=== PATIENT | female | born 1950 | race Caucasian/White ===

== ENCOUNTER → 2018-09-29 14:51 | Outpatient (CLI) | payer MEDICARE, SELFPAY ==
--- NOTE | 2018-09-29 | DI.ECHO.S_ITS ---
[facility] +---------+ : : [address] : : : : [id number] : : : : Phone: [phone]+ Echocardiogram Report + + :Name: CHRISTINA JOHNSON Study Date: 09/29/2018 Height: 66 in : :[facility] Weight: 149 lb : : Gender: Female BSA: 1.8 m2 : :: 1950 Age: 68 yrs BP: 160/70 mmHg: :Reason For Study: Murmur : : Performed By: Lindsay Hoffman : :Referring: MARK FRYE : + + Interpretation Summary Normal sinus rhythm. Normal LV size, wall thickness, wall motion and LV systolic function. EF is 60-65%. Normal chamber sizes. Aortic sclerosis with mild-moderate associated AI. Mitral valve leaflets are normal; mild-moderate central MR. No prior study available for comparison. Procedure: A two-dimensional transthoracic echocardiogram with color flow and Doppler was performed. The study quality was technically adequate. There is no prior echocardiogram noted for this patient. The patient was in normal sinus rhythm during the exam. Left Ventricle: The left ventricle is normal in size, wall thickness, and systolic function without any focal wall motion abnormalities. The ejection fraction is estimated to be 60-65%. Diastolic parameters suggest a relaxation abnormality of the left ventricle, consistent with probable normal filling pressures. Right Ventricle: The right ventricle grossly appears normal in size with probable normal systolic function. Atria: The left atrial size is normal. Right atrial size is normal. The interatrial septum is intact with no evidence for an atrial septal defect. Mitral Valve: The mitral valve is not well visualized. There is mild to moderate mitral regurgitation. Aortic Valve: The aortic valve is trileaflet. The aortic valve opens well. There is mild to moderate aortic regurgitation. Tricuspid Valve: The tricuspid valve leaflets are thin and pliable. There is mild tricuspid regurgitation. The right ventricular systolic pressure is estimated to be at least 33 mmHg based on an estimated right atrial pressure of 8 mm Hg. Pulmonic Valve: The pulmonic valve is not well seen, but is grossly normal. There is trace pulmonic regurgitation. Great Vessels: The aortic root is normal size. The dimensions of the ascending aorta are normal. The aortic arch is normal in size. The IVC is dilated (diameter is greater than 2.1 cm) yet it collapses greater than 50% with a sniff. This suggests a right atrial pressure of 8 mm Hg. Pericardium/ Pleura There is no pericardial effusion. There is no pleural effusion. MMode/2D Measurements & Calculations LVIDd: 4.7 cm Ao root diam: 3.1 cm LVIDs: 2.5 cm Aortic Jxn: 2.5 cm FS: 46.5 % asc Aorta Diam: 3.3 cm EPSS: 0.60 cm Ao Arch Diam (Prox Trans): 2.9 cm IVSd: 0.86 cm LVPWd: 0.75 cm LV avilez. diameter/BSA (cm/m^2): 2.7 LV sys. diameter/BSA (cm/m^2): 1.4 LA dimension: 3.6 cm RA long axis: 5.1 cm LA A2 area: 20.5 cm2 RA area: 16.5 cm2 LA A4 area: 17.8 cm2 RA vol: 45.0 ml LA length (vol): 4.8 cm RA : 25.5 ml/m2 LA vol: 63.7 ml IVC diam: 2.1 cm LA vol index: 36.1 ml/m2 RVDd major: 5.5 cm RVD1 (basal): 3.8 cm RVD2 (mid): 3.1 cm Doppler Measurements & Calculations Ao V2 max: 136.5 cm/sec AI P1/2t: 525.7 msec Ao V2 mean: 86.8 cm/sec AI dec slope: 244.7 cm/sec2 Ao max P.5 mmHg Ao mean P.5 mmHg Ao V2 VTI: 33.2 cm MV E max george: 53.0 cm/sec TR max george: 252.1 cm/sec MV A max george: 82.9 cm/sec TR max P.4 mmHg MV E/A: 0.64 PA V2 max: 68.0 cm/sec Med Peak E' George: 6.4 cm/sec PA V2 mean: 43.4 cm/sec E/E' med: 8.3 PA mean P.90 mmHg Lat Peak E' George: 7.9 cm/sec PA Accel Time: 0.12 sec E/E' lat: 6.7 E/e' average: 7.5 MV dec time: 0.27 sec MV P1/2t: 79.9 msec MR ERO: 0.06 cm2 MV P1/2t max george: 51.7 cm/sec MR flow rate: 37.6 cm3/sec MVA(P1/2t): 2.8 cm2 MR HANEY radius: 0.39 cm Electronically signed by: Vera Dawn M.D. on Reading Physician:09/30/2018 07:19 AM
== END ==
PROVIDERS: PCP Physician Assistant; Visit Provider Physician Assistant
DX: I08.3 Combined rheumatic disorders of mitral, aortic and tricuspid valves (principal); R01.1 Cardiac murmur, unspecified
CPT/HCPCS: 93306

== ENCOUNTER → 2020-10-28 10:38 | Outpatient (CLI) | payer MEDICARE, SELFPAY ==
[2020-10-28 11:51] LABS: Hemoglobin A1C% w Est Avg Glu 5.6 % (4.0-6.0)
[2020-10-28 12:14] LABS: Alanine Aminotransferase 17 IU/L (<35); Albumin 4.3 g/dL (3.5-5.0); Albumin Globulin Ratio 1.3 (1.0-2.8); Alkaline Phosphatase 79 U/L (38-126); Aspartate Aminotransferase 31 IU/L (14-36); BUN Creatinine Ratio 18.9 (6-22); Bilirubin Total 0.7 mg/dL (0.2-1.3); Blood Urea Nitrogen 17 mg/dL (7-17); Calcium 9.2 mg/dL (8.4-10.2); Carbon Dioxide 28 mmol/L (22-32); Chloride 106 mmol/L (98-107); Cholesterol 192 mg/dL (140-199); Estimated Glomerular Filt Rate > 60.0 mL/min (>60); Globulin 3.2 g/dL (1.7-4.1); Glucose 97 mg/dL (80-110); HDL Cholesterol 86 mg/dL (40-60); HEMOLYSIS < 15 (0-50); LDL Cholesterol Calculated 85 mg/dL (<100); Potassium 4.7 mmol/L (3.4-5.1); Sodium 138 mmol/L (137-145); Total Protein 7.5 g/dL (6.3-8.2); Triglycerides 105 mg/dL (35-150)
[2020-10-28 12:16] LABS: Add Manual Diff / Slide Review NO; Basophils Absolute Auto 0 /uL (0-100); Basophils Percent Auto 0.4 % (0-2); Eosinophils Absolute Auto 100 /uL (0-450); Eosinophils Percent Auto 1.9 % (2-4); Hematocrit 38.3 % (36-46); Hemoglobin 12.7 g/dL (12.0-16.0); Lymphocytes Absolute Auto 1800 /uL (1100-4500); Lymphocytes Percent Auto 33.6 % (25-40); Mean Corpuscular HGB Conc 33.1 % (30-36); Mean Corpuscular Hemoglobin 28.6 PG (26-34); Mean Corpuscular Volume 86.2 fL (80-100); Monocytes Absolute Auto 400 /uL (0-900); Monocytes Percent Auto 6.9 % (3-14); Neutrophils Absolute Auto 3100 /uL (1500-7000); Neutrophils Percent Auto 57.2 % (50-75); Platelet Count 215 X10^3/uL (150-400); Red Blood Cell Count 4.44 X10^6/uL (4.0-5.2); Red Cell Distribution Width 13.9 % (11.6-14.8); White Blood Cell Count 5.4 X10^3/uL (4.5-11.0)
[2020-10-28 12:34] LABS: Vitamin D 25 Hydroxy (D3) 15.7 ng/mL (30.0-100.0)
== END ==
PROVIDERS: PCP Physician Assistant; Referring Provider Physician Assistant; Visit Provider Physician Assistant
DX: E78.2 Mixed hyperlipidemia (principal); E55.9 Vitamin D deficiency, unspecified; R73.03 Prediabetes; I10 Essential (primary) hypertension
CPT/HCPCS: 36415; 80053; 80061; 82306; 83036; 85025

== ENCOUNTER → 2021-07-30 09:01 | Outpatient (CLI) | payer MEDICARE, SELFPAY ==
--- NOTE | 2021-07-30 | DI.MRI.S_ITS ---
PROCEDURE: MR HEAD/BRAIN WO/W CON INDICATIONS: Dementia, Alzheimer's disease suspected. TECHNIQUE: Noncontrast axial T1 spin echo, axial T2 fast spin echo, sagittal and axial FLAIR, coronal T2 fast spin echo, axial gradient echo, axial diffusion and ADC through the brain. After the administration of contrast, axial and coronal T1 spin echo with fat saturation through the brain. COMPARISON: None. FINDINGS: Image quality: Excellent. CSF spaces: Basal cisterns are patent. No extra-axial fluid collections. Ventricles are normal in size and shape. Brain: No midline shift. No intracranial bleeds or masses. No abnormal intracranial enhancement. There is cerebral volume loss for age. There is periventricular white matter chronic small vessel ischemic change. The brainstem appears normal. Diffusion-weighted images demonstrate no acute ischemic insults. No chronic ischemic insults. Normal intravascular flow voids are present. Skull and face: Within the left frontal calvarium, there is enhancing focus seen, that measures 7 mm, as on series 13, image 142. Calvarial marrow is otherwise normal in signal. Orbits appear normal. Note is made of bilateral lens replacements. Sinuses: Sinuses and mastoids appear clear. A left-sided ariana bullosa can be seen. Mild rightward nasal septal deviation is seen. IMPRESSION: Brain MRI within normal limits for age, with note made of brain parenchymal volume loss and chronic small vessel ischemic change. 7 mm left frontal calvarial lesion seen, which is most likely benign, although differential diagnosis includes a metastatic focus. Please correlate with known patient history. Attention should be paid to this focus on any future follow-up studies. Dictated by: Bradley Alonso M.D. on 07/30/2021 at 8:45 Approved by: Bradley Alonso M.D. on 07/30/2021 at 8:48
--- NOTE | 2021-07-30 | DI.RAD.S_ITS ---
PROCEDURE: XR DEXA AXIAL SKELETON INDICATIONS: SCREENING FOR OSTEOPOROSIS COMPARISON: None. FINDINGS: This blank DEXA report has been sent in error by the PACS system. The correct and complete report will be forthcoming in 1-2 days. Thank you for your patience and understanding. Dictated by: Alyssa Ponce MD, PhD on 07/30/2021 at 10:47 Approved by: Alyssa Ponce MD, PhD on 07/30/2021 at 10:47
== END ==
PROVIDERS: PCP Physician Assistant; Referring Provider Internal Medicine; Visit Provider Internal Medicine
DX: F03.90 Unspecified dementia, unspecified severity, without behavioral disturbance, psychotic disturbance, mood disturbance, and anxiety (principal); R41.89 Other symptoms and signs involving cognitive functions and awareness; M89.9 Disorder of bone, unspecified; Z13.820 Encounter for screening for osteoporosis; M85.851 Other specified disorders of bone density and structure, right thigh; Z78.0 Asymptomatic menopausal state; Z90.722 Acquired absence of ovaries, bilateral
CPT/HCPCS: 70553; 77080; A9579

== ENCOUNTER → 2021-11-24 10:54 | Outpatient (CLI) | payer MEDICARE, SELFPAY ==
--- NOTE | 2021-11-24 10:56 | DI.MG.S_ITS ---
BILATERAL DIGITAL SCREENING MAMMOGRAM 3D/2D WITH CAD: 11/24/2021 CLINICAL: Routine screening. Baseline by default. No prior exams were available for comparison. The tissue of both breasts is heterogeneously dense. This may lower the sensitivity of mammography. Current study was also evaluated with a Computer Aided Detection (CAD) system. There are grouped calcifications in the left breast at 3 o'clock middle depth. No other significant masses, calcifications, or other findings are seen in either breast. IMPRESSION: INCOMPLETE: NEEDS ADDITIONAL IMAGING EVALUATION The grouped calcifications in the left breast are indeterminate. Magnification and lateral views as well as a diagnostic mammogram are recommended. This exam was interpreted at Station ID: [id number]. NOTE: For mammograms, a report in lay terms will be sent to the patient. Approximately 15% of breast malignancies will not be visualized mammographically. In the management of a palpable breast mass, a negative mammogram must not discourage biopsy of a clinically suspicious lesion. Electronically Signed By: Lupillo shah/nory:11/24/2021 12:11:58 letter sent: Additional Imaging Needed ACR BI-RADS Category 0: Incomplete 3340F
== END ==
PROVIDERS: PCP Physician Assistant; Referring Provider Physician Assistant; Visit Provider Physician Assistant
DX: Z12.31 Encounter for screening mammogram for malignant neoplasm of breast (principal)
CPT/HCPCS: 77063; 77067

== ENCOUNTER → 2021-12-26 13:16 | Outpatient (CLI) | payer MEDICARE, SELFPAY ==
--- NOTE | 2021-12-26 13:19 | DI.MG.S_ITS ---
UNILATERAL LEFT DIGITAL DIAGNOSTIC MAMMOGRAM 3D/2D WITH ADDITIONAL VIEWS: 12/26/2021 CLINICAL: Additional evaluation requested from prior study. Comparison is made to exam dated: 11/24/2021 mammogram - [facility]. The tissue of left breast is heterogeneously dense. This may lower the sensitivity of mammography. There are grouped coarse calcifications in the left breast at 3 o'clock middle depth. No other significant masses or calcifications are seen in the breast. 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 A follow-up left mammogram in 6 months is recommended to demonstrate stability. Findings and recommendations were conveyed to the patient during today's evaluation. This exam was interpreted at Station ID: [id number]. NOTE: For mammograms, a report in lay terms will be sent to the patient. Approximately 15% of breast malignancies will not be visualized mammographically. In the management of a palpable breast mass, a negative mammogram must not discourage biopsy of a clinically suspicious lesion. Electronically Signed By: Ross العلي/:12/26/2021 14:40:19 letter sent: Followup Recommended ACR BI-RADS Category 3: Probably benign 3343F
== END ==
PROVIDERS: PCP Physician Assistant; Referring Provider Physician Assistant; Visit Provider Physician Assistant
DX: R92.8 Other abnormal and inconclusive findings on diagnostic imaging of breast (principal); R92.1 Mammographic calcification found on diagnostic imaging of breast
CPT/HCPCS: 77065; G0279

== ENCOUNTER 2022-01-02 13:34 | Emergency (ER) | payer MEDICARE, SELFPAY ==
[2022-01-02] VITALS (12 sets, daily range): BP systolic 142–177; BP diastolic 67–96; PULSE 65–80; RESP 14; TEMP 36.6; O2SAT 96–98; BMI 23.6
--- NOTE | 2022-01-02 17:14 | ED_ITS ---
HPI - Fall General Chief Complaint: Fall Stated Complaint: fell in yard Time Seen by Provider: 01/02/22 16:49 Source: patient Mode of arrival: Ambulatory History of Present Illness HPI Narrative: Patient is a 71-year-old female who is here with family for evaluation of injuries that she sustained when she fell earlier today. Is reported that the patient lives with her daughter. Was out back picking up dog poop on a incline lawn when his reported that she fell forward hitting her face. There was no loss of consciousness. Patient has no specific complaints. Recently she has had some memory issues and is scheduled to see a neurologist next week along with a neuro psychologist. Patient's family at bedside states she is at [facility]. She does have abrasions to her face. Related Data Home Medications Medication Instructions Recorded Confirmed cyclobenzaprine 5 mg tablet 20 mg PO HS #0 08/03/16 diazepam 10 mg tablet #0 08/03/16 estradiol 1 mg tablet 1 mg PO QDAY #0 08/03/16 metronidazole 0.75 % topical cream #0 08/03/16 (MetroCream) sertraline 100 mg tablet 100 mg PO QDAY #0 08/03/16 Previous Rx's Medication Instructions Recorded ondansetron 4 mg disintegrating 4 mg SUBLINGUAL Q6HP PRN #20 odt 08/03/16 tablet (Zofran ODT) oxycodone-acetaminophen 5 mg-325 1 tab PO Q4HP PRN #20 tab 16 mg tablet (Percocet) Allergies Allergy/AdvReac Type Severity Reaction Status Date / Time lanolin [LANOLIN] Allergy Mild INFLAMED Verified 01/02/22 13:58 FACE bacitracin Allergy Unknown INFLAMMED Verified 01/02/22 13:58 [From NEOSPORIN SKIN ([id number])] neomycin Allergy Unknown INFLAMMED Verified 01/02/22 13:58 [From NEOSPORIN SKIN ([id number])] polymyxin B Allergy Unknown INFLAMMED Verified 01/02/22 13:58 [From NEOSPORIN SKIN ([id number])] citalopram [CITALOPRAM] AdvReac Unknown RECURRENT Verified 01/02/22 13:58 MIGRAINES Review of Systems Constitutional Comments: Denies headache Eyes Eyes: Reports system reviewed and no additional complaints, except as documented ENT Comments: Denies dental pain Cardiovascular Cardiovascular: Reports system reviewed and no additional complaints, except as documented Respiratory Respiratory: Reports system reviewed and no additional complaints, except as documented Gastrointestinal Gastrointestinal: Reports system reviewed and no additional complaints, except as documented Musculoskeletal Musculoskeletal: Reports system reviewed and no additional complaints, except as documented Integumentary/Breasts Skin/Breast: Reports system reviewed and no additional complaints, except as d ocumented Neurologic Neurologic: Reports system reviewed and no additional complaints, except as documented Hematologic/Lymphatic On Anticoagulants: No Patient History Social History Smoking Status: Unknown if ever smoked Smoking Status: Unknown if ever smoked alcohol intake frequency: holidays/special occasions only Substance Use Type: does not use Exam Initial Vital Signs Initial Vital Signs: Vital Signs Temperature 97.9 F 01/02/22 13:59 Pulse Rate 80 01/02/22 13:59 Respiratory Rate 14 01/02/22 13:59 Blood Pressure 168/75 H 01/02/22 13:59 Pulse Oximetry 98 01/02/22 13:59 Const General: cooperative, healthy appearing and well developed HENMT Ears: hearing grossly normal bilaterally and TM's normal bilaterally Nose: No nasal discharge Mouth: tongue normal and moist mucous membranes Other HENMT:: Maxilla intact Resp Effort & Inspection: normal respiratory effort Cardio Rate: regular rate GI Inspection: normal to inspection and non-distended Skin Other: Superficial abrasions on her forehead over her nose and her right upper lip. No active bleeding. Neuro General: patient alert, patient awake, patient oriented x3 (Person and place) and moves all extremities Extrem General: normal to inspection and capillary refill normal Course Orders Ordered: ED Orders 01/02/22 17:48 Basic Metabolic Panel Stat Complete Blood Count AUTO DIFF Stat Vital Signs Vital signs: Vital Signs - 8 hr 01/02/22 13:59 Temperature 97.9 F Pulse Rate 80 Respiratory Rate 14 Blood Pressure 168/75 H Pulse Oximetry 98 MDM - Fall Lab Data Result diagrams: 01/02/22 17:48 01/02/22 17:48 Labs: Lab Results 01/02/22 01/02/22 Range/Units 17:48 17:48 WBC 4.1 L (4.5-11.0) X10^3/uL RBC 4.23 (4.0-5.2) X10^6/uL Hgb 12.0 (12.0-16.0) g/dL Hct 34.9 L (36-46) % MCV 82.6 (80-100) fL MCH 28.4 (26-34) PG MCHC 34.3 (30-36) % RDW 14.2 (11.6-14.8) % Plt Count 178 (150-400) X10^3/uL Neut % (Auto) 64.6 (50-75) % Lymph % (Auto) 23.7 L (25-40) % [place] % (Auto) 7.8 (3-14) % Eos % (Auto) 3.2 (2-4) % Baso % (Auto) 0.7 (0-2) % Neut # (Auto) 2700 (6724-8070) /uL Lymph # (Auto) 1000 L (9349-9044) /uL [place] # (Auto) 300 (0-900) /uL Eos # (Auto) 100 (0-450) /uL Baso # (Auto) 0 (0-100) /uL Sodium 138 (137-145) mmol/L Potassium 4.3 (3.4-5.1) mmol/L Chloride 106 (98-107) mmol/L Carbon Dioxide 24 (22-32) mmol/L BUN 18 H (7-17) mg/dL Creatinine 1.23 H (0.52-1.04) mg/dL Estimated GFR 46 L (>60) mL/min BUN/Creatinine Ratio 14.6 (6-22) Glucose 95 (80-110) mg/dL Calcium 8.9 (8.4-10.2) mg/dL MDM Narrative Medical decision making narrative: Does appear to be a mechanical fall after losing her balance on a inclined in the yard. Not on anticoagulation. Is at baseline neurologic status per family. Has superficial abrasions on her face. Labs relatively unremarkable. I do feel that we can hold on a head CT for now as I have low suspicion for skull fracture or intracranial hemorrhage given her presentation today. Plan to be is to discharge home to continue with her scheduled outpatient follow-up. Patient and daughter were given return precautions. They expressed understanding and agreement. Discharge Plan Departure Patient Disposition: Home Clinical Impression: Closed head injury, Abrasion of face Instructions: How to Prevent Falls Activity Restrictions/Additional Instructions: Continue to take all of your medications as directed and keep all of your scheduled medical appointments. Return to the emergency department for any new or worsening symptoms. Prescriptions: No Action cyclobenzaprine 5 MG tablet 20 mg PO HS Qty: 0 0RF estradiol 1 MG tablet 1 mg PO QDAY Qty: 0 0RF diazepam 10 MG tablet Qty: 0 0RF sertraline 100 MG tablet 100 mg PO QDAY Qty: 0 0RF metronidazole [MetroCream] 0.75 % cream Qty: 0 0RF oxycodone-acetaminophen [Percocet] 5 MG/325 MG tablet 1 tab PO Q4HP PRNQty: 20 0RF ondansetron [Zofran ODT] 4 MG tablet,disintegrating 4 mg Sublingual Q6HP PRNQty: 20 0RF Referrals: Katia Thomas PA-C [Primary Care Provider] -
[2022-01-02 18:04] LABS: Add Manual Diff / Slide Review NO; Basophils Absolute Auto 0 /uL (0-100); Basophils Percent Auto 0.7 % (0-2); Eosinophils Absolute Auto 100 /uL (0-450); Eosinophils Percent Auto 3.2 % (2-4); Hematocrit 34.9 % (36-46); Lymphocytes Absolute Auto 1000 /uL (1100-4500); Lymphocytes Percent Auto 23.7 % (25-40); Mean Corpuscular HGB Conc 34.3 % (30-36); Mean Corpuscular Hemoglobin 28.4 PG (26-34); Mean Corpuscular Volume 82.6 fL (80-100); Monocytes Absolute Auto 300 /uL (0-900); Monocytes Percent Auto 7.8 % (3-14); Neutrophils Absolute Auto 2700 /uL (1500-7000); Neutrophils Percent Auto 64.6 % (50-75); Platelet Count 178 X10^3/uL (150-400); Red Blood Cell Count 4.23 X10^6/uL (4.0-5.2); Red Cell Distribution Width 14.2 % (11.6-14.8); White Blood Cell Count 4.1 X10^3/uL (4.5-11.0)
[2022-01-02 18:09] LABS: BUN Creatinine Ratio 14.6 (6-22); Blood Urea Nitrogen 18 mg/dL (7-17); Calcium 8.9 mg/dL (8.4-10.2); Carbon Dioxide 24 mmol/L (22-32); Chloride 106 mmol/L (98-107); Estimated Glomerular Filt Rate 46 mL/min (>60); Glucose 95 mg/dL (80-110); HEMOLYSIS 20 (0-50); Potassium 4.3 mmol/L (3.4-5.1); Sodium 138 mmol/L (137-145)
== END 2022-01-02 18:42 | disposition home or self-care (01) ==
PROVIDERS: Emergency Provider Emergency Medicine; PCP Physician Assistant
DX: S09.90XA Unspecified injury of head, initial encounter (principal); S00.81XA Abrasion of other part of head, initial encounter; W18.30XA Fall on same level, unspecified, initial encounter
CPT/HCPCS: 36415; 80048; 85025; 99283

== ENCOUNTER 2022-05-05 10:30 | Outpatient (RCR) | payer MEDICARE, SELFPAY ==
--- NOTE | 2022-02-12 13:57 | PT-OP ANOTE ---
Pt and her daughter forgot about appointment today, called 5 minutes before scheduled start time to cancel. Will plan to evaluate pt at next scheduled visit. Pt was reminded of attendance policy.
--- NOTE | 2022-02-19 15:57 | PT.OIE ---
Current Diagnoses Unsteadiness on feet (02/19/22) Other abnormalities of gait and mobility (02/19/22) Other symptoms and signs involving cognitive functions and awareness (02/19/22) History of falling (02/19/22) Visit Care Team Role Provider Type Katia Thomas PA-C Family Provider Non-Staff Primary Care Provider Specialty: Internal Medicine Address: [address] [place] [address], [id number] Email: [email or web address] Mayra Mariscal Attending Provider Non-Staff Referring Provider Specialty: Psychiatry Address: [address] [place] [address], [id number] Email: Physical Therapy Initial Evaluation PT-OP-A Visit Information Start: 02/11/22 08:27 Freq: Status: Active Protocol: Document 02/19/22 13:44 AMB (Rec: 02/19/22 14:49 AMB [id number]) Out-Patient Physical Therapy Visit Information Visit Information Visit Type Initial Evaluation Visit Start Time 13:45 Visit Stop Time 14:30 Total Visit Minutes 45 Visit Number 2 PT-OP-B Current Condition Start: 02/11/22 08:27 Freq: Status: Active Protocol: Document 02/19/22 13:44 AMB (Rec: 02/19/22 14:49 AMB [id number]) Current Condition History of Current Condition Onset Date November 2021 Current Complaints Multiple falls, difficulty with overall mobility History of Current Condition Helen (pronounced Catherine with an L): attends without AD, but is guarded closely by her daughter Kristin and needs assistance with pathfinding. Neurology on 01/28/22 for memory loss. Pt has gait instability , depression, anxiety, neck pain, insomnia (without REM disorder), BUE tremors. MOCA score of 30. Began trial of sinemet. Recommendation for hearing aids. History of tinnitus. Neuropsych in December suggested possible Lewy body dementia Daughter, Kristin lives with pt, pays bills, manages appointments, and cooks. Spouse in 2019 from glioblastoma - increased depression. Likes to sew and do puzzles but has not engaged lately. Kristin is no longer working outside the home due to taking care of her mom, she is concerned about her mom's large 4 year old dog being a balance hazard. Recent falls (daughter reports at least 5 in the last 6 months). Increased functional decline and memory loss. No longer walking dog. Daughter is concerned about sit to stand and then when prompted is also concerned about floor transfer, bed mobility, appropriate assistive device. No stairs in home, but 3 stairs to enter without railings. Does have a shower stool, but pt doesn't think she needs to use it, Kristin reports it can take Lanne 1-2 hours to get dressed, but she does do it herself. Prior Functional Status Baseline Function- ADL's Independent Baseline Function- Mobility Independent Current Functional Impairments (Reported) Functional Limitations- ADL's extended time needed for dressing, no longer cooking, driving. Personal Factors Other Personal Factors That May Effect Lanne reports R hip pain with Therapy/Recovery walking PT-OP-E Functional Tests Start: 02/11/22 08:27 Freq: Status: Active Protocol: Document 02/19/22 14:30 AMB (Rec: 02/19/22 15:40 AMB [id number]) Functional Tests 10 Meter Walk Test Distance 7 Device Used none Comments fast =7 seconds, 10= self selected pace Dynamic Gait Index (DGI) Score 6 DGI Impairment Rating 60 to <80% Impaired (Score 5-9 ) PT-OP-G Mobility & Gait Start: 02/11/22 08:27 Freq: Status: Active Protocol: Document 02/19/22 14:30 AMB (Rec: 02/19/22 15:40 AMB [id number]) OP Mobility Evaluation Transfers Sit to Stand heavy verbal and physical cues for sit to stand- pt usually needs Luda or something to pull on at home per daughter, cued WBOS, feet underneath MONSERRAT , nose over toes to encourage forward lean, pt tends to have post LOB OP Gait Assessment Comments Gait Comments Shuffling gait pattern, does tend to catch toes, not currently using AD, needs CGA/ Luda to prevent LOB Stair Climbing Evaluation Evaluation Level of Assist On Stairs Contact Guard Assistance Devices Stair Climbing Assistive Devices Left Railing,Right Railing Comments Stair Climbing Comments CGA can ascend and descend 4 steps with 2 railings with alternating gait pattern, but needs extra time to really feel where she is placing her feet PT-OP-M Strength Start: 02/11/22 08:27 Freq: Status: Active Protocol: Document 02/19/22 14:30 AMB (Rec: 02/19/22 15:40 AMB [id number]) Hip Strength Hip Manual Muscle Testing Right Flexion (L2) 4+ Good+ Abduction 4 Good Adduction 4 Good Comments tested in seated Left Flexion (L2) 4+ Good+ Abduction 4 Good Adduction 4 Good Comments tested in seated Knee Strength Knee Manual Muscle Testing Right Flexion (S2) 5 Normal Extension (L3) 5 Normal Left Flexion (S2) 5 Normal Extension (L3) 5 Normal Ankle/Foot Strength Ankle and Foot Manual Muscle Testing Right Dorsiflexion (L4) 4 Good Plantarflexion (S1) 4 Good Left Dorsiflexion (L4) 4 Good Plantarflexion (S1) 4 Good PT-OP-T Assessment and Plan Start: 02/11/22 08:27 Freq: Status: Active Protocol: Document 02/19/22 15:45 AMB (Rec: 02/19/22 15:56 AMB [id number]) Physical Therapy Assessment Rehab Potential Rehabilitation Potential Good Evaluation Complexity Number of Personal Factors/Comorbidities 1-2 Impairments Impairments Activity Tolerance,Balance, Functional Activities, Functional Mobility,Gait,Pain, Posture,Strength Goals Two Impairment Sit to stand Short Term Goal (STG) Helen will stand from a standard height chair using UE support but without posterior LOB. STG Duration 4 weeks Clinical Appeals Auditor Goal (LTG) Helen will stand 5x from a standard height chair in 20 seconds or less. LTG Duration 8 weeks One Impairment Gait Short Term Goal (STG) Helen will improve her DGI score to 12/24 or greater to show reduced risk of falling. STG Duration 4 weeks Snf Goal (LTG) Helen will ambulate with an appropriate AD for 6 minutes over smooth terrain without LOB or right hip pain. LTG Duration 8 weeks Assessment Summary Assessment Helen attends physical therapy with her daughter Kristin with working diagnosis of Lewy Body dementia. The patient and her daughter are mostly concerned with her transfers ( sit to stand) and gait and reducing her fall risk and keeping her as independent as possible for as long as possible. Helen is also concerned about her right hip pain, freezing episodes, and shuffling gait. Her DGI score and history of falls put her in a high fall risk category. Would benefit from assistive device training if it is helpful, as well as instruction in sit to stand, floor transfer, bed mobility training. Physical Therapy Plan Frequency and Duration Frequency of Treatment 2x/Week Duration of Treatment 8 weeks Plan of Care Start Date 02/19/22 Plan of Care End Date 04/20/22 Therapeutic Interventions Therapeutic Interventions Balance Training,Gait Training ,Joint Mobilizations,Manual Therapy,Neuromuscular Re- education,Self-Care/Home Management,Therapeutic Activities,Therapeutic Exercises Modalities Cold Pack/Ice Massage,Electric Stimulation,Hot Packs Next Visit Focus/Plan Next Note Type Treatment Note Next Visit Plan Educate Kristin on assistive device options and assess safety (does Helen have the ability to use an AD safely with training). Reassess HEP for sit to stand (focusing on forward lean/good amplitude/ motor planning). Progress HEP as tolerated.
--- NOTE | 2022-02-19 15:58 | PT.OPPOC ---
Physical, Occupational & Speech Therapy At [facility] Current Diagnoses Unsteadiness on feet (02/19/22) Other abnormalities of gait and mobility (02/19/22) Other symptoms and signs involving cognitive functions and awareness (02/19/22) History of falling (02/19/22) Visit Care Team Role Provider Type Katia Thomas PA-C Family Provider Non-Staff Primary Care Provider Specialty: Internal Medicine Address: [address] [place] [address], [id number] Email: [email or web address] Mayra Mariscal Attending Provider Non-Staff Referring Provider Specialty: Psychiatry Address: [address] [place] [address] [place], [address] Email: Plan Of Care PT-OP-T Assessment and Plan Start: 02/11/22 08:27 Freq: Status: Active Protocol: Document 02/19/22 15:45 AMB (Rec: 02/19/22 15:56 AMB [id number]) Physical Therapy Assessment Rehab Potential Rehabilitation Potential Good Evaluation Complexity Number of Personal Factors/Comorbidities 1-2 Impairments Impairments Activity Tolerance,Balance, Functional Activities, Functional Mobility,Gait,Pain, Posture,Strength Goals Two Impairment Sit to stand Short Term Goal (STG) Helen will stand from a standard height chair using UE support but without posterior LOB. STG Duration 4 weeks Carrot Buncher Goal (LTG) Helen will stand 5x from a standard height chair in 20 seconds or less. LTG Duration 8 weeks One Impairment Gait Short Term Goal (STG) Helen will improve her DGI score to 12/24 or greater to show reduced risk of falling. STG Duration 4 weeks Care Home Goal (LTG) Helen will ambulate with an appropriate AD for 6 minutes over smooth terrain without LOB or right hip pain. LTG Duration 8 weeks Assessment Summary Assessment Helen attends physical therapy with her daughter Kristin with working diagnosis of Lewy Body dementia. The patient and her daughter are mostly concerned with her transfers ( sit to stand) and gait and reducing her fall risk and keeping her as independent as possible for as long as possible. Helen is also concerned about her right hip pain, freezing episodes, and shuffling gait. Her DGI score and history of falls put her in a high fall risk category. Would benefit from assistive device training if it is helpful, as well as instruction in sit to stand, floor transfer, bed mobility training. Physical Therapy Plan Frequency and Duration Frequency of Treatment 2x/Week Duration of Treatment 8 weeks Plan of Care Start Date 02/19/22 Plan of Care End Date 04/20/22 Therapeutic Interventions Therapeutic Interventions Balance Training,Gait Training ,Joint Mobilizations,Manual Therapy,Neuromuscular Re- education,Self-Care/Home Management,Therapeutic Activities,Therapeutic Exercises Modalities Cold Pack/Ice Massage,Electric Stimulation,Hot Packs Next Visit Focus/Plan Next Note Type Treatment Note Next Visit Plan Educate Kristin on assistive device options and assess safety (does Helen have the ability to use an AD safely with training). Reassess HEP for sit to stand (focusing on forward lean/good amplitude/ motor planning). Progress HEP as tolerated. Plan of Care Dates Plan of Care Start Date 02/19/22 Plan of Care End Date 04/20/22 Electronically Signed by: Radha Aaron, PT 02/19/22 7005 If you are in agreement with this Plan of Care, please return a signed and dated copy. I have reviewed this Plan of Care and certify that the skilled therapy services above are required to meet the patient?s needs. Physician Signature Date Printed Name and Credentials Clinical Instructor Signature Printed Name and Credentials
--- NOTE | 2022-02-24 12:09 | PT.OTN ---
Current Diagnoses Unsteadiness on feet (02/24/22) Other abnormalities of gait and mobility (02/24/22) Other symptoms and signs involving cognitive functions and awareness (02/24/22) History of falling (02/24/22) Physical Therapy Treatment Note PT-OP-A Visit Information Start: 02/11/22 08:27 Freq: Status: Active Protocol: Document 02/24/22 10:40 NBM (Rec: 02/24/22 12:09 NBM [id number]) Out-Patient Physical Therapy Visit Information Visit Information Visit Type Initial Evaluation Visit Start Time 10:40 Visit Stop Time 11:26 Total Visit Minutes 46 Visit Number 2 Number of ACCOUNTS PAYABLE ADMINISTRATOR Visits 1 PT-OP-B Current Condition Start: 02/11/22 08:27 Freq: Status: Active Protocol: Document 02/19/22 13:44 AMB (Rec: 02/19/22 14:49 AMB [id number]) Current Condition History of Current Condition Onset Date November 2021 Current Complaints Multiple falls, difficulty with overall mobility History of Current Condition Helen (ginny Alexander with an L): attends without AD, but is guarded closely by her daughter Kristin and needs assistance with pathfinding. Neurology on 01/28/22 for memory loss. Pt has gait instability , depression, anxiety, neck pain, insomnia (without REM disorder), BUE tremors. MOCA score of 1230. Began trial of sinemet. Recommendation for hearing aids. History of tinnitus. Neuropsych in December suggested possible Lewy body dementia Daughter, Kristin lives with pt, pays bills, manages appointments, and cooks. Spouse in 2019 from glioblastoma - increased depression. Likes to sew and do puzzles but has not engaged lately. Kristin is no longer working outside the home due to taking care of her mom, she is concerned about her mom's large 4 year old dog being a balance hazard. Recent falls (daughter reports at least 5 in the last 6 months). Increased functional decline and memory loss. No longer walking dog. Daughter is concerned about sit to stand and then when prompted is also concerned about floor transfer, bed mobility, appropriate assistive device. No stairs in home, but 3 stairs to enter without railings. Does have a shower stool, but pt doesn't think she needs to use it, Kristin reports it can take Helen 1-2 hours to get dressed, but she does do it herself. Prior Functional Status Baseline Function- ADL's Independent Baseline Function- Mobility Independent Current Functional Impairments (Reported) Functional Limitations- ADL's extended time needed for dressing, no longer cooking, driving. Personal Factors Other Personal Factors That May Effect Helen reports R hip pain with Therapy/Recovery walking PT-OP-C Subjective Start: 02/11/22 08:27 Freq: Status: Active Protocol: Document 02/24/22 10:40 NBM (Rec: 02/24/22 12:09 NBM [id number]) OP-PT Subjective Patient Comments Patient Comments Pt arrives w/o AD and with daughter Kristin. Pt experiences a hiccup in her R hip with standing and sitting. Daughter reports Helen fell two days ago on that hip which might be why it 's bothering her. Pt has been practicing Sit<>Stands at home and would like to explore AD options. PT-OP-E Functional Tests Start: 02/11/22 08:27 Freq: Status: Active Protocol: Document 02/19/22 14:30 AMB (Rec: 02/19/22 15:40 AMB [id number]) Functional Tests 10 Meter Walk Test Distance 7 Device Used none Comments fast =7 seconds, 10= self selected pace Dynamic Gait Index (DGI) Score 6 DGI Impairment Rating 60 to <80% Impaired (Score 5-9 ) PT-OP-G Mobility & Gait Start: 02/11/22 08:27 Freq: Status: Active Protocol: Document 02/19/22 14:30 AMB (Rec: 02/19/22 15:40 AMB [id number]) OP Mobility Evaluation Transfers Sit to Stand heavy verbal and physical cues for sit to stand- pt usually needs Luda or something to pull on at home per daughter, cued WBOS, feet underneath MONSERRAT , nose over toes to encourage forward lean, pt tends to have post LOB OP Gait Assessment Comments Gait Comments Shuffling gait pattern, does tend to catch toes, not currently using AD, needs CGA/ Luda to prevent LOB Stair Climbing Evaluation Evaluation Level of Assist On Stairs Contact Guard Assistance Devices Stair Climbing Assistive Devices Left Railing,Right Railing Comments Stair Climbing Comments CGA can ascend and descend 4 steps with 2 railings with alternating gait pattern, but needs extra time to really feel where she is placing her feet PT-OP-M Strength Start: 02/11/22 08:27 Freq: Status: Active Protocol: Document 02/19/22 14:30 AMB (Rec: 02/19/22 15:40 AMB [id number]) Hip Strength Hip Manual Muscle Testing Right Flexion (L2) 4+ Good+ Abduction 4 Good Adduction 4 Good Comments tested in seated Left Flexion (L2) 4+ Good+ Abduction 4 Good Adduction 4 Good Comments tested in seated Knee Strength Knee Manual Muscle Testing Right Flexion (S2) 5 Normal Extension (L3) 5 Normal Left Flexion (S2) 5 Normal Extension (L3) 5 Normal Ankle/Foot Strength Ankle and Foot Manual Muscle Testing Right Dorsiflexion (L4) 4 Good Plantarflexion (S1) 4 Good Left Dorsiflexion (L4) 4 Good Plantarflexion (S1) 4 Good PT-OP-Q Treatments Start: 02/11/22 08:27 Freq: Status: Active Protocol: Document 02/24/22 10:40 NBM (Rec: 02/24/22 12:09 NBM [id number]) Therapeutic Exercises Sitting Exercises Scapular Retraction Sitting Exercise Name Shoulder blade squeeze Reps/Minutes 10 x 5SH Comments Verbal/Tactile cueing Therapeutic Activity Therapeutic Activity STS Name Sit to Stand Reps/Minutes 1 x 10 Comments VC for motor planning: Scoot to Edge, feet apart, nose over toes, push off chair. For sitting vc for feeling chair on back of legs and reaching back. Gait Training Gait Activity AD Trial Description Seated breaks between each trial Device Used 1. SPC 2. FWW 3. 4WW Level of Assistance CGA Surface Carpet, Tile Distance/Duration 25 ft ea Comments SPC: Pt demonstrated safe step -through gait pattern w/ initial vc for upright posture and gait pattern. FWW: Pt demonstrated safe step -through gait pattern w/ vc for walker proximity and upright posture and pacing. Pt needs cuing not to use FWW w/ Sit<>Stand. 4WW: Pt demonstrates safe step -through gait pattern w/ vc for pacing and upright posture. Pt requires cues to apply brakes and for UE placement before Sit<>Stand. PT-OP-T Assessment and Plan Start: 02/11/22 08:27 Freq: Status: Active Protocol: Document 02/24/22 10:40 NBM (Rec: 02/24/22 12:09 NBM [id number]) Physical Therapy Assessment Goals Two Impairment Sit to stand Short Term Goal (STG) Helen will stand from a standard height chair using UE support but without posterior LOB. STG Duration 4 weeks Half-Way Goal (LTG) Helen will stand 5x from a standard height chair in 20 seconds or less. LTG Duration 8 weeks One Impairment Gait Short Term Goal (STG) Helen will improve her DGI score to 12/24 or greater to show reduced risk of falling. STG Duration 4 weeks Beam Press Operator Goal (LTG) Helen will ambulate with an appropriate AD for 6 minutes over smooth terrain without LOB or right hip pain. LTG Duration 8 weeks Assessment Summary Assessment Sit<>Stand motor planning improved with repetition but requires cueing for wider base of support. Pt demonstrates safety with SPC but wants more stability. Gait w/ FWW pt needs vc for keeping walker closer and upright posture, and uses step-to gait pattern. With 4WW pt demonstrates step -through gait pattern on carpet and tile, and needs vc for upright posture, and pt prefers 4WW. Discussed importance of using brakes and not using FWW for Sit<>Stand. Physical Therapy Plan Next Visit Focus/Plan Next Note Type Treatment Note Next Visit Plan Reassess chosen AD for safety (pt and daughter''s preference end of treatment is FWW. If not obtained yet pt will bring their SPC in meantime). Reassess HEP for sit to stand (focusing on forward lean/good amplitude/motor planning) and seated scapular retraction. Progress HEP as tolerated - consider hip abduction/ extension exercises.
--- NOTE | 2022-02-26 17:08 | PT.OTN ---
Current Diagnoses Unsteadiness on feet (02/26/22) Other abnormalities of gait and mobility (02/26/22) Other symptoms and signs involving cognitive functions and awareness (02/26/22) History of falling (02/26/22) Physical Therapy Treatment Note PT-OP-A Visit Information Start: 02/11/22 08:27 Freq: Status: Active Protocol: Document 02/26/22 12:53 AW (Rec: 02/26/22 13:51 AW [id number]) Out-Patient Physical Therapy Visit Information Visit Information Visit Type Treatment Note Visit Start Time 13:00 Visit Stop Time 13:45 Total Visit Minutes 45 Visit Number 3 Number of DOLLY PUSHER Visits 0 PT-OP-B Current Condition Start: 02/11/22 08:27 Freq: Status: Active Protocol: Document 02/19/22 13:44 AMB (Rec: 02/19/22 14:49 AMB [id number]) Current Condition History of Current Condition Onset Date November 2021 Current Complaints Multiple falls, difficulty with overall mobility History of Current Condition Helen (ginny Alexander with an L): attends without AD, but is guarded closely by her daughter Kristin and needs assistance with pathfinding. Neurology on 01/28/22 for memory loss. Pt has gait instability , depression, anxiety, neck pain, insomnia (without REM disorder), BUE tremors. MOCA score of 08/21. Began trial of sinemet. Recommendation for hearing aids. History of tinnitus. Neuropsych in December suggested possible Lewy body dementia Daughter, Kristin lives with pt, pays bills, manages appointments, and cooks. Spouse in 2019 from glioblastoma - increased depression. Likes to sew and do puzzles but has not engaged lately. Kristin is no longer working outside the home due to taking care of her mom, she is concerned about her mom's large 4 year old dog being a balance hazard. Recent falls (daughter reports at least 5 in the last 6 months). Increased functional decline and memory loss. No longer walking dog. Daughter is concerned about sit to stand and then when prompted is also concerned about floor transfer, bed mobility, appropriate assistive device. No stairs in home, but 3 stairs to enter without railings. Does have a shower stool, but pt doesn't think she needs to use it, Kristin reports it can take Helen 1-2 hours to get dressed, but she does do it herself. Prior Functional Status Baseline Function- ADL's Independent Baseline Function- Mobility Independent Current Functional Impairments (Reported) Functional Limitations- ADL's extended time needed for dressing, no longer cooking, driving. Personal Factors Other Personal Factors That May Effect Helen reports R hip pain with Therapy/Recovery walking PT-OP-C Subjective Start: 02/11/22 08:27 Freq: Status: Active Protocol: Document 02/26/22 12:53 AW (Rec: 02/26/22 13:51 AW [id number]) OP-PT Subjective Patient Comments Patient Comments Pt and daughter, Kristin, plan to go to [employer] tomorrow to grain picker a 4WW. PT-OP-E Functional Tests Start: 02/11/22 08:27 Freq: Status: Active Protocol: Document 02/19/22 14:30 AMB (Rec: 02/19/22 15:40 AMB [id number]) Functional Tests 10 Meter Walk Test Distance 7 Device Used none Comments fast =7 seconds, 10= self selected pace Dynamic Gait Index (DGI) Score 6 DGI Impairment Rating 60 to <80% Impaired (Score 5-9 ) PT-OP-G Mobility & Gait Start: 02/11/22 08:27 Freq: Status: Active Protocol: Document 02/19/22 14:30 AMB (Rec: 02/19/22 15:40 AMB [id number]) OP Mobility Evaluation Transfers Sit to Stand heavy verbal and physical cues for sit to stand- pt usually needs Luda or something to pull on at home per daughter, cued WBOS, feet underneath MONSERRAT , nose over toes to encourage forward lean, pt tends to have post LOB OP Gait Assessment Comments Gait Comments Shuffling gait pattern, does tend to catch toes, not currently using AD, needs CGA/ Luda to prevent LOB Stair Climbing Evaluation Evaluation Level of Assist On Stairs Contact Guard Assistance Devices Stair Climbing Assistive Devices Left Railing,Right Railing Comments Stair Climbing Comments CGA can ascend and descend 4 steps with 2 railings with alternating gait pattern, but needs extra time to really feel where she is placing her feet PT-OP-M Strength Start: 02/11/22 08:27 Freq: Status: Active Protocol: Document 02/19/22 14:30 AMB (Rec: 02/19/22 15:40 AMB [id number]) Hip Strength Hip Manual Muscle Testing Right Flexion (L2) 4+ Good+ Abduction 4 Good Adduction 4 Good Comments tested in seated Left Flexion (L2) 4+ Good+ Abduction 4 Good Adduction 4 Good Comments tested in seated Knee Strength Knee Manual Muscle Testing Right Flexion (S2) 5 Normal Extension (L3) 5 Normal Left Flexion (S2) 5 Normal Extension (L3) 5 Normal Ankle/Foot Strength Ankle and Foot Manual Muscle Testing Right Dorsiflexion (L4) 4 Good Plantarflexion (S1) 4 Good Left Dorsiflexion (L4) 4 Good Plantarflexion (S1) 4 Good PT-OP-Q Treatments Start: 02/11/22 08:27 Freq: Status: Active Protocol: Document 02/26/22 12:53 AW (Rec: 02/26/22 13:51 AW [id number]) Cardio Equipment Recumbent Elliptical (Biodex) Duration (Minutes) 5 Resistance 3 Seat Position 5 seen Other pt unable to maintain 20-30 rpm Therapeutic Exercises Sitting Exercises Scapular Retraction Sitting Exercise Name Shoulder blade squeeze Reps/Minutes 10 x 5SH Comments Verbal/Tactile cueing Standing Exercises heel lift Standing Exercise Name heel lift Side bilateral Resistance AROM Equipment Used rail for UE support Reps/Minutes 2x15 Comments HEP Therapeutic Activity Therapeutic Activity STS Name Sit to Stand Reps/Minutes 2 x 10 Comments Continued VC for motor planning: Scoot to Edge, feet apart, nose over toes, push off chair. For sitting vc for feeling chair on back of legs and reaching back. Gait Training Gait Activity 4WW Description gait with 4WW Device Used 4WW Level of Assistance SBA Surface tile, carpet Distance/Duration 190' x 3 Treatment Focus proximity to walker, safety during transfers Comments Cued pt to keep elbows more in line with shoulders. Posture is good. Pt does tend to have freezing of gait episodes. Cued pt to stop, stand tall, shift weight, and take a big step when freezing begins. Would be helpful to work on starting and stopping. Neuro Re-Education Treatment Balance Activities NBOS Details NBOS Surface firm Comments EO, EC, head turns, nods. Focused on weight distribution to counter retro lean. Clinic only. PT-OP-T Assessment and Plan Start: 02/11/22 08:27 Freq: Status: Active Protocol: Document 02/26/22 12:53 AW (Rec: 02/26/22 13:51 AW [id number]) Physical Therapy Assessment Goals Two Impairment Sit to stand Short Term Goal (STG) Helen will stand from a standard height chair using UE support but without posterior LOB. STG Duration 4 weeks Custodial Goal (LTG) Helen will stand 5x from a standard height chair in 20 seconds or less. LTG Duration 8 weeks One Impairment Gait Short Term Goal (STG) Helen will improve her DGI score to 12/24 or greater to show reduced risk of falling. STG Duration 4 weeks Custodial Goal (LTG) Helen will ambulate with an appropriate AD for 6 minutes over smooth terrain without LOB or right hip pain. LTG Duration 8 weeks Assessment Summary Assessment Helen plans to obtain a 4WW from [employer] tomorrow. Treatment today focused on gait including using 4WW as a seat. Continued focus on sit to stand. Added heel lift for HEP. Initiated standing static balance work today but pt is not safe to practice at home at this time. Will reassess next visit. Physical Therapy Plan Frequency and Duration Frequency of Treatment 2x/Week Duration of Treatment 8 weeks Plan of Care Start Date 02/19/22 Plan of Care End Date 04/20/22 Therapeutic Interventions Therapeutic Interventions Balance Training,Gait Training ,Joint Mobilizations,Manual Therapy,Neuromuscular Re- education,Self-Care/Home Management,Therapeutic Activities,Therapeutic Exercises Modalities Cold Pack/Ice Massage,Electric Stimulation,Hot Packs Next Visit Focus/Plan Next Note Type Treatment Note Next Visit Plan Continue gait training with 4WW. Investigate freezing triggers and review steps to address FOG. Review HEP. Consider hip abduction/ extension exercises.
--- NOTE | 2022-03-03 16:36 | PT.OTN ---
Current Diagnoses Unsteadiness on feet (03/03/22) Other abnormalities of gait and mobility (03/03/22) Other symptoms and signs involving cognitive functions and awareness (03/03/22) History of falling (03/03/22) Physical Therapy Treatment Note PT-OP-A Visit Information Start: 02/11/22 08:27 Freq: Status: Active Protocol: Document 03/03/22 12:58 AW (Rec: 03/03/22 13:46 AW [id number]) Out-Patient Physical Therapy Visit Information Visit Information Visit Type Treatment Note Visit Start Time 13:00 Visit Stop Time 13:45 Total Visit Minutes 45 Visit Number 4 Number of CODING DIRECTOR Visits 0 PT-OP-B Current Condition Start: 02/11/22 08:27 Freq: Status: Active Protocol: Document 02/19/22 13:44 AMB (Rec: 02/19/22 14:49 AMB [id number]) Current Condition History of Current Condition Onset Date November 2021 Current Complaints Multiple falls, difficulty with overall mobility History of Current Condition Helen (ginny Alexander with an L): attends without AD, but is guarded closely by her daughter Kristin and needs assistance with pathfinding. Neurology on 01/28/22 for memory loss. Pt has gait instability , depression, anxiety, neck pain, insomnia (without REM disorder), BUE tremors. MOCA score of 08/21. Began trial of sinemet. Recommendation for hearing aids. History of tinnitus. Neuropsych in December suggested possible Lewy body dementia Daughter, Kristin lives with pt, pays bills, manages appointments, and cooks. Spouse in 2019 from glioblastoma - increased depression. Likes to sew and do puzzles but has not engaged lately. Kristin is no longer working outside the home due to taking care of her mom, she is concerned about her mom's large 4 year old dog being a balance hazard. Recent falls (daughter reports at least 5 in the last 6 months). Increased functional decline and memory loss. No longer walking dog. Daughter is concerned about sit to stand and then when prompted is also concerned about floor transfer, bed mobility, appropriate assistive device. No stairs in home, but 3 stairs to enter without railings. Does have a shower stool, but pt doesn't think she needs to use it, Kristin reports it can take Helen 1-2 hours to get dressed, but she does do it herself. Prior Functional Status Baseline Function- ADL's Independent Baseline Function- Mobility Independent Current Functional Impairments (Reported) Functional Limitations- ADL's extended time needed for dressing, no longer cooking, driving. Personal Factors Other Personal Factors That May Effect Helen reports R hip pain with Therapy/Recovery walking PT-OP-C Subjective Start: 02/11/22 08:27 Freq: Status: Active Protocol: Document 03/03/22 12:58 AW (Rec: 03/03/22 13:46 AW [id number]) OP-PT Subjective Patient Comments Patient Comments Pt and daughter arrive with 4WW from [facility]. Pt hasn' t used it much, is not using it at home. PT-OP-E Functional Tests Start: 02/11/22 08:27 Freq: Status: Active Protocol: Document 02/19/22 14:30 AMB (Rec: 02/19/22 15:40 AMB [id number]) Functional Tests 10 Meter Walk Test Distance 7 Device Used none Comments fast =7 seconds, 10= self selected pace Dynamic Gait Index (DGI) Score 6 DGI Impairment Rating 60 to <80% Impaired (Score 5-9 ) PT-OP-G Mobility & Gait Start: 02/11/22 08:27 Freq: Status: Active Protocol: Document 02/19/22 14:30 AMB (Rec: 02/19/22 15:40 AMB [id number]) OP Mobility Evaluation Transfers Sit to Stand heavy verbal and physical cues for sit to stand- pt usually needs Luda or something to pull on at home per daughter, cued WBOS, feet underneath MONSERRAT , nose over toes to encourage forward lean, pt tends to have post LOB OP Gait Assessment Comments Gait Comments Shuffling gait pattern, does tend to catch toes, not currently using AD, needs CGA/ Luda to prevent LOB Stair Climbing Evaluation Evaluation Level of Assist On Stairs Contact Guard Assistance Devices Stair Climbing Assistive Devices Left Railing,Right Railing Comments Stair Climbing Comments CGA can ascend and descend 4 steps with 2 railings with alternating gait pattern, but needs extra time to really feel where she is placing her feet PT-OP-M Strength Start: 02/11/22 08:27 Freq: Status: Active Protocol: Document 02/19/22 14:30 AMB (Rec: 02/19/22 15:40 AMB [id number]) Hip Strength Hip Manual Muscle Testing Right Flexion (L2) 4+ Good+ Abduction 4 Good Adduction 4 Good Comments tested in seated Left Flexion (L2) 4+ Good+ Abduction 4 Good Adduction 4 Good Comments tested in seated Knee Strength Knee Manual Muscle Testing Right Flexion (S2) 5 Normal Extension (L3) 5 Normal Left Flexion (S2) 5 Normal Extension (L3) 5 Normal Ankle/Foot Strength Ankle and Foot Manual Muscle Testing Right Dorsiflexion (L4) 4 Good Plantarflexion (S1) 4 Good Left Dorsiflexion (L4) 4 Good Plantarflexion (S1) 4 Good PT-OP-Q Treatments Start: 02/11/22 08:27 Freq: Status: Active Protocol: Document 03/03/22 12:58 AW (Rec: 03/03/22 13:46 AW [id number]) Therapeutic Exercises Standing Exercises march in place Standing Exercise Name march in place Equipment Used 4WW Comments in preparation for gait; amplitude focus hip extension Standing Exercise Name hip extension Side bilateral Resistance AROM Equipment Used rail for UE support Reps/Minutes 2x10 Comments HEP hip abduction Standing Exercise Name hip abduction Side bilateral Equipment Used rail for UE support Reps/Minutes 2x10 Comments HEP heel lift Standing Exercise Name heel lift Side bilateral Resistance AROM Equipment Used rail for UE support Reps/Minutes 2x15 Comments HEP Therapeutic Activity Therapeutic Activity TUG Name TUG with 4WW Comments - 50 sec (extra time for cues to set and release brakes) 55 sec (extra time for sit to stand) - 40 seconds (improved understanding of task) STS Name Sit to Stand Reps/Minutes 2 x 10 Comments Best performance with hands on thighs (up and down) to encourage anterior weight shift. Gait Training Gait Activity 4WW Description gait with 4WW Device Used 4WW Level of Assistance SBA Surface tile, carpet Distance/Duration 190' x 3 Treatment Focus proximity to walker, safety during transfers Comments Gait with 4WW. Turns with 4WW emphasizing amplitude, foot clearance. PT-OP-T Assessment and Plan Start: 02/11/22 08:27 Freq: Status: Active Protocol: Document 03/03/22 12:58 AW (Rec: 03/03/22 13:46 AW [id number]) Physical Therapy Assessment Goals Two Impairment Sit to stand Short Term Goal (STG) Lanne will stand from a standard height chair using UE support but without posterior LOB. STG Duration 4 weeks Prison Goal (LTG) Helen will stand 5x from a standard height chair in 20 seconds or less. LTG Duration 8 weeks One Impairment Gait Short Term Goal (STG) Helen will improve her DGI score to 12/24 or greater to show reduced risk of falling. STG Duration 4 weeks Cosmetics Supervisor Goal (LTG) Helen will ambulate with an appropriate AD for 6 minutes over smooth terrain without LOB or right hip pain. LTG Duration 8 weeks Assessment Summary Assessment Helen arrives with 4WW today. Focused on gait training with 4WW with emphasis on foot clearance, especially in turns . TUG was good mass practice for all skills but pt continues to require cues for brakes management with 4WW. Pt has freezing-like episodes during gait requiring cues to stop, reset, and take a big step. As pt was leaving, daughter indicated pt is struggling with bed mobility. Plan to assess next treatment. Physical Therapy Plan Frequency and Duration Frequency of Treatment 2x/Week Duration of Treatment 8 weeks Plan of Care Start Date 02/19/22 Plan of Care End Date 04/20/22 Therapeutic Interventions Therapeutic Interventions Balance Training,Gait Training ,Joint Mobilizations,Manual Therapy,Neuromuscular Re- education,Self-Care/Home Management,Therapeutic Activities,Therapeutic Exercises Modalities Cold Pack/Ice Massage,Electric Stimulation,Hot Packs Next Visit Focus/Plan Next Note Type Treatment Note Next Visit Plan Bed mobility. Continue gait training with 4WW. Investigate freezing triggers and review steps to address FOG. Review HEP.
--- NOTE | 2022-03-05 13:49 | PT.OTN ---
Current Diagnoses Unsteadiness on feet (03/05/22) Other abnormalities of gait and mobility (03/05/22) Other symptoms and signs involving cognitive functions and awareness (03/05/22) History of falling (03/05/22) Physical Therapy Treatment Note PT-OP-A Visit Information Start: 02/11/22 08:27 Freq: Status: Active Protocol: Document 03/05/22 12:20 AW (Rec: 03/05/22 13:49 AW [id number]) Out-Patient Physical Therapy Visit Information Visit Information Visit Type Treatment Note Visit Start Time 13:00 Visit Stop Time 13:41 Total Visit Minutes 41 Visit Number 5 Number of SUPERVISOR OF COMMUNICATIONS Visits 0 Evaluation Information Evaluation Date 02/12/22 PT-OP-B Current Condition Start: 02/11/22 08:27 Freq: Status: Active Protocol: Document 02/19/22 13:44 AMB (Rec: 02/19/22 14:49 AMB [id number]) Current Condition History of Current Condition Onset Date November 2021 Current Complaints Multiple falls, difficulty with overall mobility History of Current Condition Helen (ginny Alexander with an L): attends without AD, but is guarded closely by her daughter Kristin and needs assistance with pathfinding. Neurology on 01/28/22 for memory loss. Pt has gait instability , depression, anxiety, neck pain, insomnia (without REM disorder), BUE tremors. MOCA score of 12/30. Began trial of sinemet. Recommendation for hearing aids. History of tinnitus. Neuropsych in December suggested possible Lewy body dementia Daughter, Kristin lives with pt, pays bills, manages appointments, and cooks. Spouse in 2019 from glioblastoma - increased depression. Likes to sew and do puzzles but has not engaged lately. Kristin is no longer working outside the home due to taking care of her mom, she is concerned about her mom's large 4 year old dog being a balance hazard. Recent falls (daughter reports at least 5 in the last 6 months). Increased functional decline and memory loss. No longer walking dog. Daughter is concerned about sit to stand and then when prompted is also concerned about floor transfer, bed mobility, appropriate assistive device. No stairs in home, but 3 stairs to enter without railings. Does have a shower stool, but pt doesn't think she needs to use it, Kristin reports it can take Helen 1-2 hours to get dressed, but she does do it herself. Prior Functional Status Baseline Function- ADL's Independent Baseline Function- Mobility Independent Current Functional Impairments (Reported) Functional Limitations- ADL's extended time needed for dressing, no longer cooking, driving. Personal Factors Other Personal Factors That May Effect Helen reports R hip pain with Therapy/Recovery walking PT-OP-C Subjective Start: 02/11/22 08:27 Freq: Status: Active Protocol: Document 03/05/22 12:20 AW (Rec: 03/05/22 13:49 AW [id number]) OP-PT Subjective Patient Comments Patient Comments Pt is in a good mood. Daughter notes pt is due for next dose of carbidopa levodopa at 1330 PT-OP-E Functional Tests Start: 02/11/22 08:27 Freq: Status: Active Protocol: Document 02/19/22 14:30 AMB (Rec: 02/19/22 15:40 AMB [id number]) Functional Tests 10 Meter Walk Test Distance 7 Device Used none Comments fast =7 seconds, 10= self selected pace Dynamic Gait Index (DGI) Score 6 DGI Impairment Rating 60 to <80% Impaired (Score 5-9 ) PT-OP-G Mobility & Gait Start: 02/11/22 08:27 Freq: Status: Active Protocol: Document 02/19/22 14:30 AMB (Rec: 02/19/22 15:40 AMB [id number]) OP Mobility Evaluation Transfers Sit to Stand heavy verbal and physical cues for sit to stand- pt usually needs Luda or something to pull on at home per daughter, cued WBOS, feet underneath MONSERRAT , nose over toes to encourage forward lean, pt tends to have post LOB OP Gait Assessment Comments Gait Comments Shuffling gait pattern, does tend to catch toes, not currently using AD, needs CGA/ Luda to prevent LOB Stair Climbing Evaluation Evaluation Level of Assist On Stairs Contact Guard Assistance Devices Stair Climbing Assistive Devices Left Railing,Right Railing Comments Stair Climbing Comments CGA can ascend and descend 4 steps with 2 railings with alternating gait pattern, but needs extra time to really feel where she is placing her feet PT-OP-M Strength Start: 02/11/22 08:27 Freq: Status: Active Protocol: Document 02/19/22 14:30 AMB (Rec: 02/19/22 15:40 AMB [id number]) Hip Strength Hip Manual Muscle Testing Right Flexion (L2) 4+ Good+ Abduction 4 Good Adduction 4 Good Comments tested in seated Left Flexion (L2) 4+ Good+ Abduction 4 Good Adduction 4 Good Comments tested in seated Knee Strength Knee Manual Muscle Testing Right Flexion (S2) 5 Normal Extension (L3) 5 Normal Left Flexion (S2) 5 Normal Extension (L3) 5 Normal Ankle/Foot Strength Ankle and Foot Manual Muscle Testing Right Dorsiflexion (L4) 4 Good Plantarflexion (S1) 4 Good Left Dorsiflexion (L4) 4 Good Plantarflexion (S1) 4 Good PT-OP-Q Treatments Start: 02/11/22 08:27 Freq: Status: Active Protocol: Document 03/05/22 12:20 AW (Rec: 03/05/22 13:49 AW [id number]) Therapeutic Activity Therapeutic Activity bed mobility Name bed mobility Reps/Minutes 12 min Comments in/out SBA, scooting laterally in supine, bridging, hip flexion from extended position EOB, sit to stand, pulling covers on and off Gait Training Gait Activity 4WW Description gait with 4WW Device Used 4WW Level of Assistance SBA Surface tile, carpet Distance/Duration 190' x 3 Treatment Focus proximity to walker, safety during transfers and turns Comments -Laps around gym -Around 3 cones with emphasis on obstacle clearance. 6 laps completed. Pt knocked over 2 or 3 cones most trials but was more successful with 0 or 1 cones knocked down final 2 laps PT-OP-T Assessment and Plan Start: 02/11/22 08:27 Freq: Status: Active Protocol: Document 03/05/22 12:20 AW (Rec: 03/05/22 13:49 AW [id number]) Physical Therapy Assessment Goals Two Impairment Sit to stand Short Term Goal (STG) Helen will stand from a standard height chair using UE support but without posterior LOB. STG Duration 4 weeks Jail Goal (LTG) Helen will stand 5x from a standard height chair in 20 seconds or less. LTG Duration 8 weeks One Impairment Gait Short Term Goal (STG) Helen will improve her DGI score to 12/24 or greater to show reduced risk of falling. STG Duration 4 weeks Preparation Room Worker Goal (LTG) Helen will ambulate with an appropriate AD for 6 minutes over smooth terrain without LOB or right hip pain. LTG Duration 8 weeks Assessment Summary Assessment Helen had a great deal of difficulty with obstacle clearance during gait with 4WW today. Practiced walking around cones with some improvement. Also assessed and practiced bed mobility which was likely easier in clinic than at home due to firmer surface. Physical Therapy Plan Frequency and Duration Frequency of Treatment 2x/Week Duration of Treatment 8 weeks Plan of Care Start Date 02/19/22 Plan of Care End Date 04/20/22 Therapeutic Interventions Therapeutic Interventions Balance Training,Gait Training ,Joint Mobilizations,Manual Therapy,Neuromuscular Re- education,Self-Care/Home Management,Therapeutic Activities,Therapeutic Exercises Modalities Cold Pack/Ice Massage,Electric Stimulation,Hot Packs Next Visit Focus/Plan Next Note Type Treatment Note Next Visit Plan Revisit bed mobility, gait training with 4WW including obstacle clearance. Be aware of FOG episodes and encourage Stop, Stand tall, Step big to reset
--- NOTE | 2022-03-10 11:15 | PT.OTN ---
Current Diagnoses Unsteadiness on feet (03/10/22) Other abnormalities of gait and mobility (03/10/22) Other symptoms and signs involving cognitive functions and awareness (03/10/22) History of falling (03/10/22) Physical Therapy Treatment Note PT-OP-A Visit Information Start: 02/11/22 08:27 Freq: Status: Active Protocol: Document 03/10/22 11:15 NBM (Rec: 03/10/22 22:04 NBM [id number]) Out-Patient Physical Therapy Visit Information Visit Information Visit Type Treatment Note Visit Start Time 10:33 Visit Stop Time 11:15 Total Visit Minutes 42 Visit Number 6 Number of RELAY ASSOCIATE Visits 1 PT-OP-B Current Condition Start: 02/11/22 08:27 Freq: Status: Active Protocol: Document 02/19/22 13:44 AMB (Rec: 02/19/22 14:49 AMB [id number]) Current Condition History of Current Condition Onset Date November 2021 Current Complaints Multiple falls, difficulty with overall mobility History of Current Condition Helen (ginny Alexander with an L): attends without AD, but is guarded closely by her daughter Kristin and needs assistance with pathfinding. Neurology on 01/28/22 for memory loss. Pt has gait instability , depression, anxiety, neck pain, insomnia (without REM disorder), BUE tremors. MOCA score of 12/30. Began trial of sinemet. Recommendation for hearing aids. History of tinnitus. Neuropsych in December suggested possible Lewy body dementia Daughter, Kristin lives with pt, pays bills, manages appointments, and cooks. Spouse in 2019 from glioblastoma - increased depression. Likes to sew and do puzzles but has not engaged lately. Kristin is no longer working outside the home due to taking care of her mom, she is concerned about her mom's large 4 year old dog being a balance hazard. Recent falls (daughter reports at least 5 in the last 6 months). Increased functional decline and memory loss. No longer walking dog. Daughter is concerned about sit to stand and then when prompted is also concerned about floor transfer, bed mobility, appropriate assistive device. No stairs in home, but 3 stairs to enter without railings. Does have a shower stool, but pt doesn't think she needs to use it, Kristin reports it can take Helen 1-2 hours to get dressed, but she does do it herself. Prior Functional Status Baseline Function- ADL's Independent Baseline Function- Mobility Independent Current Functional Impairments (Reported) Functional Limitations- ADL's extended time needed for dressing, no longer cooking, driving. Personal Factors Other Personal Factors That May Effect Helen reports R hip pain with Therapy/Recovery walking PT-OP-C Subjective Start: 02/11/22 08:27 Freq: Status: Active Protocol: Document 03/10/22 11:15 NBM (Rec: 03/10/22 22:04 NBM [id number]) OP-PT Subjective Patient Comments Patient Comments Daughter Kristin reports pt fell in kitchen yesterday but did not witness - no new bruises noted. Pt does not remember fall. Pt reports tenderness in R hip. PT-OP-E Functional Tests Start: 02/11/22 08:27 Freq: Status: Active Protocol: Document 02/19/22 14:30 AMB (Rec: 02/19/22 15:40 AMB [id number]) Functional Tests 10 Meter Walk Test Distance 7 Device Used none Comments fast =7 seconds, 10= self selected pace Dynamic Gait Index (DGI) Score 6 DGI Impairment Rating 60 to <80% Impaired (Score 5-9 ) PT-OP-G Mobility & Gait Start: 02/11/22 08:27 Freq: Status: Active Protocol: Document 02/19/22 14:30 AMB (Rec: 02/19/22 15:40 AMB [id number]) OP Mobility Evaluation Transfers Sit to Stand heavy verbal and physical cues for sit to stand- pt usually needs Luda or something to pull on at home per daughter, cued WBOS, feet underneath MONSERRAT , nose over toes to encourage forward lean, pt tends to have post LOB OP Gait Assessment Comments Gait Comments Shuffling gait pattern, does tend to catch toes, not currently using AD, needs CGA/ Luda to prevent LOB Stair Climbing Evaluation Evaluation Level of Assist On Stairs Contact Guard Assistance Devices Stair Climbing Assistive Devices Left Railing,Right Railing Comments Stair Climbing Comments CGA can ascend and descend 4 steps with 2 railings with alternating gait pattern, but needs extra time to really feel where she is placing her feet PT-OP-M Strength Start: 02/11/22 08:27 Freq: Status: Active Protocol: Document 02/19/22 14:30 AMB (Rec: 02/19/22 15:40 AMB [id number]) Hip Strength Hip Manual Muscle Testing Right Flexion (L2) 4+ Good+ Abduction 4 Good Adduction 4 Good Comments tested in seated Left Flexion (L2) 4+ Good+ Abduction 4 Good Adduction 4 Good Comments tested in seated Knee Strength Knee Manual Muscle Testing Right Flexion (S2) 5 Normal Extension (L3) 5 Normal Left Flexion (S2) 5 Normal Extension (L3) 5 Normal Ankle/Foot Strength Ankle and Foot Manual Muscle Testing Right Dorsiflexion (L4) 4 Good Plantarflexion (S1) 4 Good Left Dorsiflexion (L4) 4 Good Plantarflexion (S1) 4 Good PT-OP-Q Treatments Start: 02/11/22 08:27 Freq: Status: Active Protocol: Document 03/10/22 11:15 NBM (Rec: 03/10/22 22:08 NBM [id number]) Cardio Equipment Recumbent Elliptical ([employer]) Duration (Minutes) 5 Resistance 3 Seat Position 5 seen Other pt increased to 20 rpm with visual green light, unable to [id number] rpm PT-OP-T Assessment and Plan Start: 02/11/22 08:27 Freq: Status: Active Protocol: Document 03/10/22 11:15 NBM (Rec: 03/10/22 22:04 NB [id number]) Physical Therapy Assessment Goals Two Impairment Sit to stand Short Term Goal (STG) Helen will stand from a standard height chair using UE support but without posterior LOB. STG Duration 4 weeks Pneumatic Tester Mechanic Goal (LTG) Helen will stand 5x from a standard height chair in 20 seconds or less. LTG Duration 8 weeks One Impairment Gait Short Term Goal (STG) Helen will improve her DGI score to 12/24 or greater to show reduced risk of falling. STG Duration 4 weeks Group Home Goal (LTG) Helen will ambulate with an appropriate AD for 6 minutes over smooth terrain without LOB or right hip pain. LTG Duration 8 weeks Assessment Summary Assessment Helen is challenged with L foot shuffling when turning with 4WW L>R and shows improvement by end of treatment session. Pt requires cueing with each freezing episode to stop, stand tall, and step big. LE amplitude during gait w/ 4WW improved with cues to step big but fades without cues. Pt requires initial cues to feel chair/bed behind legs before sitting, and demonstrates improved bed mobility with cueing for bridging and implemented log roll technique successfully with cue for reaching with arm to roll. Physical Therapy Plan Next Visit Focus/Plan Next Note Type Treatment Note Next Visit Plan Revisit gait training with 4WW including obstacle clearance. Be aware of FOG episodes and encourage Stop, Stand tall, Step big to reset
--- NOTE | 2022-03-10 11:15 | PT.OTN ---
Current Diagnoses Unsteadiness on feet (03/10/22) Other abnormalities of gait and mobility (03/10/22) Other symptoms and signs involving cognitive functions and awareness (03/10/22) History of falling (03/10/22) Physical Therapy Treatment Note PT-OP-A Visit Information Start: 02/11/22 08:27 Freq: Status: Active Protocol: Document 03/10/22 11:15 NBM (Rec: 03/10/22 22:04 NBM [id number]) Out-Patient Physical Therapy Visit Information Visit Information Visit Type Treatment Note Visit Start Time 10:33 Visit Stop Time 11:15 Total Visit Minutes 42 Visit Number 6 Number of CANNON PINION ADJUSTER Visits 1 PT-OP-B Current Condition Start: 02/11/22 08:27 Freq: Status: Active Protocol: Document 02/19/22 13:44 AMB (Rec: 02/19/22 14:49 AMB [id number]) Current Condition History of Current Condition Onset Date November 2021 Current Complaints Multiple falls, difficulty with overall mobility History of Current Condition Helen (ginny Alexander with an L): attends without AD, but is guarded closely by her daughter Kristin and needs assistance with pathfinding. Neurology on 01/28/22 for memory loss. Pt has gait instability , depression, anxiety, neck pain, insomnia (without REM disorder), BUE tremors. MOCA score of 12/30. Began trial of sinemet. Recommendation for hearing aids. History of tinnitus. Neuropsych in December suggested possible Lewy body dementia Daughter, Kristin lives with pt, pays bills, manages appointments, and cooks. Spouse in 2019 from glioblastoma - increased depression. Likes to sew and do puzzles but has not engaged lately. Kristin is no longer working outside the home due to taking care of her mom, she is concerned about her mom's large 4 year old dog being a balance hazard. Recent falls (daughter reports at least 5 in the last 6 months). Increased functional decline and memory loss. No longer walking dog. Daughter is concerned about sit to stand and then when prompted is also concerned about floor transfer, bed mobility, appropriate assistive device. No stairs in home, but 3 stairs to enter without railings. Does have a shower stool, but pt doesn't think she needs to use it, Kristin reports it can take Helen 1-2 hours to get dressed, but she does do it herself. Prior Functional Status Baseline Function- ADL's Independent Baseline Function- Mobility Independent Current Functional Impairments (Reported) Functional Limitations- ADL's extended time needed for dressing, no longer cooking, driving. Personal Factors Other Personal Factors That May Effect Helen reports R hip pain with Therapy/Recovery walking PT-OP-C Subjective Start: 02/11/22 08:27 Freq: Status: Active Protocol: Document 03/10/22 11:15 NBM (Rec: 03/10/22 22:04 NBM [id number]) OP-PT Subjective Patient Comments Patient Comments Daughter Kristin reports pt fell in kitchen yesterday but did not witness - no new bruises noted. Pt does not remember fall. Pt reports tenderness in R hip. PT-OP-E Functional Tests Start: 02/11/22 08:27 Freq: Status: Active Protocol: Document 02/19/22 14:30 AMB (Rec: 02/19/22 15:40 AMB [id number]) Functional Tests 10 Meter Walk Test Distance 7 Device Used none Comments fast =7 seconds, 10= self selected pace Dynamic Gait Index (DGI) Score 6 DGI Impairment Rating 60 to <80% Impaired (Score 5-9 ) PT-OP-G Mobility & Gait Start: 02/11/22 08:27 Freq: Status: Active Protocol: Document 02/19/22 14:30 AMB (Rec: 02/19/22 15:40 AMB [id number]) OP Mobility Evaluation Transfers Sit to Stand heavy verbal and physical cues for sit to stand- pt usually needs Luda or something to pull on at home per daughter, cued WBOS, feet underneath MONSERRAT , nose over toes to encourage forward lean, pt tends to have post LOB OP Gait Assessment Comments Gait Comments Shuffling gait pattern, does tend to catch toes, not currently using AD, needs CGA/ Luda to prevent LOB Stair Climbing Evaluation Evaluation Level of Assist On Stairs Contact Guard Assistance Devices Stair Climbing Assistive Devices Left Railing,Right Railing Comments Stair Climbing Comments CGA can ascend and descend 4 steps with 2 railings with alternating gait pattern, but needs extra time to really feel where she is placing her feet PT-OP-M Strength Start: 02/11/22 08:27 Freq: Status: Active Protocol: Document 02/19/22 14:30 AMB (Rec: 02/19/22 15:40 AMB [id number]) Hip Strength Hip Manual Muscle Testing Right Flexion (L2) 4+ Good+ Abduction 4 Good Adduction 4 Good Comments tested in seated Left Flexion (L2) 4+ Good+ Abduction 4 Good Adduction 4 Good Comments tested in seated Knee Strength Knee Manual Muscle Testing Right Flexion (S2) 5 Normal Extension (L3) 5 Normal Left Flexion (S2) 5 Normal Extension (L3) 5 Normal Ankle/Foot Strength Ankle and Foot Manual Muscle Testing Right Dorsiflexion (L4) 4 Good Plantarflexion (S1) 4 Good Left Dorsiflexion (L4) 4 Good Plantarflexion (S1) 4 Good PT-OP-Q Treatments Start: 02/11/22 08:27 Freq: Status: Active Protocol: Document 03/10/22 11:15 MUNIRA (Rec: 03/10/22 22:04 [facility] [id number]) Therapeutic Activity Therapeutic Activity bed mobility Name bed mobility Reps/Minutes 12 min Comments in/out SBA, scooting laterally in supine, bridging, hip flexion from extended position EOB, sit to stand, pulling covers on and off Gait Training Gait Activity 4WW Description gait with 4WW Device Used 4WW Level of Assistance SBA Surface tile, carpet Distance/Duration 190' x 3 Treatment Focus FOG, start/stop, proximity to walker, safety during transfers and turns Comments -Laps around gym -Around 3 cones with emphasis on obstacle clearance. - not done today 03/10/22 PT-OP-T Assessment and Plan Start: 02/11/22 08:27 Freq: Status: Active Protocol: Document 03/10/22 11:15 MUNIRA (Rec: 03/10/22 22:04 [facility] [id number]) Physical Therapy Assessment Goals Two Impairment Sit to stand Short Term Goal (STG) Helen will stand from a standard height chair using UE support but without posterior LOB. STG Duration 4 weeks Snf Goal (LTG) Helen will stand 5x from a standard height chair in 20 seconds or less. LTG Duration 8 weeks One Impairment Gait Short Term Goal (STG) Helen will improve her DGI score to 12/24 or greater to show reduced risk of falling. STG Duration 4 weeks Snf Goal (LTG) Helen will ambulate with an appropriate AD for 6 minutes over smooth terrain without LOB or right hip pain. LTG Duration 8 weeks Assessment Summary Assessment Helen is challenged with L foot shuffling when turning with 4WW L>R and shows improvement by end of treatment session. Pt requires cueing with each freezing episode to stop, stand tall, and step big. LE amplitude during gait w/ 4WW improved with cues to step big but fades without cues. Pt requires initial cues to feel chair/bed behind legs before sitting, and demonstrates improved bed mobility with cueing for bridging and implemented log roll technique successfully with cue for reaching with arm to roll. Physical Therapy Plan Next Visit Focus/Plan Next Note Type Treatment Note Next Visit Plan Revisit gait training with 4WW including obstacle clearance. Be aware of FOG episodes and encourage Stop, Stand tall, Step big to reset
--- NOTE | 2022-03-12 13:12 | PT.OTN ---
Current Diagnoses Unsteadiness on feet (03/12/22) Other abnormalities of gait and mobility (03/12/22) Other symptoms and signs involving cognitive functions and awareness (03/12/22) History of falling (03/12/22) Physical Therapy Treatment Note PT-OP-A Visit Information Start: 02/11/22 08:27 Freq: Status: Active Protocol: Document 03/12/22 08:59 AW (Rec: 03/12/22 11:19 AW [id number]) Out-Patient Physical Therapy Visit Information Visit Information Visit Type Treatment Note Visit Start Time 10:30 Visit Stop Time 11:11 Total Visit Minutes 41 Visit Number 7 Number of NANNY CAREGIVER Visits 0 Evaluation Information Evaluation Date 02/12/22 PT-OP-B Current Condition Start: 02/11/22 08:27 Freq: Status: Active Protocol: Document 02/19/22 13:44 AMB (Rec: 02/19/22 14:49 AMB [id number]) Current Condition History of Current Condition Onset Date November 2021 Current Complaints Multiple falls, difficulty with overall mobility History of Current Condition Helen (ginny Alexander with an L): attends without AD, but is guarded closely by her daughter Kristin and needs assistance with pathfinding. Neurology on 01/28/22 for memory loss. Pt has gait instability , depression, anxiety, neck pain, insomnia (without REM disorder), BUE tremors. MOCA score of 12/30. Began trial of sinemet. Recommendation for hearing aids. History of tinnitus. Neuropsych in December suggested possible Lewy body dementia Daughter, Kristin lives with pt, pays bills, manages appointments, and cooks. Spouse in 2019 from glioblastoma - increased depression. Likes to sew and do puzzles but has not engaged lately. Kristin is no longer working outside the home due to taking care of her mom, she is concerned about her mom's large 4 year old dog being a balance hazard. Recent falls (daughter reports at least 5 in the last 6 months). Increased functional decline and memory loss. No longer walking dog. Daughter is concerned about sit to stand and then when prompted is also concerned about floor transfer, bed mobility, appropriate assistive device. No stairs in home, but 3 stairs to enter without railings. Does have a shower stool, but pt doesn't think she needs to use it, Kristin reports it can take Helen 1-2 hours to get dressed, but she does do it herself. Prior Functional Status Baseline Function- ADL's Independent Baseline Function- Mobility Independent Current Functional Impairments (Reported) Functional Limitations- ADL's extended time needed for dressing, no longer cooking, driving. Personal Factors Other Personal Factors That May Effect Helen reports R hip pain with Therapy/Recovery walking PT-OP-C Subjective Start: 02/11/22 08:27 Freq: Status: Active Protocol: Document 03/12/22 08:59 AW (Rec: 03/12/22 11:19 AW [id number]) OP-PT Subjective Patient Comments Patient Comments Pt is using 4WW more at home. Last dose of sinemet was at 0900 today. PT-OP-E Functional Tests Start: 02/11/22 08:27 Freq: Status: Active Protocol: Document 02/19/22 14:30 AMB (Rec: 02/19/22 15:40 AMB [id number]) Functional Tests 10 Meter Walk Test Distance 7 Device Used none Comments fast =7 seconds, 10= self selected pace Dynamic Gait Index (DGI) Score 6 DGI Impairment Rating 60 to <80% Impaired (Score 5-9 ) PT-OP-G Mobility & Gait Start: 02/11/22 08:27 Freq: Status: Active Protocol: Document 02/19/22 14:30 AMB (Rec: 02/19/22 15:40 AMB [id number]) OP Mobility Evaluation Transfers Sit to Stand heavy verbal and physical cues for sit to stand- pt usually needs Luda or something to pull on at home per daughter, cued WBOS, feet underneath MONSERRAT , nose over toes to encourage forward lean, pt tends to have post LOB OP Gait Assessment Comments Gait Comments Shuffling gait pattern, does tend to catch toes, not currently using AD, needs CGA/ Luda to prevent LOB Stair Climbing Evaluation Evaluation Level of Assist On Stairs Contact Guard Assistance Devices Stair Climbing Assistive Devices Left Railing,Right Railing Comments Stair Climbing Comments CGA can ascend and descend 4 steps with 2 railings with alternating gait pattern, but needs extra time to really feel where she is placing her feet PT-OP-M Strength Start: 02/11/22 08:27 Freq: Status: Active Protocol: Document 02/19/22 14:30 AMB (Rec: 02/19/22 15:40 AMB [id number]) Hip Strength Hip Manual Muscle Testing Right Flexion (L2) 4+ Good+ Abduction 4 Good Adduction 4 Good Comments tested in seated Left Flexion (L2) 4+ Good+ Abduction 4 Good Adduction 4 Good Comments tested in seated Knee Strength Knee Manual Muscle Testing Right Flexion (S2) 5 Normal Extension (L3) 5 Normal Left Flexion (S2) 5 Normal Extension (L3) 5 Normal Ankle/Foot Strength Ankle and Foot Manual Muscle Testing Right Dorsiflexion (L4) 4 Good Plantarflexion (S1) 4 Good Left Dorsiflexion (L4) 4 Good Plantarflexion (S1) 4 Good PT-OP-Q Treatments Start: 02/11/22 08:27 Freq: Status: Active Protocol: Document 03/12/22 08:59 AW (Rec: 03/12/22 11:19 AW [id number]) Cardio Equipment Recumbent Elliptical (BiodClick[employer] KIDS) Duration (Minutes) 5 Resistance 3 Seat Position 5 seen Other used metronome set at 60 bpm but with only slight improvement Therapeutic Activity Therapeutic Activity floor recovery Name floor recovery Comments down to blue tumbling mat in quadruped > roll to side > up in quadruped > hands on chair > one foot forward > push up to standing. Max cues and CGA for all except up to standing which required min/mod A. bed mobility Name bed mobility Comments in/out SBA, scooting laterally in supine, bridging, hip flexion from extended position EOB, sit to stand, pulling covers on and off, log roll Gait Training Gait Activity 4WW Description gait with 4WW Device Used 4WW Level of Assistance SBA Surface tile, carpet Distance/Duration 190' x 3 Treatment Focus FOG, start/stop, proximity to walker, safety during transfers and turns Comments -Laps around gym with emphasis on practicing STOPS on cue ( stop, stand tall, reset for big step) -Around 3 cones with emphasis on obstacle clearance. Performance improved today to knocking down only one cone out of six. PT-OP-T Assessment and Plan Start: 02/11/22 08:27 Freq: Status: Active Protocol: Document 03/12/22 08:59 AW (Rec: 03/12/22 11:19 AW [id number]) Physical Therapy Assessment Goals Two Impairment Sit to stand Short Term Goal (STG) Helen will stand from a standard height chair using UE support but without posterior LOB. STG Duration 4 weeks Mcc Goal (LTG) Helen will stand 5x from a standard height chair in 20 seconds or less. LTG Duration 8 weeks One Impairment Gait Short Term Goal (STG) Helen will improve her DGI score to 12/24 or greater to show reduced risk of falling. STG Duration 4 weeks Mcc Goal (LTG) Helen will ambulate with an appropriate AD for 6 minutes over smooth terrain without LOB or right hip pain. LTG Duration 8 weeks Assessment Summary Assessment Helen has difficulty stopping during gait, particularly once she starts with festinating pattern. Will continue to practice stops, turns, and obstacle clearance with 4WW. Physical Therapy Plan Frequency and Duration Frequency of Treatment 2x/Week Duration of Treatment 8 weeks Plan of Care Start Date 02/19/22 Plan of Care End Date 04/20/22 Therapeutic Interventions Therapeutic Interventions Balance Training,Gait Training ,Joint Mobilizations,Manual Therapy,Neuromuscular Re- education,Self-Care/Home Management,Therapeutic Activities,Therapeutic Exercises Modalities Cold Pack/Ice Massage,Electric Stimulation,Hot Packs Next Visit Focus/Plan Next Note Type Treatment Note Next Visit Plan Gait training with 4WW including obstacle clearance. Practice stopping on cue. Be aware of FOG episodes and encourage Stop, Stand tall, Step big to reset
--- NOTE | 2022-03-17 11:20 | PT.OTN ---
Current Diagnoses Unsteadiness on feet (03/19/22) Other abnormalities of gait and mobility (03/19/22) Other symptoms and signs involving cognitive functions and awareness (03/19/22) History of falling (03/19/22) Physical Therapy Treatment Note PT-OP-A Visit Information Start: 02/11/22 08:27 Freq: Status: Active Protocol: Document 03/19/22 08:53 AW (Rec: 03/19/22 12:18 AW [id number]) Out-Patient Physical Therapy Visit Information Visit Information Visit Type Progress Note Visit Start Time 10:30 Visit Stop Time 11:15 Total Visit Minutes 45 Visit Number 9 PT-OP-B Current Condition Start: 02/11/22 08:27 Freq: Status: Active Protocol: Document 02/19/22 13:44 AMB (Rec: 02/19/22 14:49 AMB [id number]) Current Condition History of Current Condition Onset Date November 2021 Current Complaints Multiple falls, difficulty with overall mobility History of Current Condition Helen (ginny Alexander with an L): attends without AD, but is guarded closely by her daughter Kristin and needs assistance with pathfinding. Neurology on 01/28/22 for memory loss. Pt has gait instability , depression, anxiety, neck pain, insomnia (without REM disorder), BUE tremors. MOCA score of 08/21. Began trial of sinemet. Recommendation for hearing aids. History of tinnitus. Neuropsych in December suggested possible Lewy body dementia Daughter, Kristin lives with pt, pays bills, manages appointments, and cooks. Spouse in 2019 from glioblastoma - increased depression. Likes to sew and do puzzles but has not engaged lately. Kristin is no longer working outside the home due to taking care of her mom, she is concerned about her mom's large 4 year old dog being a balance hazard. Recent falls (daughter reports at least 5 in the last 6 months). Increased functional decline and memory loss. No longer walking dog. Daughter is concerned about sit to stand and then when prompted is also concerned about floor transfer, bed mobility, appropriate assistive device. No stairs in home, but 3 stairs to enter without railings. Does have a shower stool, but pt doesn't think she needs to use it, Krisitn reports it can take Helen 1-2 hours to get dressed, but she does do it herself. Prior Functional Status Baseline Function- ADL's Independent Baseline Function- Mobility Independent Current Functional Impairments (Reported) Functional Limitations- ADL's extended time needed for dressing, no longer cooking, driving. Personal Factors Other Personal Factors That May Effect Helen reports R hip pain with Therapy/Recovery walking PT-OP-C Subjective Start: 02/11/22 08:27 Freq: Status: Active Protocol: Document 03/19/22 08:53 AW (Rec: 03/19/22 12:18 AW [id number]) OP-PT Subjective Patient Comments Patient Comments Having some nausea, possibly due to donepezil. Daughter has cut dose in half for now. Pt just had her sinemet 20 minutes ago. PT-OP-E Functional Tests Start: 02/11/22 08:27 Freq: Status: Active Protocol: Document 02/19/22 14:30 AMB (Rec: 02/19/22 15:40 AMB [id number]) Functional Tests 10 Meter Walk Test Distance 7 Device Used none Comments fast =7 seconds, 10= self selected pace Dynamic Gait Index (DGI) Score 6 DGI Impairment Rating 60 to <80% Impaired (Score 5-9 ) PT-OP-G Mobility & Gait Start: 02/11/22 08:27 Freq: Status: Active Protocol: Document 02/19/22 14:30 AMB (Rec: 02/19/22 15:40 AMB [id number]) OP Mobility Evaluation Transfers Sit to Stand heavy verbal and physical cues for sit to stand- pt usually needs Jennifer or something to pull on at home per daughter, cued WBOS, feet underneath MONSERRAT , nose over toes to encourage forward lean, pt tends to have post LOB OP Gait Assessment Comments Gait Comments Shuffling gait pattern, does tend to catch toes, not currently using AD, needs CGA/ Jennifer to prevent LOB Stair Climbing Evaluation Evaluation Level of Assist On Stairs Contact Guard Assistance Devices Stair Climbing Assistive Devices Left Railing,Right Railing Comments Stair Climbing Comments CGA can ascend and descend 4 steps with 2 railings with alternating gait pattern, but needs extra time to really feel where she is placing her feet PT-OP-M Strength Start: 02/11/22 08:27 Freq: Status: Active Protocol: Document 02/19/22 14:30 AMB (Rec: 02/19/22 15:40 AMB [id number]) Hip Strength Hip Manual Muscle Testing Right Flexion (L2) 4+ Good+ Abduction 4 Good Adduction 4 Good Comments tested in seated Left Flexion (L2) 4+ Good+ Abduction 4 Good Adduction 4 Good Comments tested in seated Knee Strength Knee Manual Muscle Testing Right Flexion (S2) 5 Normal Extension (L3) 5 Normal Left Flexion (S2) 5 Normal Extension (L3) 5 Normal Ankle/Foot Strength Ankle and Foot Manual Muscle Testing Right Dorsiflexion (L4) 4 Good Plantarflexion (S1) 4 Good Left Dorsiflexion (L4) 4 Good Plantarflexion (S1) 4 Good PT-OP-Q Treatments Start: 02/11/22 08:27 Freq: Status: Active Protocol: Document 03/19/22 08:53 AW (Rec: 03/19/22 12:18 AW [id number]) Therapeutic Activity Therapeutic Activity transfers Name transfers Comments Up from chair, use 4WW to ambulate 10 feet to second chair set up in random orientation, sit. Placed post-its on 4WW seat: LOCK BRAKES LET GO HANDS ON LAP. PT able to fade cues to read your notes and pt was successful in following steps 50% of trials. STS Name Sit to Stand Reps/Minutes 3 x 5 reps Comments Best performance with hands on thighs (up and down) to encourage anterior weight shift. 16 sec and 18 sec recorded for 5XSTS. Gait Training Gait Activity hurdles Description hurdles Device Used none Level of Assistance Jennifer/CGA>SBA Treatment Focus amplitude, foot clearance, stability Comments Pt navigated 3 hurdles forward with CGA initially faded to SBA. She made toe contact with one cabrera on first lap and needed min A to recover balance. Improved with repetition. DGI Description DGI Device Used none Level of Assistance close SBA Comments 08/15. See copy scanned to EMR . 4WW Description gait with 4WW Device Used 4WW Level of Assistance SBA Surface tile, carpet Distance/Duration 190' x 2 Treatment Focus proximity to walker, safety during transfers and turns Comments -Laps around gym with emphasis on practicing STOPS on cue ( stop, stand tall, reset for big step) -Around 4 cones with emphasis on obstacle clearance. Performance improved today to knocking down only one cone out of 4. - Turns: Pt practiced turning with bigger steps, no shuffling. PT-OP-T Assessment and Plan Start: 02/11/22 08:27 Freq: Status: Active Protocol: Document 03/19/22 08:53 AW (Rec: 03/19/22 12:18 AW [id number]) Physical Therapy Assessment Goals Two Impairment Sit to stand Short Term Goal (STG) Helen will stand from a standard height chair using UE support but without posterior LOB. 03/19/22 - Pt able to stand without UE support but does better with hands on lap. No LOB on single trials. Inconsistent with multiple trials with posterior LOB ~30% of trials. STG Duration 4 weeks Shirt Trimmer Goal (LTG) Helen will stand 5x from a standard height chair in 20 seconds or less. 03/19/22 - Pt able to stand 5 times with min support hands on lap in 18 or 16 seconds but has posterior LOB on three reps, lands hard. LTG Duration 8 weeks One Impairment Gait Short Term Goal (STG) Helen will improve her DGI score to 12/24 or greater to show reduced risk of falling. 03/19/22 - GOAL MET 12/24. STG Duration 4 weeks Shirt Trimmer Goal (LTG) Helen will ambulate with an appropriate AD for 6 minutes over smooth terrain without LOB or right hip pain. LTG Duration 8 weeks Progress Towards Goals Progress Towards Goals Progressing Toward Goals,Slow Progress - Other Progress Comments Helen has improved her DGI score to 12/24. She continues to have difficulty standing from a chair without significant retropulsion but improves with cues and attention. She should benefit from continued PT to reinforce safe gait and transfers. PT will continue to work with [employer] to improve attention and to provide appropriate external cues for safety. Assessment Summary Assessment Helen was seen within 30 minutes of her last dose of sinemet today which seems to have improved her motor performance and attention. PT placed post-it notes on seat of 4WW with cues to lock brakes, let go of walker, and place hands on lap to sit. Pt was successful using signs ~50 % of the time which is an improvement over needing max cues with every transfer. Navigation and obstacle avoidance with 4WW were improved today. Physical Therapy Plan Frequency and Duration Frequency of Treatment 2x/Week Duration of Treatment 8 weeks Plan of Care Start Date 02/19/22 Plan of Care End Date 04/20/22 Therapeutic Interventions Therapeutic Interventions Balance Training,Gait Training ,Joint Mobilizations,Manual Therapy,Neuromuscular Re- education,Self-Care/Home Management,Therapeutic Activities,Therapeutic Exercises Modalities Cold Pack/Ice Massage,Electric Stimulation,Hot Packs Next Visit Focus/Plan Next Note Type Treatment Note Next Visit Plan POC: Gait training with 4WW including obstacle clearance. Practice stopping on cue. Daughter would like to revisit floor recover. Consider balance or other exercise in tall kneeling or half kneeling .
--- NOTE | 2022-03-19 12:21 | PT.OTN ---
Current Diagnoses Unsteadiness on feet (03/19/22) Other abnormalities of gait and mobility (03/19/22) Other symptoms and signs involving cognitive functions and awareness (03/19/22) History of falling (03/19/22) Physical Therapy Treatment Note PT-OP-A Visit Information Start: 02/11/22 08:27 Freq: Status: Active Protocol: Document 03/19/22 08:53 AW (Rec: 03/19/22 12:18 AW [id number]) Out-Patient Physical Therapy Visit Information Visit Information Visit Type Progress Note Visit Start Time 10:30 Visit Stop Time 11:15 Total Visit Minutes 45 Visit Number 9 PT-OP-B Current Condition Start: 02/11/22 08:27 Freq: Status: Active Protocol: Document 02/19/22 13:44 AMB (Rec: 02/19/22 14:49 AMB [id number]) Current Condition History of Current Condition Onset Date November 2021 Current Complaints Multiple falls, difficulty with overall mobility History of Current Condition Helen (ginny Alexander with an L): attends without AD, but is guarded closely by her daughter Kristin and needs assistance with pathfinding. Neurology on 01/28/22 for memory loss. Pt has gait instability , depression, anxiety, neck pain, insomnia (without REM disorder), BUE tremors. MOCA score of 08/21. Began trial of sinemet. Recommendation for hearing aids. History of tinnitus. Neuropsych in December suggested possible Lewy body dementia Daughter, Kristin lives with pt, pays bills, manages appointments, and cooks. Spouse in 2019 from glioblastoma - increased depression. Likes to sew and do puzzles but has not engaged lately. Kristin is no longer working outside the home due to taking care of her mom, she is concerned about her mom's large 4 year old dog being a balance hazard. Recent falls (daughter reports at least 5 in the last 6 months). Increased functional decline and memory loss. No longer walking dog. Daughter is concerned about sit to stand and then when prompted is also concerned about floor transfer, bed mobility, appropriate assistive device. No stairs in home, but 3 stairs to enter without railings. Does have a shower stool, but pt doesn't think she needs to use it, Kristin reports it can take Helen 1-2 hours to get dressed, but she does do it herself. Prior Functional Status Baseline Function- ADL's Independent Baseline Function- Mobility Independent Current Functional Impairments (Reported) Functional Limitations- ADL's extended time needed for dressing, no longer cooking, driving. Personal Factors Other Personal Factors That May Effect Helen reports R hip pain with Therapy/Recovery walking PT-OP-C Subjective Start: 02/11/22 08:27 Freq: Status: Active Protocol: Document 03/19/22 08:53 AW (Rec: 03/19/22 12:18 AW [id number]) OP-PT Subjective Patient Comments Patient Comments Having some nausea, possibly due to donepezil. Daughter has cut dose in half for now. Pt just had her sinemet 20 minutes ago. PT-OP-E Functional Tests Start: 02/11/22 08:27 Freq: Status: Active Protocol: Document 02/19/22 14:30 AMB (Rec: 02/19/22 15:40 AMB [id number]) Functional Tests 10 Meter Walk Test Distance 7 Device Used none Comments fast =7 seconds, 10= self selected pace Dynamic Gait Index (DGI) Score 6 DGI Impairment Rating 60 to <80% Impaired (Score 5-9 ) PT-OP-G Mobility & Gait Start: 02/11/22 08:27 Freq: Status: Active Protocol: Document 02/19/22 14:30 AMB (Rec: 02/19/22 15:40 AMB [id number]) OP Mobility Evaluation Transfers Sit to Stand heavy verbal and physical cues for sit to stand- pt usually needs Jennifer or something to pull on at home per daughter, cued WBOS, feet underneath MONSERRAT , nose over toes to encourage forward lean, pt tends to have post LOB OP Gait Assessment Comments Gait Comments Shuffling gait pattern, does tend to catch toes, not currently using AD, needs CGA/ Jennifer to prevent LOB Stair Climbing Evaluation Evaluation Level of Assist On Stairs Contact Guard Assistance Devices Stair Climbing Assistive Devices Left Railing,Right Railing Comments Stair Climbing Comments CGA can ascend and descend 4 steps with 2 railings with alternating gait pattern, but needs extra time to really feel where she is placing her feet PT-OP-M Strength Start: 02/11/22 08:27 Freq: Status: Active Protocol: Document 02/19/22 14:30 AMB (Rec: 02/19/22 15:40 AMB [id number]) Hip Strength Hip Manual Muscle Testing Right Flexion (L2) 4+ Good+ Abduction 4 Good Adduction 4 Good Comments tested in seated Left Flexion (L2) 4+ Good+ Abduction 4 Good Adduction 4 Good Comments tested in seated Knee Strength Knee Manual Muscle Testing Right Flexion (S2) 5 Normal Extension (L3) 5 Normal Left Flexion (S2) 5 Normal Extension (L3) 5 Normal Ankle/Foot Strength Ankle and Foot Manual Muscle Testing Right Dorsiflexion (L4) 4 Good Plantarflexion (S1) 4 Good Left Dorsiflexion (L4) 4 Good Plantarflexion (S1) 4 Good PT-OP-Q Treatments Start: 02/11/22 08:27 Freq: Status: Active Protocol: Document 03/19/22 08:53 AW (Rec: 03/19/22 12:18 AW [id number]) Therapeutic Activity Therapeutic Activity transfers Name transfers Comments Up from chair, use 4WW to ambulate 10 feet to second chair set up in random orientation, sit. Placed post-its on 4WW seat: LOCK BRAKES LET GO HANDS ON LAP. PT able to fade cues to read your notes and pt was successful in following steps 50% of trials. STS Name Sit to Stand Reps/Minutes 3 x 5 reps Comments Best performance with hands on thighs (up and down) to encourage anterior weight shift. 16 sec and 18 sec recorded for 5XSTS. Gait Training Gait Activity hurdles Description hurdles Device Used none Level of Assistance Jennifer/CGA>SBA Treatment Focus amplitude, foot clearance, stability Comments Pt navigated 3 hurdles forward with CGA initially faded to SBA. She made toe contact with one cabrera on first lap and needed min A to recover balance. Improved with repetition. DGI Description DGI Device Used none Level of Assistance close SBA Comments 08/15. See copy scanned to EMR . 4WW Description gait with 4WW Device Used 4WW Level of Assistance SBA Surface tile, carpet Distance/Duration 190' x 2 Treatment Focus proximity to walker, safety during transfers and turns Comments -Laps around gym with emphasis on practicing STOPS on cue ( stop, stand tall, reset for big step) -Around 4 cones with emphasis on obstacle clearance. Performance improved today to knocking down only one cone out of 4. - Turns: Pt practiced turning with bigger steps, no shuffling. PT-OP-T Assessment and Plan Start: 02/11/22 08:27 Freq: Status: Active Protocol: Document 03/19/22 08:53 AW (Rec: 03/19/22 12:18 AW [id number]) Physical Therapy Assessment Goals Two Impairment Sit to stand Short Term Goal (STG) Helen will stand from a standard height chair using UE support but without posterior LOB. 03/19/22 - Pt able to stand without UE support but does better with hands on lap. No LOB on single trials. Inconsistent with multiple trials with posterior LOB ~30% of trials. STG Duration 4 weeks Front Of House Manager Goal (LTG) Helen will stand 5x from a standard height chair in 20 seconds or less. 03/19/22 - Pt able to stand 5 times with min support hands on lap in 18 or 16 seconds but has posterior LOB on three reps, lands hard. LTG Duration 8 weeks One Impairment Gait Short Term Goal (STG) Helen will improve her DGI score to 12/24 or greater to show reduced risk of falling. 03/19/22 - GOAL MET 12/24. STG Duration 4 weeks Front Of House Manager Goal (LTG) Helen will ambulate with an appropriate AD for 6 minutes over smooth terrain without LOB or right hip pain. LTG Duration 8 weeks Progress Towards Goals Progress Towards Goals Progressing Toward Goals,Slow Progress - Other Progress Comments Helen has improved her DGI score to 12/24. She continues to have difficulty standing from a chair without significant retropulsion but improves with cues and attention. She should benefit from continued PT to reinforce safe gait and transfers. PT will continue to work with TEACHER ASSISTANT to improve attention and to provide appropriate external cues for safety. Assessment Summary Assessment Helen was seen within 30 minutes of her last dose of sinemet today which seems to have improved her motor performance and attention. PT placed post-it notes on seat of 4WW with cues to lock brakes, let go of walker, and place hands on lap to sit. Pt was successful using signs ~50 % of the time which is an improvement over needing max cues with every transfer. Navigation and obstacle avoidance with 4WW were improved today. Physical Therapy Plan Frequency and Duration Frequency of Treatment 2x/Week Duration of Treatment 8 weeks Plan of Care Start Date 02/19/22 Plan of Care End Date 04/20/22 Therapeutic Interventions Therapeutic Interventions Balance Training,Gait Training ,Joint Mobilizations,Manual Therapy,Neuromuscular Re- education,Self-Care/Home Management,Therapeutic Activities,Therapeutic Exercises Modalities Cold Pack/Ice Massage,Electric Stimulation,Hot Packs Next Visit Focus/Plan Next Note Type Treatment Note Next Visit Plan POC: Gait training with 4WW including obstacle clearance. Practice stopping on cue. Daughter would like to revisit floor recover. Consider balance or other exercise in tall kneeling or half kneeling .
--- NOTE | 2022-03-23 10:35 | PT.OTN ---
Current Diagnoses Unsteadiness on feet (03/23/22) Other abnormalities of gait and mobility (03/23/22) Other symptoms and signs involving cognitive functions and awareness (03/23/22) History of falling (03/23/22) Physical Therapy Treatment Note PT-OP-A Visit Information Start: 02/11/22 08:27 Freq: Status: Active Protocol: Document 03/23/22 09:45 NBM (Rec: 03/30/22 00:29 NB [id number]) Out-Patient Physical Therapy Visit Information Visit Information Visit Type Treatment Note Visit Start Time 09:45 Visit Stop Time 10:30 Total Visit Minutes 45 Visit Number 10 Number of MEDICATION ADMINISTRATION PROFESSIONAL Visits 1 PT-OP-B Current Condition Start: 02/11/22 08:27 Freq: Status: Active Protocol: Document 02/19/22 13:44 AMB (Rec: 02/19/22 14:49 AMB [id number]) Current Condition History of Current Condition Onset Date November 2021 Current Complaints Multiple falls, difficulty with overall mobility History of Current Condition Helen (gniny Alexander with an L): attends without AD, but is guarded closely by her daughter Kristin and needs assistance with pathfinding. Neurology on 01/28/22 for memory loss. Pt has gait instability , depression, anxiety, neck pain, insomnia (without REM disorder), BUE tremors. MOCA score of 12/30. Began trial of sinemet. Recommendation for hearing aids. History of tinnitus. Neuropsych in December suggested possible Lewy body dementia Daughter, Kristin lives with pt, pays bills, manages appointments, and cooks. Spouse in 2019 from glioblastoma - increased depression. Likes to sew and do puzzles but has not engaged lately. Kristin is no longer working outside the home due to taking care of her mom, she is concerned about her mom's large 4 year old dog being a balance hazard. Recent falls (daughter reports at least 5 in the last 6 months). Increased functional decline and memory loss. No longer walking dog. Daughter is concerned about sit to stand and then when prompted is also concerned about floor transfer, bed mobility, appropriate assistive device. No stairs in home, but 3 stairs to enter without railings. Does have a shower stool, but pt doesn't think she needs to use it, Kristin reports it can take Lanne 1-2 hours to get dressed, but she does do it herself. Prior Functional Status Baseline Function- ADL's Independent Baseline Function- Mobility Independent Current Functional Impairments (Reported) Functional Limitations- ADL's extended time needed for dressing, no longer cooking, driving. Personal Factors Other Personal Factors That May Effect Helen reports R hip pain with Therapy/Recovery walking PT-OP-C Subjective Start: 02/11/22 08:27 Freq: Status: Active Protocol: Document 03/23/22 09:45 NBM (Rec: 03/30/22 00:29 [facility] [id number]) OP-PT Subjective Patient Comments Patient Comments Pt arrives w/ 4WW and daughter /caregiver Kristin. Pt reports no nausea; daughter reports donepezil dose halved to reduce side effects. No falls. PT-OP-E Functional Tests Start: 02/11/22 08:27 Freq: Status: Active Protocol: Document 02/19/22 14:30 AMB (Rec: 02/19/22 15:40 AMB [id number]) Functional Tests 10 Meter Walk Test Distance 7 Device Used none Comments fast =7 seconds, 10= self selected pace Dynamic Gait Index (DGI) Score 6 DGI Impairment Rating 60 to <80% Impaired (Score 5-9 ) PT-OP-G Mobility & Gait Start: 02/11/22 08:27 Freq: Status: Active Protocol: Document 02/19/22 14:30 AMB (Rec: 02/19/22 15:40 AMB [id number]) OP Mobility Evaluation Transfers Sit to Stand heavy verbal and physical cues for sit to stand- pt usually needs Luda or something to pull on at home per daughter, cued WBOS, feet underneath MONSERRAT , nose over toes to encourage forward lean, pt tends to have post LOB OP Gait Assessment Comments Gait Comments Shuffling gait pattern, does tend to catch toes, not currently using AD, needs CGA/ Luda to prevent LOB Stair Climbing Evaluation Evaluation Level of Assist On Stairs Contact Guard Assistance Devices Stair Climbing Assistive Devices Left Railing,Right Railing Comments Stair Climbing Comments CGA can ascend and descend 4 steps with 2 railings with alternating gait pattern, but needs extra time to really feel where she is placing her feet PT-OP-M Strength Start: 02/11/22 08:27 Freq: Status: Active Protocol: Document 02/19/22 14:30 AMB (Rec: 02/19/22 15:40 AMB [id number]) Hip Strength Hip Manual Muscle Testing Right Flexion (L2) 4+ Good+ Abduction 4 Good Adduction 4 Good Comments tested in seated Left Flexion (L2) 4+ Good+ Abduction 4 Good Adduction 4 Good Comments tested in seated Knee Strength Knee Manual Muscle Testing Right Flexion (S2) 5 Normal Extension (L3) 5 Normal Left Flexion (S2) 5 Normal Extension (L3) 5 Normal Ankle/Foot Strength Ankle and Foot Manual Muscle Testing Right Dorsiflexion (L4) 4 Good Plantarflexion (S1) 4 Good Left Dorsiflexion (L4) 4 Good Plantarflexion (S1) 4 Good PT-OP-Q Treatments Start: 02/11/22 08:27 Freq: Status: Active Protocol: Document 03/23/22 09:45 NBM (Rec: 03/30/22 00:29 NBM [id number]) Cardio Equipment Recumbent Stepper (Sci-Fit) Duration (Minutes) 5 Resistance 1 Other visual cue to maintain 25-30 rpm, push through heel, use arms Therapeutic Exercises Sitting Exercises Hip abduction Sitting Exercise Name seated clamshell Side bilateral Resistance Lvl 2 Tb Reps/Minutes x10 Comments cues for initial foot placement - added to HEP Standing Exercises Shoulder extension Side bilateral Resistance Lvl 1 Tb Equipment Used Posterior chain strengthening at wall Reps/Minutes x10 Comments initial cues for straight arms rows Standing Exercise Name scapular retraction Resistance Lvl 1 Tb Equipment Used Posterior chain strengthening at wall Reps/Minutes x10 Comments cues for form, elbows at sides october in place Standing Exercise Name march in place Equipment Used 4WW Comments 60 bpm in preparation for gait ; amplitude focus Therapeutic Activity Therapeutic Activity STS Name Sit to Stand Reps/Minutes 4 x 5 reps Comments w/ hands on thighs (up and down) for anterior weight shift. Cues for knee alignment and controlled descent - decreased knee valgus w/ Tb at knees - added to HEP. Gait Training Gait Activity 4WW Description gait with 4WW Device Used 4WW Level of Assistance SBA Surface tile, carpet Distance/Duration 190' x 4 Treatment Focus slower pacing (60 bpm), proximity to walker, posture, turns Comments -Laps around gym with emphasis on practicing STOPS on cue ( stop, stand tall, reset for big step) -Around 4 cones with emphasis on obstacle clearance. Performance improved today to knocking down only one cone out of 4. -not done today - Turns: Pt practiced turning with bigger steps, no shuffling. Self-Care/Home Management Treatment Education Patient Education Home Exercise Program,Safety Other Education Added to HEP: Sit to Stand w/ thigh support and Seated hip abduction w/ Tb - HO given. PT-OP-T Assessment and Plan Start: 02/11/22 08:27 Freq: Status: Active Protocol: Document 03/23/22 09:45 [facility] (Rec: 03/30/22 00:29 [facility] [id number]) Physical Therapy Assessment Impairments Impairments Activity Tolerance,Balance, Functional Activities, Functional Mobility,Gait,Pain, Posture,Strength Goals Two Impairment Sit to stand Short Term Goal (STG) Helen will stand from a standard height chair using UE support but without posterior LOB. 03/19/22 - Pt able to stand without UE support but does better with hands on lap. No LOB on single trials. Inconsistent with multiple trials with posterior LOB ~30% of trials. STG Duration 4 weeks Group Home Goal (LTG) Helen will stand 5x from a standard height chair in 20 seconds or less. 03/19/22 - Pt able to stand 5 times with min support hands on lap in 18 or 16 seconds but has posterior LOB on three reps, lands hard. LTG Duration 8 weeks One Impairment Gait Short Term Goal (STG) Helen will improve her DGI score to 12/24 or greater to show reduced risk of falling. 03/19/22 - GOAL MET 12/24. STG Duration 4 weeks Flat Knitter Goal (LTG) Helen will ambulate with an appropriate AD for 6 minutes over smooth terrain without LOB or right hip pain. LTG Duration 8 weeks Assessment Summary Assessment As pt ambulates w/4WW her pace quickens, she pushes the walker too far out and then leans forward to keep up. Treatment focus today is gait traning w/4WW w/ focus on pacing, amplitude, posture, stops and turns; and LE strengthening. Pt demonstrates improved posture w/4WW after completing UE posterior chain strengthening. Pt requires consistent cues for 4WW proximation and slower pace - pacing and proximation improve w/ metronome at 60 bpm. Pt requires frequent cues for sequencing brakes w/4WW or to refer to notes - pt self- directs appropriately ~50% of the time. Final note to Let go of brakes confuses pt when transferring from chair to 4WW. Added to HEP: Sit to Stand w/ thigh support and Seated hip abduction w/ Tb - HO given. Physical Therapy Plan Frequency and Duration Frequency of Treatment 2x/Week Duration of Treatment 8 weeks Plan of Care Start Date 02/19/22 Plan of Care End Date 04/20/22 Therapeutic Interventions Therapeutic Interventions Balance Training,Gait Training ,Joint Mobilizations,Manual Therapy,Neuromuscular Re- education,Self-Care/Home Management,Therapeutic Activities,Therapeutic Exercises Modalities Cold Pack/Ice Massage,Electric Stimulation,Hot Packs Next Visit Focus/Plan Next Note Type Treatment Note Next Visit Plan POC: Gait training with 4WW including obstacle clearance. Practice stopping on cue. Daughter would like to revisit floor recover. Consider balance or other exercise in tall kneeling or half kneeling .
--- NOTE | 2022-03-31 10:37 | PT.OTN ---
Addendum entered and electronically signed by Daiana Jones PTA 03/31/22 11:54: Pt reported R hip discomfort: initiated Pirfor stretch and ball on wall self massage with good feedback response reported post and less pain end tx. Original Note: Addendum entered and electronically signed by Daiana Jones PTA 03/31/22 11:53: Daughter present and gave feedback to pt during tx with coordination carryover at home. Original Note: Current Diagnoses Unsteadiness on feet (03/31/22) Other abnormalities of gait and mobility (03/31/22) Other symptoms and signs involving cognitive functions and awareness (03/31/22) History of falling (03/31/22) Physical Therapy Treatment Note PT-OP-A Visit Information Start: 02/11/22 08:27 Freq: Status: Active Protocol: Document 03/31/22 09:48 SP (Rec: 03/31/22 10:38 SP [id number]) Out-Patient Physical Therapy Visit Information Visit Information Visit Type Treatment Note Visit Start Time 09:48 Visit Stop Time 10:37 Total Visit Minutes 49 Visit Number 11 Number of SHALE PLANER OPERATOR Visits 2 Evaluation Information Evaluation Date 02/12/22 PT-OP-B Current Condition Start: 02/11/22 08:27 Freq: Status: Active Protocol: Document 02/19/22 13:44 AMB (Rec: 02/19/22 14:49 AMB [id number]) Current Condition History of Current Condition Onset Date November 2021 Current Complaints Multiple falls, difficulty with overall mobility History of Current Condition Helen (pronounced Catherine with an L): attends without AD, but is guarded closely by her daughter Kristin and needs assistance with pathfinding. Neurology on 01/28/22 for memory loss. Pt has gait instability , depression, anxiety, neck pain, insomnia (without REM disorder), BUE tremors. MOCA score of 1230. Began trial of sinemet. Recommendation for hearing aids. History of tinnitus. Neuropsych in December suggested possible Lewy body dementia Daughter, Kristin lives with pt, pays bills, manages appointments, and cooks. Spouse in 2019 from glioblastoma - increased depression. Likes to sew and do puzzles but has not engaged lately. Kristin is no longer working outside the home due to taking care of her mom, she is concerned about her mom's large 4 year old dog being a balance hazard. Recent falls (daughter reports at least 5 in the last 6 months). Increased functional decline and memory loss. No longer walking dog. Daughter is concerned about sit to stand and then when prompted is also concerned about floor transfer, bed mobility, appropriate assistive device. No stairs in home, but 3 stairs to enter without railings. Does have a shower stool, but pt doesn't think she needs to use it, Kristin reports it can take Lanne 1-2 hours to get dressed, but she does do it herself. Prior Functional Status Baseline Function- ADL's Independent Baseline Function- Mobility Independent Current Functional Impairments (Reported) Functional Limitations- ADL's extended time needed for dressing, no longer cooking, driving. Personal Factors Other Personal Factors That May Effect Lanmaribel reports R hip pain with Therapy/Recovery walking PT-OP-C Subjective Start: 02/11/22 08:27 Freq: Status: Active Protocol: Document 03/31/22 09:48 SP (Rec: 03/31/22 10:38 SP [id number]) OP-PT Subjective Patient Comments Patient Comments Pt arrives with 4WW, Daughter/ Delmi with her. Daughter reported meds still 1/2 tablet due to nausea if increased, she is doing well. Not falls but some close calls reported since last tx. Daughter mentions end tx, can work on floor transfers and squat balance picking up object for safety decrease fall risk. PT-OP-E Functional Tests Start: 02/11/22 08:27 Freq: Status: Active Protocol: Document 02/19/22 14:30 AMB (Rec: 02/19/22 15:40 AMB [id number]) Functional Tests 10 Meter Walk Test Distance 7 Device Used none Comments fast =7 seconds, 10= self selected pace Dynamic Gait Index (DGI) Score 6 DGI Impairment Rating 60 to <80% Impaired (Score 5-9 ) PT-OP-G Mobility & Gait Start: 02/11/22 08:27 Freq: Status: Active Protocol: Document 02/19/22 14:30 AMB (Rec: 02/19/22 15:40 AMB [id number]) OP Mobility Evaluation Transfers Sit to Stand heavy verbal and physical cues for sit to stand- pt usually needs Luda or something to pull on at home per daughter, cued WBOS, feet underneath MONSERRAT , nose over toes to encourage forward lean, pt tends to have post LOB OP Gait Assessment Comments Gait Comments Shuffling gait pattern, does tend to catch toes, not currently using AD, needs CGA/ Luda to prevent LOB Stair Climbing Evaluation Evaluation Level of Assist On Stairs Contact Guard Assistance Devices Stair Climbing Assistive Devices Left Railing,Right Railing Comments Stair Climbing Comments CGA can ascend and descend 4 steps with 2 railings with alternating gait pattern, but needs extra time to really feel where she is placing her feet PT-OP-M Strength Start: 02/11/22 08:27 Freq: Status: Active Protocol: Document 02/19/22 14:30 AMB (Rec: 02/19/22 15:40 AMB [id number]) Hip Strength Hip Manual Muscle Testing Right Flexion (L2) 4+ Good+ Abduction 4 Good Adduction 4 Good Comments tested in seated Left Flexion (L2) 4+ Good+ Abduction 4 Good Adduction 4 Good Comments tested in seated Knee Strength Knee Manual Muscle Testing Right Flexion (S2) 5 Normal Extension (L3) 5 Normal Left Flexion (S2) 5 Normal Extension (L3) 5 Normal Ankle/Foot Strength Ankle and Foot Manual Muscle Testing Right Dorsiflexion (L4) 4 Good Plantarflexion (S1) 4 Good Left Dorsiflexion (L4) 4 Good Plantarflexion (S1) 4 Good PT-OP-Q Treatments Start: 02/11/22 08:27 Freq: Status: Active Protocol: Document 03/31/22 09:48 SP (Rec: 03/31/22 10:38 SP [id number]) Cardio Equipment Recumbent Stepper (Sci-Fit) Duration (Minutes) 5 Resistance 1 Seat Position 8 Other visual cue to maintain 25-30 rpm, push through heel only, 35-37 SPM Therapeutic Exercises Standing Exercises Shoulder extension Side bilateral Resistance Lvl 1 Tb Equipment Used Posterior chain strengthening anchorted at doorframe Reps/Minutes x10 Comments initial cues for straight arms rows Standing Exercise Name scapular retraction Resistance Lvl 1 Tb Equipment Used Posterior chain strengthening at wall Reps/Minutes x10 Comments cues for form, elbows at sides october in place Standing Exercise Name march in place Equipment Used 4WW Comments 60 bpm in preparation for gait ; amplitude focus Therapeutic Activity Therapeutic Activity transfers Name transfers Reps/Minutes x4 (against wall x3, x1 open space) Comments Up from chair, use 4WW to ambulate 10 feet to position against wall, pivot, ease hip hinge sit with contact 4WW safety and not lean into, Min A stable when in open space Cues for redirect carryover view post-its on 4WW seat: LOCK BRAKES LET GO HANDS ON LAP. Pt able to fade cues to read your notes and pt was successful in following steps 50% of trials. STS Name Sit to Stand Reps/Minutes 4 x 5 reps Comments w/ hands on thighs (up and down) for anterior weight shift. Cues for knee alignment and controlled descent - decreased knee valgus w/ Tb at knees - reviewed HEP. Gait Training Gait Activity 4WW Description gait with 4WW Device Used 4WW Level of Assistance SBA Surface tile, carpet Distance/Duration 190' x 2 Treatment Focus slower pacing (60 bpm), proximity to walker, posture, turns Comments -Laps around gym with emphasis on practicing STOPS on cue ( stop, stand tall, reset for big step) -Around 4 cones with emphasis on obstacle clearance. Performance improved today to knocking down only one cone out of 4. -not done today - Turns: Pt practiced turning with bigger steps. PT-OP-T Assessment and Plan Start: 02/11/22 08:27 Freq: Status: Active Protocol: Document 03/31/22 09:48 SP (Rec: 03/31/22 10:38 SP [id number]) Physical Therapy Assessment Goals Two Impairment Sit to stand Short Term Goal (STG) Helen will stand from a standard height chair using UE support but without posterior LOB. 03/19/22 - Pt able to stand without UE support but does better with hands on lap. No LOB on single trials. Inconsistent with multiple trials with posterior LOB ~30% of trials. STG Duration 4 weeks Long-Term Goal (LTG) Helen will stand 5x from a standard height chair in 20 seconds or less. 03/19/22 - Pt able to stand 5 times with min support hands on lap in 18 or 16 seconds but has posterior LOB on three reps, lands hard. LTG Duration 8 weeks One Impairment Gait Short Term Goal (STG) Helen will improve her DGI score to 12/24 or greater to show reduced risk of falling. 03/19/22 - GOAL MET 08/15. STG Duration 4 weeks Cook Manager Goal (LTG) Helen will ambulate with an appropriate AD for 6 minutes over smooth terrain without LOB or right hip pain. LTG Duration 8 weeks Assessment Summary Assessment Pt required Mod cues for 4WW positioning away from wall on L, small steps foot clearance pivoting/turns, and safety transfers positioning to wall and open space seated slow sit . Min A required for 4WW stability when not against something due to pt tends to lean into. Physical Therapy Plan Frequency and Duration Frequency of Treatment 2x/Week Duration of Treatment 8 weeks Plan of Care Start Date 02/19/22 Plan of Care End Date 04/20/22 Therapeutic Interventions Therapeutic Interventions Balance Training,Gait Training ,Joint Mobilizations,Manual Therapy,Neuromuscular Re- education,Self-Care/Home Management,Therapeutic Activities,Therapeutic Exercises Modalities Cold Pack/Ice Massage,Electric Stimulation,Hot Packs Next Visit Focus/Plan Next Note Type Treatment Note Next Visit Plan next tx floor transfers, balance recovery picking up objects from floor. POC: Gait training with 4WW including obstacle clearance. Practice stopping on cue. Daughter would like to revisit floor recover. Consider balance or other exercise in tall kneeling or half kneeling .
--- NOTE | 2022-04-03 10:25 | PT-OP ANOTE ---
Pt called just before appt to cancel due to intestinal issues, unableto attend PT today.
--- NOTE | 2022-04-07 12:19 | PT.OTN ---
Current Diagnoses Unsteadiness on feet (04/07/22) Other abnormalities of gait and mobility (04/07/22) Other symptoms and signs involving cognitive functions and awareness (04/07/22) History of falling (04/07/22) Physical Therapy Treatment Note PT-OP-A Visit Information Start: 02/11/22 08:27 Freq: Status: Active Protocol: Document 04/07/22 11:30 NBM (Rec: 04/07/22 12:19 NBM [id number]) Out-Patient Physical Therapy Visit Information Visit Information Visit Type Treatment Note Visit Note Called pt at 11:28, spoke w/ daughter Kristin who thought appt was at 11:30a. Agreed to short session. Visit Start Time 11:31 Visit Stop Time 12:05 Total Visit Minutes 34 Visit Number 11 Number of UTILIZATION MANAGEMENT NURSE Visits 2 PT-OP-B Current Condition Start: 02/11/22 08:27 Freq: Status: Active Protocol: Document 02/19/22 13:44 AMB (Rec: 02/19/22 14:49 AMB [id number]) Current Condition History of Current Condition Onset Date November 2021 Current Complaints Multiple falls, difficulty with overall mobility History of Current Condition Erikmaribel (pronounced Catherine with an L): attends without AD, but is guarded closely by her daughter Kristin and needs assistance with pathfinding. Neurology on 01/28/22 for memory loss. Pt has gait instability , depression, anxiety, neck pain, insomnia (without REM disorder), BUE tremors. MOCA score of 12/30. Began trial of sinemet. Recommendation for hearing aids. History of tinnitus. Neuropsych in December suggested possible Lewy body dementia Daughter, Kristin lives with pt, pays bills, manages appointments, and cooks. Spouse in 2019 from glioblastoma - increased depression. Likes to sew and do puzzles but has not engaged lately. Kristin is no longer working outside the home due to taking care of her mom, she is concerned about her mom's large 4 year old dog being a balance hazard. Recent falls (daughter reports at least 5 in the last 6 months). Increased functional decline and memory loss. No longer walking dog. Daughter is concerned about sit to stand and then when prompted is also concerned about floor transfer, bed mobility, appropriate assistive device. No stairs in home, but 3 stairs to enter without railings. Does have a shower stool, but pt doesn't think she needs to use it, Kristin reports it can take Helen 1-2 hours to get dressed, but she does do it herself. Prior Functional Status Baseline Function- ADL's Independent Baseline Function- Mobility Independent Current Functional Impairments (Reported) Functional Limitations- ADL's extended time needed for dressing, no longer cooking, driving. Personal Factors Other Personal Factors That May Effect Lanne reports R hip pain with Therapy/Recovery walking PT-OP-C Subjective Start: 02/11/22 08:27 Freq: Status: Active Protocol: Document 04/07/22 11:30 NBM (Rec: 04/07/22 12:19 NBM [id number]) OP-PT Subjective Patient Comments Patient Comments Pt reports today is a wobbly day but feels well. Pt PT-OP-E Functional Tests Start: 02/11/22 08:27 Freq: Status: Active Protocol: Document 02/19/22 14:30 AMB (Rec: 02/19/22 15:40 AMB [id number]) Functional Tests 10 Meter Walk Test Distance 7 Device Used none Comments fast =7 seconds, 10= self selected pace Dynamic Gait Index (DGI) Score 6 DGI Impairment Rating 60 to <80% Impaired (Score 5-9 ) PT-OP-G Mobility & Gait Start: 02/11/22 08:27 Freq: Status: Active Protocol: Document 02/19/22 14:30 AMB (Rec: 02/19/22 15:40 AMB [id number]) OP Mobility Evaluation Transfers Sit to Stand heavy verbal and physical cues for sit to stand- pt usually needs Luda or something to pull on at home per daughter, cued WBOS, feet underneath MONSERRAT , nose over toes to encourage forward lean, pt tends to have post LOB OP Gait Assessment Comments Gait Comments Shuffling gait pattern, does tend to catch toes, not currently using AD, needs CGA/ Luda to prevent LOB Stair Climbing Evaluation Evaluation Level of Assist On Stairs Contact Guard Assistance Devices Stair Climbing Assistive Devices Left Railing,Right Railing Comments Stair Climbing Comments CGA can ascend and descend 4 steps with 2 railings with alternating gait pattern, but needs extra time to really feel where she is placing her feet PT-OP-M Strength Start: 02/11/22 08:27 Freq: Status: Active Protocol: Document 02/19/22 14:30 AMB (Rec: 02/19/22 15:40 AMB [id number]) Hip Strength Hip Manual Muscle Testing Right Flexion (L2) 4+ Good+ Abduction 4 Good Adduction 4 Good Comments tested in seated Left Flexion (L2) 4+ Good+ Abduction 4 Good Adduction 4 Good Comments tested in seated Knee Strength Knee Manual Muscle Testing Right Flexion (S2) 5 Normal Extension (L3) 5 Normal Left Flexion (S2) 5 Normal Extension (L3) 5 Normal Ankle/Foot Strength Ankle and Foot Manual Muscle Testing Right Dorsiflexion (L4) 4 Good Plantarflexion (S1) 4 Good Left Dorsiflexion (L4) 4 Good Plantarflexion (S1) 4 Good PT-OP-Q Treatments Start: 02/11/22 08:27 Freq: Status: Active Protocol: Document 04/07/22 11:30 NBM (Rec: 04/07/22 12:19 [facility] [id number]) Therapeutic Activity Therapeutic Activity bed mobility Name bed mobility Comments in/out SBA, scooting laterally in supine, SLR, marching, bridging (DL and SL), hip flexion from extended position EOB, sit to stand, pulling covers on and off, log roll Gait Training Gait Activity 4WW Description gait with 4WW Device Used 4WW Level of Assistance SBA Surface tile, carpet Distance/Duration 190' x 2 Treatment Focus proximity to walker, posture, amplitude PT-OP-T Assessment and Plan Start: 02/11/22 08:27 Freq: Status: Active Protocol: Document 04/07/22 11:30 NBM (Rec: 04/07/22 12:19 [facility] [id number]) Physical Therapy Assessment Goals Two Impairment Sit to stand Short Term Goal (STG) Lanne will stand from a standard height chair using UE support but without posterior LOB. 03/19/22 - Pt able to stand without UE support but does better with hands on lap. No LOB on single trials. Inconsistent with multiple trials with posterior LOB ~30% of trials. STG Duration 4 weeks Barge Pilot Goal (LTG) Lanne will stand 5x from a standard height chair in 20 seconds or less. 03/19/22 - Pt able to stand 5 times with min support hands on lap in 18 or 16 seconds but has posterior LOB on three reps, lands hard. LTG Duration 8 weeks Assessment Summary Assessment Pt arrives late w/ 4WW and daughter - agrees to short session. Treatment focus today on gait training and bed mobility. Pt requires initial cueing for sequencing of getting out of bed on L, and reaching across body w/ R UE - no cueing required by end of session. Pt requires consistent cues for 4WW proximation, amplitude and upright posture. Pt performs sit to stand with hands on thighs without cueing. Pt and daughter will go to [employer] to improve brakes on 4WW. Physical Therapy Plan Next Visit Focus/Plan Next Note Type Treatment Note Next Visit Plan Check if 4WW brakes were replaced. next tx floor transfers, balance recovery picking up objects from floor. POC: Gait training with 4WW including obstacle clearance. Practice stopping on cue. Daughter would like to revisit floor recover. Consider balance or other exercise in tall kneeling or half kneeling .
--- NOTE | 2022-04-10 22:02 | PT.OTN ---
Current Diagnoses Unsteadiness on feet (04/10/22) Other abnormalities of gait and mobility (04/10/22) Other symptoms and signs involving cognitive functions and awareness (04/10/22) History of falling (04/10/22) Physical Therapy Treatment Note PT-OP-A Visit Information Start: 02/11/22 08:27 Freq: Status: Active Protocol: Document 04/10/22 13:48 AMB (Rec: 04/10/22 14:30 AMB [id number]) Out-Patient Physical Therapy Visit Information Visit Information Visit Type Treatment Note Visit Start Time 13:45 Visit Stop Time 14:30 Total Visit Minutes 45 Visit Number 13 Number of QUALITY CONTROL TECH RAW MATERIALS Visits 0 PT-OP-B Current Condition Start: 02/11/22 08:27 Freq: Status: Active Protocol: Document 02/19/22 13:44 AMB (Rec: 02/19/22 14:49 AMB [id number]) Current Condition History of Current Condition Onset Date November 2021 Current Complaints Multiple falls, difficulty with overall mobility History of Current Condition Helen (ginny Alexander with an L): attends without AD, but is guarded closely by her daughter Kristin and needs assistance with pathfinding. Neurology on 01/28/22 for memory loss. Pt has gait instability , depression, anxiety, neck pain, insomnia (without REM disorder), BUE tremors. MOCA score of 1230. Began trial of sinemet. Recommendation for hearing aids. History of tinnitus. Neuropsych in December suggested possible Lewy body dementia Daughter, Kristin lives with pt, pays bills, manages appointments, and cooks. Spouse in 2019 from glioblastoma - increased depression. Likes to sew and do puzzles but has not engaged lately. Kristin is no longer working outside the home due to taking care of her mom, she is concerned about her mom's large 4 year old dog being a balance hazard. Recent falls (daughter reports at least 5 in the last 6 months). Increased functional decline and memory loss. No longer walking dog. Daughter is concerned about sit to stand and then when prompted is also concerned about floor transfer, bed mobility, appropriate assistive device. No stairs in home, but 3 stairs to enter without railings. Does have a shower stool, but pt doesn't think she needs to use it, Kristin reports it can take Helen 1-2 hours to get dressed, but she does do it herself. Prior Functional Status Baseline Function- ADL's Independent Baseline Function- Mobility Independent Current Functional Impairments (Reported) Functional Limitations- ADL's extended time needed for dressing, no longer cooking, driving. Personal Factors Other Personal Factors That May Effect Helen reports R hip pain with Therapy/Recovery walking PT-OP-C Subjective Start: 02/11/22 08:27 Freq: Status: Active Protocol: Document 04/10/22 13:45 AMB (Rec: 04/11/22 22:02 AMB [id number]) OP-PT Subjective Patient Comments Patient Comments Pt's daughter Kristin states Helen's legs have been getting weak by about 8pm (they go to bed at 9pm) and so she has been helping her more at night to get ready for bed. PT-OP-E Functional Tests Start: 02/11/22 08:27 Freq: Status: Active Protocol: Document 02/19/22 14:30 AMB (Rec: 02/19/22 15:40 AMB [id number]) Functional Tests 10 Meter Walk Test Distance 7 Device Used none Comments fast =7 seconds, 10= self selected pace Dynamic Gait Index (DGI) Score 6 DGI Impairment Rating 60 to <80% Impaired (Score 5-9 ) PT-OP-G Mobility & Gait Start: 02/11/22 08:27 Freq: Status: Active Protocol: Document 02/19/22 14:30 AMB (Rec: 02/19/22 15:40 AMB [id number]) OP Mobility Evaluation Transfers Sit to Stand heavy verbal and physical cues for sit to stand- pt usually needs Luda or something to pull on at home per daughter, cued WBOS, feet underneath MONSERRAT , nose over toes to encourage forward lean, pt tends to have post LOB OP Gait Assessment Comments Gait Comments Shuffling gait pattern, does tend to catch toes, not currently using AD, needs CGA/ Luda to prevent LOB Stair Climbing Evaluation Evaluation Level of Assist On Stairs Contact Guard Assistance Devices Stair Climbing Assistive Devices Left Railing,Right Railing Comments Stair Climbing Comments CGA can ascend and descend 4 steps with 2 railings with alternating gait pattern, but needs extra time to really feel where she is placing her feet PT-OP-M Strength Start: 06/22/22 08:27 Freq: Status: Active Protocol: Document 02/19/22 14:30 AMB (Rec: 02/19/22 15:40 AMB [id number]) Hip Strength Hip Manual Muscle Testing Right Flexion (L2) 4+ Good+ Abduction 4 Good Adduction 4 Good Comments tested in seated Left Flexion (L2) 4+ Good+ Abduction 4 Good Adduction 4 Good Comments tested in seated Knee Strength Knee Manual Muscle Testing Right Flexion (S2) 5 Normal Extension (L3) 5 Normal Left Flexion (S2) 5 Normal Extension (L3) 5 Normal Ankle/Foot Strength Ankle and Foot Manual Muscle Testing Right Dorsiflexion (L4) 4 Good Plantarflexion (S1) 4 Good Left Dorsiflexion (L4) 4 Good Plantarflexion (S1) 4 Good PT-OP-Q Treatments Start: 02/11/22 08:27 Freq: Status: Active Protocol: Document 04/10/22 13:45 AMB (Rec: 04/11/22 22:02 AMB [id number]) Cardio Equipment Recumbent Stepper (Sci-Fit) Duration (Minutes) 5 Resistance 1 Seat Position 8 Other visual cue to maintain 25-30 rpm, push through heel only, 35-37 SPM Therapeutic Activity Therapeutic Activity transfers Name transfers Reps/Minutes x8 Comments Up from chair, use 4WW to ambulate 3 feet to pivot, ease hip hinge sit with contact 4WW safety and not lean into, Cues for redirect carryover view post-its on 4WW seat: LOCK BRAKES LET GO Pt able to fade cues to read your notes and pt was successful in following steps 50% of trials. Gait Training Gait Activity 4WW Description gait with 4WW Device Used 4WW Level of Assistance SBA/ Luda at end Surface tile, carpet Distance/Duration 190' x 2 Treatment Focus proximity to walker, posture, amplitude Comments With fatigue Helen needed Luda to stop 4WW due to having CoG too far anterior and taking fast steps. Cued to avoid this in the beginning and pt could perform without physical assist, but deteriorated quickly with fatigue. PT-OP-T Assessment and Plan Start: 02/11/22 08:27 Freq: Status: Active Protocol: Document 04/10/22 13:45 AMB (Rec: 04/10/22 16:09 AMB [id number]) Physical Therapy Assessment Goals Two Impairment Sit to stand Short Term Goal (STG) Helen will stand from a standard height chair using UE support but without posterior LOB. 03/19/22 - Pt able to stand without UE support but does better with hands on lap. No LOB on single trials. Inconsistent with multiple trials with posterior LOB ~30% of trials. STG Duration 4 weeks Nursing Home Goal (LTG) Helen will stand 5x from a standard height chair in 20 seconds or less. 03/19/22 - Pt able to stand 5 times with min support hands on lap in 18 or 16 seconds but has posterior LOB on three reps, lands hard. LTG Duration 8 weeks One Impairment Gait Short Term Goal (STG) Helen will improve her DGI score to 08/15 or greater to show reduced risk of falling. 03/19/22 - GOAL MET 08/15. STG Duration 4 weeks Wheel Molder Goal (LTG) Helen will ambulate with an appropriate AD for 6 minutes over smooth terrain without LOB or right hip pain. LTG Duration 8 weeks Assessment Summary Assessment Encouraged Kristin to work on short cues with her mom as much as possible example stop , brakes, let go. They have not been going on walks due to more leg fatigue at night necessitating Helen be helped with donning/doffing pajamas. With gait in PT, Helen needs cues to avoid fast stepping/festinating gait pattern/getting 4WW too far in front. Physical Therapy Plan Next Visit Focus/Plan Next Note Type Treatment Note Next Visit Plan Address scheduling: does pt/ daughter want more PT visits Next tx floor transfers, balance recovery picking up objects from floor. POC: Gait training with 4WW including obstacle clearance. Practice stopping on cue. Daughter would like to revisit floor recover. Consider balance or other exercise in tall kneeling or half kneeling .
--- NOTE | 2022-04-17 13:09 | PT.OTN ---
Current Diagnoses Unsteadiness on feet (04/17/22) Other abnormalities of gait and mobility (04/17/22) Other symptoms and signs involving cognitive functions and awareness (04/17/22) History of falling (04/17/22) Physical Therapy Treatment Note PT-OP-A Visit Information Start: 02/11/22 08:27 Freq: Status: Active Protocol: Document 04/17/22 11:15 AMB (Rec: 04/17/22 13:09 AMB [id number]) Out-Patient Physical Therapy Visit Information Visit Information Visit Type Treatment Note Visit Start Time 11:15 Visit Stop Time 12:00 Total Visit Minutes 45 Visit Number 14 Number of COLDFUSION Visits 0 PT-OP-B Current Condition Start: 02/11/22 08:27 Freq: Status: Active Protocol: Document 02/19/22 13:44 AMB (Rec: 02/19/22 14:49 AMB [id number]) Current Condition History of Current Condition Onset Date November 2021 Current Complaints Multiple falls, difficulty with overall mobility History of Current Condition Helen (ginny Alexander with an L): attends without AD, but is guarded closely by her daughter Kristin and needs assistance with pathfinding. Neurology on 01/28/22 for memory loss. Pt has gait instability , depression, anxiety, neck pain, insomnia (without REM disorder), BUE tremors. MOCA score of 08/21. Began trial of sinemet. Recommendation for hearing aids. History of tinnitus. Neuropsych in December suggested possible Lewy body dementia Daughter, Kristin lives with pt, pays bills, manages appointments, and cooks. Spouse in 2019 from glioblastoma - increased depression. Likes to sew and do puzzles but has not engaged lately. Kristin is no longer working outside the home due to taking care of her mom, she is concerned about her mom's large 4 year old dog being a balance hazard. Recent falls (daughter reports at least 5 in the last 6 months). Increased functional decline and memory loss. No longer walking dog. Daughter is concerned about sit to stand and then when prompted is also concerned about floor transfer, bed mobility, appropriate assistive device. No stairs in home, but 3 stairs to enter without railings. Does have a shower stool, but pt doesn't think she needs to use it, Kristin reports it can take Helen 1-2 hours to get dressed, but she does do it herself. Prior Functional Status Baseline Function- ADL's Independent Baseline Function- Mobility Independent Current Functional Impairments (Reported) Functional Limitations- ADL's extended time needed for dressing, no longer cooking, driving. Personal Factors Other Personal Factors That May Effect Helen reports R hip pain with Therapy/Recovery walking PT-OP-C Subjective Start: 02/11/22 08:27 Freq: Status: Active Protocol: Document 04/17/22 11:15 AMB (Rec: 04/17/22 13:09 AMB [id number]) OP-PT Subjective Patient Comments Patient Comments Helen has had two falls, both when sitting on the couch and being surprised by the doorbell, and rushing for the door. PT-OP-E Functional Tests Start: 02/11/22 08:27 Freq: Status: Active Protocol: Document 02/19/22 14:30 AMB (Rec: 02/19/22 15:40 AMB [id number]) Functional Tests 10 Meter Walk Test Distance 7 Device Used none Comments fast =7 seconds, 10= self selected pace Dynamic Gait Index (DGI) Score 6 DGI Impairment Rating 60 to <80% Impaired (Score 5-9 ) PT-OP-G Mobility & Gait Start: 02/11/22 08:27 Freq: Status: Active Protocol: Document 02/19/22 14:30 AMB (Rec: 02/19/22 15:40 AMB [id number]) OP Mobility Evaluation Transfers Sit to Stand heavy verbal and physical cues for sit to stand- pt usually needs Luda or something to pull on at home per daughter, cued WBOS, feet underneath MONSERRAT , nose over toes to encourage forward lean, pt tends to have post LOB OP Gait Assessment Comments Gait Comments Shuffling gait pattern, does tend to catch toes, not currently using AD, needs CGA/ Luda to prevent LOB Stair Climbing Evaluation Evaluation Level of Assist On Stairs Contact Guard Assistance Devices Stair Climbing Assistive Devices Left Railing,Right Railing Comments Stair Climbing Comments CGA can ascend and descend 4 steps with 2 railings with alternating gait pattern, but needs extra time to really feel where she is placing her feet PT-OP-M Strength Start: 02/11/22 08:27 Freq: Status: Active Protocol: Document 02/19/22 14:30 AMB (Rec: 02/19/22 15:40 AMB [id number]) Hip Strength Hip Manual Muscle Testing Right Flexion (L2) 4+ Good+ Abduction 4 Good Adduction 4 Good Comments tested in seated Left Flexion (L2) 4+ Good+ Abduction 4 Good Adduction 4 Good Comments tested in seated Knee Strength Knee Manual Muscle Testing Right Flexion (S2) 5 Normal Extension (L3) 5 Normal Left Flexion (S2) 5 Normal Extension (L3) 5 Normal Ankle/Foot Strength Ankle and Foot Manual Muscle Testing Right Dorsiflexion (L4) 4 Good Plantarflexion (S1) 4 Good Left Dorsiflexion (L4) 4 Good Plantarflexion (S1) 4 Good PT-OP-Q Treatments Start: 02/11/22 08:27 Freq: Status: Active Protocol: Document 04/17/22 11:15 AMB (Rec: 04/17/22 13:09 AMB [id number]) Cardio Equipment Recumbent Stepper (Sci-Fit) Duration (Minutes) 5 Resistance 1 Seat Position 8 Other visual cue to maintain 25-30 rpm, push through heel only, 35-37 SPM Therapeutic Activity Therapeutic Activity transfers Name transfers Reps/Minutes x8 Comments Sit to stand with gait belt and Luda- pt and caregiver education in set up for sit to stand when Helen is more tired in the evenings and needs more assist Self-Care/Home Management Treatment Education Caregiver Education Kristin has questions regarding ways to help Helen participate more at home re cooking cleaning, but keeping her safe. Discussed modifications to kitchen/ cleaning activities, as well as nighttime bed side commode to reduce fall risk PT-OP-T Assessment and Plan Start: 02/11/22 08:27 Freq: Status: Active Protocol: Document 04/17/22 11:15 AMB (Rec: 04/17/22 13:09 AMB [id number]) Physical Therapy Assessment Goals Two Impairment Sit to stand Short Term Goal (STG) Helen will stand from a standard height chair using UE support but without posterior LOB. 03/19/22 - Pt able to stand without UE support but does better with hands on lap. No LOB on single trials. Inconsistent with multiple trials with posterior LOB ~30% of trials. STG Duration 4 weeks [facility] Goal (LTG) Helen will stand 5x from a standard height chair in 20 seconds or less. 03/19/22 - Pt able to stand 5 times with min support hands on lap in 18 or 16 seconds but has posterior LOB on three reps, lands hard. LTG Duration 8 weeks One Impairment Gait Short Term Goal (STG) Helen will improve her DGI score to 12/24 or greater to show reduced risk of falling. 03/19/22 - GOAL MET 08/15. STG Duration 4 weeks School Director Goal (LTG) Helen will ambulate with an appropriate AD for 6 minutes over smooth terrain without LOB or right hip pain. LTG Duration 8 weeks Assessment Summary Assessment Helen continued to need cues for correct use of 4WW. Was not hurt with two falls, but encouraged Kristin and Helen to look at ways for Helen to have meaningful activities at home that she can do safely. Physical Therapy Plan Frequency and Duration Frequency of Treatment 2x/Week Duration of Treatment 8 weeks Plan of Care Start Date 02/19/22 Plan of Care End Date 04/20/22 Next Visit Focus/Plan Next Note Type Treatment Note Next Visit Plan Next tx floor transfers, balance recovery picking up objects from floor. POC: Gait training with 4WW including obstacle clearance. Practice stopping on cue. Daughter would like to revisit floor recover. Consider balance or other exercise in tall kneeling or half kneeling .
--- NOTE | 2022-04-21 15:28 | PT.OTN ---
Current Diagnoses Unsteadiness on feet (04/21/22) Other abnormalities of gait and mobility (04/21/22) Other symptoms and signs involving cognitive functions and awareness (04/21/22) History of falling (04/21/22) Physical Therapy Treatment Note PT-OP-A Visit Information Start: 02/11/22 08:27 Freq: Status: Active Protocol: Document 04/21/22 15:17 LJ (Rec: 04/21/22 15:27 LJ [id number]) Out-Patient Physical Therapy Visit Information Visit Information Visit Type Treatment Note Visit Start Time 13:00 Visit Stop Time 13:45 Total Visit Minutes 45 Visit Number 15 Number of APPLICATION TESTER Visits 1 PT-OP-B Current Condition Start: 02/11/22 08:27 Freq: Status: Active Protocol: Document 02/19/22 13:44 AMB (Rec: 02/19/22 14:49 AMB [id number]) Current Condition History of Current Condition Onset Date November 2021 Current Complaints Multiple falls, difficulty with overall mobility History of Current Condition Helen (ginny Alexander with an L): attends without AD, but is guarded closely by her daughter Kristin and needs assistance with pathfinding. Neurology on 01/28/22 for memory loss. Pt has gait instability , depression, anxiety, neck pain, insomnia (without REM disorder), BUE tremors. MOCA score of 30. Began trial of sinemet. Recommendation for hearing aids. History of tinnitus. Neuropsych in December suggested possible Lewy body dementia Daughter, Kristin lives with pt, pays bills, manages appointments, and cooks. Spouse in 2019 from glioblastoma - increased depression. Likes to sew and do puzzles but has not engaged lately. Kristin is no longer working outside the home due to taking care of her mom, she is concerned about her mom's large 4 year old dog being a balance hazard. Recent falls (daughter reports at least 5 in the last 6 months). Increased functional decline and memory loss. No longer walking dog. Daughter is concerned about sit to stand and then when prompted is also concerned about floor transfer, bed mobility, appropriate assistive device. No stairs in home, but 3 stairs to enter without railings. Does have a shower stool, but pt doesn't think she needs to use it, Kristin reports it can take Helen 1-2 hours to get dressed, but she does do it herself. Prior Functional Status Baseline Function- ADL's Independent Baseline Function- Mobility Independent Current Functional Impairments (Reported) Functional Limitations- ADL's extended time needed for dressing, no longer cooking, driving. 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 She was not hurt. Would like to practice ways to get up off floor. PT-OP-E Functional Tests Start: 02/11/22 08:27 Freq: Status: Active Protocol: Document 02/19/22 14:30 AMB (Rec: 02/19/22 15:40 AMB [id number]) Functional Tests 10 Meter Walk Test Distance 7 Device Used none Comments fast =7 seconds, 10= self selected pace Dynamic Gait Index (DGI) Score 6 DGI Impairment Rating 60 to <80% Impaired (Score 5-9 ) PT-OP-G Mobility & Gait Start: 02/11/22 08:27 Freq: Status: Active Protocol: Document 02/19/22 14:30 AMB (Rec: 02/19/22 15:40 AMB [id number]) OP Mobility Evaluation Transfers Sit to Stand heavy verbal and physical cues for sit to stand- pt usually needs Luda or something to pull on at home per daughter, cued WBOS, feet underneath MONSERRAT , nose over toes to encourage forward lean, pt tends to have post LOB OP Gait Assessment Comments Gait Comments Shuffling gait pattern, does tend to catch toes, not currently using AD, needs CGA/ Luda to prevent LOB Stair Climbing Evaluation Evaluation Level of Assist On Stairs Contact Guard Assistance Devices Stair Climbing Assistive Devices Left Railing,Right Railing Comments Stair Climbing Comments CGA can ascend and descend 4 steps with 2 railings with alternating gait pattern, but needs extra time to really feel where she is placing her feet PT-OP-M Strength Start: 02/11/22 08:27 Freq: Status: Active Protocol: Document 02/19/22 14:30 AMB (Rec: 02/19/22 15:40 AMB [id number]) Hip Strength Hip Manual Muscle Testing Right Flexion (L2) 4+ Good+ Abduction 4 Good Adduction 4 Good Comments tested in seated Left Flexion (L2) 4+ Good+ Abduction 4 Good Adduction 4 Good Comments tested in seated Knee Strength Knee Manual Muscle Testing Right Flexion (S2) 5 Normal Extension (L3) 5 Normal Left Flexion (S2) 5 Normal Extension (L3) 5 Normal Ankle/Foot Strength Ankle and Foot Manual Muscle Testing Right Dorsiflexion (L4) 4 Good Plantarflexion (S1) 4 Good Left Dorsiflexion (L4) 4 Good Plantarflexion (S1) 4 Good PT-OP-Q Treatments Start: 02/11/22 08:27 Freq: Status: Active Protocol: Document 04/21/22 15:17 KEVIN (Rec: 04/21/22 15:27 KEVIN [id number]) Cardio Equipment Recumbent Stepper (Sci-Fit) Duration (Minutes) 8 Resistance 3 Seat Position 8 Other cues to increase and maintain speed Therapeutic Activity Therapeutic Activity transfers Name transfers Reps/Minutes x8 Comments Sit to stand with gait belt and Luda- pt and caregiver education in set up for sit to stand when Helen is more tired in the evenings and needs more assist floor recovery Name floor recovery Comments down to blue tumbling mat in quadruped > roll to side > up in quadruped > hands on chair > one foot forward > push up to standing. Max cues and CGA for all except up to standing which she did with use of chair for support and much verbal cueing Self-Care/Home Management Treatment Education Caregiver Education Kristin underwent caregiver training for transfers and getting up off the floor. PT-OP-T Assessment and Plan Start: 02/11/22 08:27 Freq: Status: Active Protocol: Document 04/21/22 15:17 KEVIN (Rec: 04/21/22 15:27 LJ [id number]) Physical Therapy Assessment Goals Two Impairment Sit to stand Short Term Goal (STG) Helen will stand from a standard height chair using UE support but without posterior LOB. 03/19/22 - Pt able to stand without UE support but does better with hands on lap. No LOB on single trials. Inconsistent with multiple trials with posterior LOB ~30% of trials. STG Duration 4 weeks Snf Goal (LTG) Helen will stand 5x from a standard height chair in 20 seconds or less. 03/19/22 - Pt able to stand 5 times with min support hands on lap in 18 or 16 seconds but has posterior LOB on three reps, lands hard. LTG Duration 8 weeks One Impairment Gait Short Term Goal (STG) Helen will improve her DGI score to 12/24 or greater to show reduced risk of falling. 03/19/22 - GOAL MET 08/15. STG Duration 4 weeks Sap Gatherer Goal (LTG) Helen will ambulate with an appropriate AD for 6 minutes over smooth terrain without LOB or right hip pain. LTG Duration 8 weeks Assessment Summary Assessment Helen continued to need cues for correct use of 4WW and required assist with steering past equipment while walking through gym from one area to the next. Bumped into equipment once. She has LE strength to get up off the floor but is confused as to the steps and body positioning . Needs constant cueing. Physical Therapy Plan Frequency and Duration Frequency of Treatment 2x/Week Duration of Treatment 8 weeks Plan of Care Start Date 02/19/22 Plan of Care End Date 04/20/22 Next Visit Focus/Plan Next Note Type Treatment Note Next Visit Plan Next tx floor transfers, balance recovery picking up objects from floor. POC: Gait training with 4WW including obstacle clearance. Practice stopping on cue. Daughter would like to revisit floor recover. Consider balance or other exercise in tall kneeling or half kneeling .
--- NOTE | 2022-04-23 16:02 | PT.OTN ---
Current Diagnoses Unsteadiness on feet (04/23/22) Other abnormalities of gait and mobility (04/23/22) Other symptoms and signs involving cognitive functions and awareness (04/23/22) History of falling (04/23/22) Physical Therapy Treatment Note PT-OP-A Visit Information Start: 02/11/22 08:27 Freq: Status: Active Protocol: Document 04/23/22 11:15 AMB (Rec: 04/23/22 16:02 AMB [id number]) Out-Patient Physical Therapy Visit Information Visit Information Visit Type Treatment Note Visit Start Time 11:15 Visit Stop Time 12:00 Total Visit Minutes 45 Visit Number 16 PT-OP-B Current Condition Start: 02/11/22 08:27 Freq: Status: Active Protocol: Document 02/19/22 13:44 AMB (Rec: 02/19/22 14:49 AMB [id number]) Current Condition History of Current Condition Onset Date November 2021 Current Complaints Multiple falls, difficulty with overall mobility History of Current Condition Helen (ginny Alexander with an L): attends without AD, but is guarded closely by her daughter Kristin and needs assistance with pathfinding. Neurology on 01/28/22 for memory loss. Pt has gait instability , depression, anxiety, neck pain, insomnia (without REM disorder), BUE tremors. MOCA score of 08/21. Began trial of sinemet. Recommendation for hearing aids. History of tinnitus. Neuropsych in December suggested possible Lewy body dementia Daughter, Kristin lives with pt, pays bills, manages appointments, and cooks. Spouse in 2019 from glioblastoma - increased depression. Likes to sew and do puzzles but has not engaged lately. Kristin is no longer working outside the home due to taking care of her mom, she is concerned about her mom's large 4 year old dog being a balance hazard. Recent falls (daughter reports at least 5 in the last 6 months). Increased functional decline and memory loss. No longer walking dog. Daughter is concerned about sit to stand and then when prompted is also concerned about floor transfer, bed mobility, appropriate assistive device. No stairs in home, but 3 stairs to enter without railings. Does have a shower stool, but pt doesn't think she needs to use it, Kristin reports it can take Helen 1-2 hours to get dressed, but she does do it herself. Prior Functional Status Baseline Function- ADL's Independent Baseline Function- Mobility Independent Current Functional Impairments (Reported) Functional Limitations- ADL's extended time needed for dressing, no longer cooking, driving. Personal Factors Other Personal Factors That May Effect Helen reports R hip pain with Therapy/Recovery walking PT-OP-C Subjective Start: 02/11/22 08:27 Freq: Status: Active Protocol: Document 04/23/22 11:15 AMB (Rec: 04/23/22 16:02 AMB [id number]) OP-PT Subjective Patient Comments Patient Comments No new falls to report. PT-OP-E Functional Tests Start: 02/11/22 08:27 Freq: Status: Active Protocol: Document 02/19/22 14:30 AMB (Rec: 02/19/22 15:40 AMB [id number]) Functional Tests 10 Meter Walk Test Distance 7 Device Used none Comments fast =7 seconds, 10= self selected pace Dynamic Gait Index (DGI) Score 6 DGI Impairment Rating 60 to <80% Impaired (Score 5-9 ) PT-OP-G Mobility & Gait Start: 02/11/22 08:27 Freq: Status: Active Protocol: Document 02/19/22 14:30 AMB (Rec: 02/19/22 15:40 AMB [id number]) OP Mobility Evaluation Transfers Sit to Stand heavy verbal and physical cues for sit to stand- pt usually needs Luda or something to pull on at home per daughter, cued WBOS, feet underneath MONSERRAT , nose over toes to encourage forward lean, pt tends to have post LOB OP Gait Assessment Comments Gait Comments Shuffling gait pattern, does tend to catch toes, not currently using AD, needs CGA/ Luda to prevent LOB Stair Climbing Evaluation Evaluation Level of Assist On Stairs Contact Guard Assistance Devices Stair Climbing Assistive Devices Left Railing,Right Railing Comments Stair Climbing Comments CGA can ascend and descend 4 steps with 2 railings with alternating gait pattern, but needs extra time to really feel where she is placing her feet PT-OP-M Strength Start: 02/11/22 08:27 Freq: Status: Active Protocol: Document 02/19/22 14:30 AMB (Rec: 02/19/22 15:40 AMB [id number]) Hip Strength Hip Manual Muscle Testing Right Flexion (L2) 4+ Good+ Abduction 4 Good Adduction 4 Good Comments tested in seated Left Flexion (L2) 4+ Good+ Abduction 4 Good Adduction 4 Good Comments tested in seated Knee Strength Knee Manual Muscle Testing Right Flexion (S2) 5 Normal Extension (L3) 5 Normal Left Flexion (S2) 5 Normal Extension (L3) 5 Normal Ankle/Foot Strength Ankle and Foot Manual Muscle Testing Right Dorsiflexion (L4) 4 Good Plantarflexion (S1) 4 Good Left Dorsiflexion (L4) 4 Good Plantarflexion (S1) 4 Good PT-OP-Q Treatments Start: 02/11/22 08:27 Freq: Status: Active Protocol: Document 04/23/22 11:15 AMB (Rec: 04/23/22 16:02 AMB [id number]) Therapeutic Exercises Standing Exercises lunges Standing Exercise Name with railing support Reps/Minutes 10 mini squats Standing Exercise Name with railing support Reps/Minutes 10 sit to stand Standing Exercise Name 10 Comments constant cues 4WW in front Gait Training Gait Activity cones Description garbage pick up man cones Level of Assistance CGA Comments 4WW- cues for brakes 4WW Description gait with 4WW Device Used 4WW Level of Assistance Luda Surface tile, carpet Distance/Duration 190' x 2 Treatment Focus proximity to walker, posture, amplitude Comments With fatigue Helen needed Luda to stop 4WW due to having CoG too far anterior and taking fast steps. Encouraged long, slow steps PT-OP-T Assessment and Plan Start: 02/11/22 08:27 Freq: Status: Active Protocol: Document 04/23/22 11:15 AMB (Rec: 04/23/22 16:02 AMB [id number]) Physical Therapy Assessment Goals Two Impairment Sit to stand Short Term Goal (STG) Helen will stand from a standard height chair using UE support but without posterior LOB. 03/19/22 - Pt able to stand without UE support but does better with hands on lap. No LOB on single trials. Inconsistent with multiple trials with posterior LOB ~30% of trials. STG Duration 4 weeks Commercial Plumber Goal (LTG) Helen will stand 5x from a standard height chair in 20 seconds or less. 03/19/22 - Pt able to stand 5 times with min support hands on lap in 18 or 16 seconds but has posterior LOB on three reps, lands hard. LTG Duration 8 weeks One Impairment Gait Short Term Goal (STG) Helen will improve her DGI score to 12/24 or greater to show reduced risk of falling. 03/19/22 - GOAL MET 12/24. STG Duration 4 weeks Residential Goal (LTG) Helen will ambulate with an appropriate AD for 6 minutes over smooth terrain without LOB or right hip pain. LTG Duration 8 weeks Assessment Summary Assessment Helen continued to need verbal and physical cues for safety with gait and transfers. Educated Kristin in options for safety, as she is stressed that Helen keeps getting up at night unsupervised and without her walker to use the bathroom, they already have a bedside commode. Helen was able to bend down to garbage pick up man cones safety but needed constant cues for locking brakes and safety. Physical Therapy Plan Next Visit Focus/Plan Next Note Type Treatment Note Next Visit Plan Next balance recovery POC: Gait training with 4WW including obstacle clearance. Practice stopping on cue. Daughter would like to revisit floor recover. Consider balance or other exercise in tall kneeling or half kneeling .
--- NOTE | 2022-04-30 09:46 | PT.OTN ---
Current Diagnoses Unsteadiness on feet (04/30/22) Other abnormalities of gait and mobility (04/30/22) Other symptoms and signs involving cognitive functions and awareness (04/30/22) History of falling (04/30/22) Physical Therapy Treatment Note PT-OP-A Visit Information Start: 02/11/22 08:27 Freq: Status: Active Protocol: Document 04/30/22 09:01 AW (Rec: 04/30/22 09:46 AW [id number]) Out-Patient Physical Therapy Visit Information Visit Information Visit Type Treatment Note Visit Start Time 09:00 Visit Stop Time 09:40 Total Visit Minutes 40 Visit Number 16 Evaluation Information Evaluation Date 02/12/22 PT-OP-B Current Condition Start: 02/11/22 08:27 Freq: Status: Active Protocol: Document 02/19/22 13:44 AMB (Rec: 02/19/22 14:49 AMB [id number]) Current Condition History of Current Condition Onset Date November 2021 Current Complaints Multiple falls, difficulty with overall mobility History of Current Condition Helen (ginny Alexander with an L): attends without AD, but is guarded closely by her daughter Kristin and needs assistance with pathfinding. Neurology on 01/28/22 for memory loss. Pt has gait instability , depression, anxiety, neck pain, insomnia (without REM disorder), BUE tremors. MOCA score of 12/30. Began trial of sinemet. Recommendation for hearing aids. History of tinnitus. Neuropsych in December suggested possible Lewy body dementia Daughter, Kristin lives with pt, pays bills, manages appointments, and cooks. Spouse in 2019 from glioblastoma - increased depression. Likes to sew and do puzzles but has not engaged lately. Kristin is no longer working outside the home due to taking care of her mom, she is concerned about her mom's large 4 year old dog being a balance hazard. Recent falls (daughter reports at least 5 in the last 6 months). Increased functional decline and memory loss. No longer walking dog. Daughter is concerned about sit to stand and then when prompted is also concerned about floor transfer, bed mobility, appropriate assistive device. No stairs in home, but 3 stairs to enter without railings. Does have a shower stool, but pt doesn't think she needs to use it, Kristin reports it can take Helen 1-2 hours to get dressed, but she does do it herself. Prior Functional Status Baseline Function- ADL's Independent Baseline Function- Mobility Independent Current Functional Impairments (Reported) Functional Limitations- ADL's extended time needed for dressing, no longer cooking, driving. Personal Factors Other Personal Factors That May Effect Helen reports R hip pain with Therapy/Recovery walking PT-OP-C Subjective Start: 02/11/22 08:27 Freq: Status: Active Protocol: Document 04/30/22 09:01 AW (Rec: 04/30/22 09:46 AW [id number]) OP-PT Subjective Patient Comments Patient Comments Having a difficult morning. Has been falling hard onto chairs. PT-OP-E Functional Tests Start: 02/11/22 08:27 Freq: Status: Active Protocol: Document 02/19/22 14:30 AMB (Rec: 02/19/22 15:40 AMB [id number]) Functional Tests 10 Meter Walk Test Distance 7 Device Used none Comments fast =7 seconds, 10= self selected pace Dynamic Gait Index (DGI) Score 6 DGI Impairment Rating 60 to <80% Impaired (Score 5-9 ) PT-OP-G Mobility & Gait Start: 02/11/22 08:27 Freq: Status: Active Protocol: Document 02/19/22 14:30 AMB (Rec: 02/19/22 15:40 AMB [id number]) OP Mobility Evaluation Transfers Sit to Stand heavy verbal and physical cues for sit to stand- pt usually needs Luda or something to pull on at home per daughter, cued WBOS, feet underneath MONSERRAT , nose over toes to encourage forward lean, pt tends to have post LOB OP Gait Assessment Comments Gait Comments Shuffling gait pattern, does tend to catch toes, not currently using AD, needs CGA/ Luda to prevent LOB Stair Climbing Evaluation Evaluation Level of Assist On Stairs Contact Guard Assistance Devices Stair Climbing Assistive Devices Left Railing,Right Railing Comments Stair Climbing Comments CGA can ascend and descend 4 steps with 2 railings with alternating gait pattern, but needs extra time to really feel where she is placing her feet PT-OP-M Strength Start: 02/11/22 08:27 Freq: Status: Active Protocol: Document 02/19/22 14:30 AMB (Rec: 02/19/22 15:40 AMB [id number]) Hip Strength Hip Manual Muscle Testing Right Flexion (L2) 4+ Good+ Abduction 4 Good Adduction 4 Good Comments tested in seated Left Flexion (L2) 4+ Good+ Abduction 4 Good Adduction 4 Good Comments tested in seated Knee Strength Knee Manual Muscle Testing Right Flexion (S2) 5 Normal Extension (L3) 5 Normal Left Flexion (S2) 5 Normal Extension (L3) 5 Normal Ankle/Foot Strength Ankle and Foot Manual Muscle Testing Right Dorsiflexion (L4) 4 Good Plantarflexion (S1) 4 Good Left Dorsiflexion (L4) 4 Good Plantarflexion (S1) 4 Good PT-OP-Q Treatments Start: 02/11/22 08:27 Freq: Status: Active Protocol: Document 04/30/22 09:01 AW (Rec: 04/30/22 09:46 AW [id number]) Therapeutic Exercises Standing Exercises mini squats Standing Exercise Name with railing support Reps/Minutes 10 sit to stand Standing Exercise Name 10 Comments constant cues 4WW in front Therapeutic Activity Therapeutic Activity floor recovery Name floor recovery Comments down to blue tumbling mat in quadruped > roll to side > up in quadruped > hands on chair > one foot forward > push up to standing. Cues and CGA for all except up to standing which she did with use of chair for support. Simple verbal cues work best. Practiced tall kneeling and half-kneeling with UE movements to improve balance for floor recovery. Gait Training Gait Activity cones Description navigate around cones Device Used 4WW Level of Assistance CGA Comments 4 cones for weaving. Mod cues to watch back wheels and stay centered in 4WW. 4WW Description gait with 4WW Device Used 4WW Level of Assistance Luda Surface tile, carpet Distance/Duration 190' Treatment Focus proximity to walker, posture, amplitude Comments With fatigue Helen needed Luda to stop 4WW due to having CoG too far anterior and taking fast steps. Encouraged long, slow steps PT-OP-T Assessment and Plan Start: 02/11/22 08:27 Freq: Status: Active Protocol: Document 04/30/22 09:01 AW (Rec: 04/30/22 09:46 AW [id number]) Physical Therapy Assessment Goals Two Impairment Sit to stand Short Term Goal (STG) Helen will stand from a standard height chair using UE support but without posterior LOB. 03/19/22 - Pt able to stand without UE support but does better with hands on lap. No LOB on single trials. Inconsistent with multiple trials with posterior LOB ~30% of trials. STG Duration 4 weeks Rice Cleaning Machine Tender Goal (LTG) Helen will stand 5x from a standard height chair in 20 seconds or less. 03/19/22 - Pt able to stand 5 times with min support hands on lap in 18 or 16 seconds but has posterior LOB on three reps, lands hard. LTG Duration 8 weeks One Impairment Gait Short Term Goal (STG) Helen will improve her DGI score to 08/15 or greater to show reduced risk of falling. 03/19/22 - GOAL MET 08/15. STG Duration 4 weeks Rice Cleaning Machine Tender Goal (LTG) Helen will ambulate with an appropriate AD for 6 minutes over smooth terrain without LOB or right hip pain. LTG Duration 8 weeks Assessment Summary Assessment Helen is having a good morning today but does require cues to avoid obstacles - mostly on her left side. Practiced tall kneeling and half-kneeling for improved floor recovery. Physical Therapy Plan Frequency and Duration Frequency of Treatment 2x/Week Duration of Treatment 8 weeks Plan of Care Start Date 02/19/22 Plan of Care End Date 04/20/22 Next Visit Focus/Plan Next Note Type Treatment Note Next Visit Plan Next balance recovery POC: Gait training with 4WW including obstacle clearance. Practice stopping on cue. Continue floor recovery. Consider balance or other exercise in tall kneeling or half kneeling.
--- NOTE | 2022-04-30 09:53 | PT.OPPOC ---
Physical, Occupational & Speech Therapy At [facility] Current Diagnoses Unsteadiness on feet (04/30/22) Other abnormalities of gait and mobility (04/30/22) Other symptoms and signs involving cognitive functions and awareness (04/30/22) History of falling (04/30/22) Visit Care Team Role Provider Type Katia Thomas PA-C Family Provider Non-Staff Primary Care Provider Specialty: Internal Medicine Address: [address] [place] [address], [id number] Email: [email or web address] Mayra Mariscal Attending Provider Non-Staff Referring Provider Specialty: Psychiatry Address: [address] [place] [address] [place], [address] Email: Plan Of Care PT-OP-T Assessment and Plan Start: 02/11/22 08:27 Freq: Status: Active Protocol: Document 04/30/22 09:01 AW (Rec: 04/30/22 09:46 AW [id number]) Physical Therapy Assessment Goals Two Impairment Sit to stand Short Term Goal (STG) Helen will stand from a standard height chair using UE support but without posterior LOB. 03/19/22 - Pt able to stand without UE support but does better with hands on lap. No LOB on single trials. Inconsistent with multiple trials with posterior LOB ~30% of trials. STG Duration 4 weeks Front End Web Designer Goal (LTG) Helen will stand 5x from a standard height chair in 20 seconds or less. 03/19/22 - Pt able to stand 5 times with min support hands on lap in 18 or 16 seconds but has posterior LOB on three reps, lands hard. LTG Duration 8 weeks One Impairment Gait Short Term Goal (STG) Helen will improve her DGI score to 12/ or greater to show reduced risk of falling. 03/19/22 - GOAL MET 08/15. STG Duration 4 weeks Penitentiary Goal (LTG) Helen will ambulate with an appropriate AD for 6 minutes over smooth terrain without LOB or right hip pain. 04/30/22 - Pt is able to walk six minutes but requires frequent cues and near- constant assist to manage 4WW, to clear obstacles, and to maintain balance LTG Duration 8 weeks Progress Towards Goals Progress Towards Goals Progressing Toward Goals,Slow Progress - Other Progress Comments Helen continues to have difficulty standing from a chair without significant retropulsion but improves with cues and attention. Attendance has been limited due to clinic scheduling. While Helen is likely nearing a plateau, she would benefit from continued therapy to improve gait and transfers. PT will continue to work with DIRECTOR REPORT to improve attention and to provide appropriate external cues for safety. Likely to discharge after this extension of plan of care. Assessment Summary Assessment Helen is having a good morning today but does require cues to avoid obstacles - mostly on her left side. Practiced tall kneeling and half-kneeling for improved floor recovery. Physical Therapy Plan Frequency and Duration Frequency of Treatment 2x/Week Duration of Treatment 2 months Plan of Care Start Date 04/23/22 Plan of Care End Date 06/23/22 Next Visit Focus/Plan Next Note Type Treatment Note Next Visit Plan Next balance recovery POC: Gait training with 4WW including obstacle clearance. Practice stopping on cue. Continue floor recovery. Consider balance or other exercise in tall kneeling or half kneeling. Plan of Care Dates Plan of Care Start Date 04/23/22 Plan of Care End Date 06/23/22 Electronically Signed by: Bethany Murillo PT 04/30/22 0953 If you are in agreement with this Plan of Care, please return a signed and dated copy. I have reviewed this Plan of Care and certify that the skilled therapy services above are required to meet the patient?s needs. Physician Signature Date Printed Name and Credentials Clinical Instructor Signature Printed Name and Credentials
--- NOTE | 2022-05-05 11:17 | PT.OTN ---
Current Diagnoses Unsteadiness on feet (05/05/22) Other abnormalities of gait and mobility (05/05/22) Other symptoms and signs involving cognitive functions and awareness (05/05/22) History of falling (05/05/22) Physical Therapy Treatment Note PT-OP-A Visit Information Start: 02/11/22 08:27 Freq: Status: Active Protocol: Document 05/05/22 10:34 AW (Rec: 05/05/22 11:17 AW [id number]) Out-Patient Physical Therapy Visit Information Visit Information Visit Type Discharge Summary Visit Start Time 10:30 Visit Stop Time 11:10 Total Visit Minutes 40 Visit Number 18 Evaluation Information Evaluation Date 02/12/22 PT-OP-B Current Condition Start: 02/11/22 08:27 Freq: Status: Active Protocol: Document 02/19/22 13:44 AMB (Rec: 02/19/22 14:49 AMB [id number]) Current Condition History of Current Condition Onset Date November 2021 Current Complaints Multiple falls, difficulty with overall mobility History of Current Condition Helen (ginny Alexander with an L): attends without AD, but is guarded closely by her daughter Kristin and needs assistance with pathfinding. Neurology on 01/28/22 for memory loss. Pt has gait instability , depression, anxiety, neck pain, insomnia (without REM disorder), BUE tremors. MOCA score of 12/30. Began trial of sinemet. Recommendation for hearing aids. History of tinnitus. Neuropsych in December suggested possible Lewy body dementia Daughter, Kristin lives with pt, pays bills, manages appointments, and cooks. Spouse in 2019 from glioblastoma - increased depression. Likes to sew and do puzzles but has not engaged lately. Kristin is no longer working outside the home due to taking care of her mom, she is concerned about her mom's large 4 year old dog being a balance hazard. Recent falls (daughter reports at least 5 in the last 6 months). Increased functional decline and memory loss. No longer walking dog. Daughter is concerned about sit to stand and then when prompted is also concerned about floor transfer, bed mobility, appropriate assistive device. No stairs in home, but 3 stairs to enter without railings. Does have a shower stool, but pt doesn't think she needs to use it, Kristin reports it can take Helen 1-2 hours to get dressed, but she does do it herself. Prior Functional Status Baseline Function- ADL's Independent Baseline Function- Mobility Independent Current Functional Impairments (Reported) Functional Limitations- ADL's extended time needed for dressing, no longer cooking, driving. Personal Factors Other Personal Factors That May Effect Helen reports R hip pain with Therapy/Recovery walking PT-OP-C Subjective Start: 02/11/22 08:27 Freq: Status: Active Protocol: Document 05/05/22 10:34 AW (Rec: 05/05/22 11:17 AW [id number]) OP-PT Subjective Patient Comments Patient Comments Falls are a regular occurrence but no uptick in frequency. PT-OP-E Functional Tests Start: 02/11/22 08:27 Freq: Status: Active Protocol: Document 02/19/22 14:30 AMB (Rec: 02/19/22 15:40 AMB [id number]) Functional Tests 10 Meter Walk Test Distance 7 Device Used none Comments fast =7 seconds, 10= self selected pace Dynamic Gait Index (DGI) Score 6 DGI Impairment Rating 60 to <80% Impaired (Score 5-9 ) PT-OP-G Mobility & Gait Start: 02/11/22 08:27 Freq: Status: Active Protocol: Document 02/19/22 14:30 AMB (Rec: 02/19/22 15:40 AMB [id number]) OP Mobility Evaluation Transfers Sit to Stand heavy verbal and physical cues for sit to stand- pt usually needs Luda or something to pull on at home per daughter, cued WBOS, feet underneath MONSERRAT , nose over toes to encourage forward lean, pt tends to have post LOB OP Gait Assessment Comments Gait Comments Shuffling gait pattern, does tend to catch toes, not currently using AD, needs CGA/ Luda to prevent LOB Stair Climbing Evaluation Evaluation Level of Assist On Stairs Contact Guard Assistance Devices Stair Climbing Assistive Devices Left Railing,Right Railing Comments Stair Climbing Comments CGA can ascend and descend 4 steps with 2 railings with alternating gait pattern, but needs extra time to really feel where she is placing her feet PT-OP-M Strength Start: 02/11/22 08:27 Freq: Status: Active Protocol: Document 02/19/22 14:30 AMB (Rec: 02/19/22 15:40 AMB [id number]) Hip Strength Hip Manual Muscle Testing Right Flexion (L2) 4+ Good+ Abduction 4 Good Adduction 4 Good Comments tested in seated Left Flexion (L2) 4+ Good+ Abduction 4 Good Adduction 4 Good Comments tested in seated Knee Strength Knee Manual Muscle Testing Right Flexion (S2) 5 Normal Extension (L3) 5 Normal Left Flexion (S2) 5 Normal Extension (L3) 5 Normal Ankle/Foot Strength Ankle and Foot Manual Muscle Testing Right Dorsiflexion (L4) 4 Good Plantarflexion (S1) 4 Good Left Dorsiflexion (L4) 4 Good Plantarflexion (S1) 4 Good PT-OP-Q Treatments Start: 02/11/22 08:27 Freq: Status: Active Protocol: Document 05/05/22 10:34 AW (Rec: 05/05/22 11:17 AW [id number]) Therapeutic Exercises Standing Exercises lunges Standing Exercise Name with railing support Reps/Minutes 10 mini squats Standing Exercise Name with railing support Reps/Minutes 10 sit to stand Standing Exercise Name 10 Comments constant cues 4WW in front march in place Standing Exercise Name march in place Equipment Used 4WW Comments 60 bpm in preparation for gait ; amplitude focus hip extension Standing Exercise Name hip extension Side bilateral Resistance AROM Equipment Used rail for UE support Reps/Minutes 2x10 Comments HEP heel lift Standing Exercise Name heel lift Side bilateral Resistance AROM Equipment Used rail for UE support Reps/Minutes 2x15 Comments HEP Therapeutic Activity Therapeutic Activity floor recovery Name floor recovery Comments down to blue tumbling mat in quadruped > roll to side > up in quadruped > hands on chair > one foot forward > push up to standing. Cues and CGA for all except up to standing which she did with use of chair for support. Simple verbal cues work best. Practiced tall kneeling and half-kneeling with UE movements to improve balance for floor recovery. Best with R knee forward. Gait Training Gait Activity 4WW Description gait with 4WW Device Used 4WW Level of Assistance Luda Surface tile, carpet Distance/Duration 190' Treatment Focus proximity to walker, posture, amplitude Comments With fatigue Helen needed Luda to stop 4WW due to having CoG too far anterior and taking fast steps. Encouraged long, slow steps. Improved steadiness around corners. PT-OP-T Assessment and Plan Start: 02/11/22 08:27 Freq: Status: Active Protocol: Document 05/05/22 10:34 AW (Rec: 05/05/22 11:17 AW [id number]) Physical Therapy Assessment Goals Two Impairment Sit to stand Short Term Goal (STG) Helen will stand from a standard height chair using UE support but without posterior LOB. 03/19/22 - Pt able to stand without UE support but does better with hands on lap. No LOB on single trials. Inconsistent with multiple trials with posterior LOB ~30% of trials. STG Duration 4 weeks Load Tallier Goal (LTG) Helen will stand 5x from a standard height chair in 20 seconds or less. 03/19/22 - Pt able to stand 5 times with min support hands on lap in 18 or 16 seconds but has posterior LOB on three reps, lands hard. LTG Duration 8 weeks One Impairment Gait Short Term Goal (STG) Helen will improve her DGI score to 12/24 or greater to show reduced risk of falling. 03/19/22 - GOAL MET 12/24. STG Duration 4 weeks Halfway Goal (LTG) Helen will ambulate with an appropriate AD for 6 minutes over smooth terrain without LOB or right hip pain. 04/30/22 - Pt is able to walk six minutes but requires frequent cues and near- constant assist to manage 4WW, to clear obstacles, and to maintain balance LTG Duration 8 weeks Assessment Summary Assessment Treatment today focused on floor recovery, gait, and caregiver training for daughter. Daughter is able to assist with transfers and floor recovery and has good, simple cues for gait and all other mobility. Pt and her daughter feel progress has plateaued and are ready for discharge. Encouraged daughter to seek home health therapy in the future to increase saliency and continue caregiving training as needed. Physical Therapy Plan Discharge Physical Therapy Discharge Reasons Plateau in Progress Discharge Comments Pt's cognition makes carryover quite difficult. Pt's daughter is now trained in mobility aspects of caregiving and feels ready to discharge. Pt encouraged to seek home health PT in the future for any needs.
== END 2022-05-06 12:20 ==
LOC: PHYS 10:30
PROVIDERS: Family Provider Physician Assistant; PCP Physician Assistant; Referring Provider Student in an Organized Health Care Education/Training Program; Visit Provider Student in an Organized Health Care Education/Training Program
DX: R26.81 Unsteadiness on feet (principal); R41.89 Other symptoms and signs involving cognitive functions and awareness; Z91.81 History of falling; R26.89 Other abnormalities of gait and mobility
CPT/HCPCS: 97110; 97112; 97116; 97162; 97530; 97535

== ENCOUNTER 2022-05-20 09:30 | Outpatient (RCR) | payer MEDICARE, SELFPAY ==
--- NOTE | 2022-01-29 10:28 | ST.OPIE ---
Visit Care Team Role Provider Type Katia Thomas PA-C Family Provider Non-Staff Primary Care Provider Specialty: Internal Medicine Address: [address] [place] [address], [id number] Email: [email or web address] Mayra Mariscal Attending Provider Non-Staff Referring Provider Specialty: Psychiatry Address: [address] [place], [place] [address], [address] Email: Speech-Language Pathology Initial Evaluation EM[employer]LE [employer] INSTRUCTOR Clinical Swallow Evaluation Start: 01/29/22 09:21 Freq: Status: Active Protocol: Document 01/29/22 10:04 REJI (Rec: 01/29/22 10:27 ZS [id number]) Clinical Swallow Evaluation Session Time Visit Start Time 09:30 Visit Stop Time 10:05 Total Visit Minutes 35 Visit Information Visit Number Initial Evaluation Plan of Care Dates 01/29/2022 - 08/22/2022 Insurance Information Medicare Referral Referring Provider Dr. Mayra Mariscal Reason for Referral Difficulty swallowing, short term memory difficulties, pt gets distracted. Setting Assessment Location Outpatient Care Visit Type Note Type Initial evaluation Next Note Type Next Note Type Treatment Note Patient Information Identification Type Name History Helen is a 71 year old female with a history of IBS and a recent diagnosis (December 2021) of parkinsonisms. She has been experiencing difficulty swallowing recently, with liquid and pills feeling like they get stuck in her mouth or throat. The pt reported coughing episodes when food gets stuck and added that she will sometimes throw up pills that get stuck. Helen stated she has difficulty staying focused on eating and will often have difficulty swallowing when she becomes distracted by environmental things (e.g., dog pressing against her leg, TV, thoughts that come up, etc.). Helen's daughter reported long-term memory is not a concern, but stated Helen has been having more difficulty recalling more recent events. Additional concerns regarding balance were reported by Helen's daughter and observed as Helen got up from her chair to leave the room. Subjective Observations Helen arrived on time accompanied by her daughter, who was present for the session. Helen walked slowly to the room, looking around as she walked and demonstrated difficulty pulling out the chair and sitting down. Helen' s daughter reported Helen used to have excellent balance, but has been more distracted when walking and has had a sharp decline in balance in the past few months. She added Helen had lost about 15-20lbs . in the past few months. Reported by Patient Other Symptoms Difficulty swallowing liquids, Difficulty swallowing pills, Food gets stuck,Weight loss Current Diet Regular,Thin liquids Baseline Feeding Method Independent in self-feeding Objective Assessment Mental Status Alert,Responsive,Cooperative Oral Integrity WFL Dentition Within normal limits Lip Function Within normal limits Observation of Lips at Rest Symmetrical Pucker Within normal limits Lip Retraction Within normal limits Alternating Pucker/Lip Retraction Within normal limits Tongue Function Within normal limits Observations of Tongue at Rest Within normal limits Tongue Protrusion Within normal limits Tongue Retraction Within normal limits Tongue Lateralization Within normal limits Jaw Function Within normal limits Observations of Jaw at Rest Within normal limits Jaw Opening Within normal limits Jaw Closing Within normal limits Hard/Soft Palate Function Within normal limits Observations of Hard/Soft Palate Within normal limits Comment Helen presented with symmetrical structures at rest and in motion. Difficulty observed in understanding directions for a few of the oral motor tasks, but given additional verbal prompts, she followed directions well. Tongue, lips, and jaw strength and ROM were WNL. Dentition was present and WNL. Structure and function of oral mechanism appears WNL for the purposes of speech and swallowing. Food and Liquid Trials Position During Assessment Upright (90 degrees),In chair Liquids Trialed Thin Solids Trialed Puree,Dysphagia Mechanical, Dysphagia Advanced,Mechanical Soft,Regular Administration Type Tea spoon,Cup single sip,Cup consecutive sips,Self-feeding Oral Impairment Within normal limits Oral Phase Comments No anterior loss of bolus. Oral residue observed following trial of applesauce when pt became distracted by conversation, though pt cleared residue with a spontaneous swallow. Mastication was timely and efficient and a/p propulsion appeared WNL. Pharyngeal Impairment Within normal limits Pharyngeal Phase Comments No overt signs or symptoms of aspiration observed and no difficulty reported by the pt. Hyolaryngeal elevation and excursion was mildly reduced but WFL. Fatigue/Endurance Endurance WNL Findings Swallowing Function Within normal limits Severity of Swallow Impairment Within normal limits Contributing Factors to Swallow Reduced alertness or attention Impairment Prognosis Good Based on Cognitive status,Family support,Comorbidities Comment The pt presents with swallow function WNL. Difficulties observed when pt became distracted, which daughter and pt stated is consistent with behavior at home. Will complete cognitive assessment in next session to determine areas of focus for cognitive treatment. Will discuss strategies to reduce distractions and increase attention to task at hand while eating to increase swallow safety. Provided pt education regarding swallow safety and cognitive functions . Discussed possible modified barium swallow study if swallow difficulty continues with implementation of cognitive strategies during meals. Pt and daughter expressed understanding and agreement with treatment plan. Impact on Safety and Functioning No limitations Recommendations Instrumental Assessment No Swallowing Treatment Yes Frequency once a week Duration 45 minutes Recommended Solids Regular Recommended Liquids Thin Safety Precautions/Swallowing Feed only when alert,Reduce Recommendations distractions,Remain upright ( 90 degrees) during all oral intake Medication Recommendations As Tolerated Discharge Recommendations Home Education Patient/Caregiver Education Described results of evaluation,Patient expressed understanding of evaluation, Patient expressed agreement with goals & treatment plans, Family/caregivers expressed understanding of evaluation, Family/caregivers expressed agreement with goals & treatment plans,Patient expressed understanding of safety precautions,Patient expressed understanding of feeding recommendations,Family /caregivers expressed understanding of safety precautions,Family/caregivers expressed understanding of feeding recommendations, Patient requires further education/training,Family/ caregivers require further education/training Goals Short-term Goals 1. The pt will perform safe swallow strategies with oral intake independently to reduce risk of aspiration. 2. The pt will participate in assessment of cognitive function to inform plan of care. Long-term Goals The pt will safely tolerate least restrictive diet to meet her nutrition and hydration needs.
--- NOTE | 2022-01-29 10:28 | ST.OPPOC ---
Physical, Occupational & Speech Therapy At [facility] Visit Care Team Role Provider Type Katia Thomas PA-C Family Provider Non-Staff Primary Care Provider Address: [address] [place] [address], [id number] Mayra Mariscal Attending Provider Non-Staff Referring Provider Address: [address] [place], [place] [address], [address] Speech Pathology Plan of Care Plan of Care Dates 01/29/2022 - 08/22/[address] Mayra Mariscal Patient History Helen is a 71 year old female with a history of IBS and a recent diagnosis (December 2021) of parkinsonisms. She has been experiencing difficulty swallowing recently, with liquid and pills feeling like they get stuck in her mouth or throat. The pt reported coughing episodes when food gets stuck and added that she will sometimes throw up pills that get stuck. Helen stated she has difficulty staying focused on eating and will often have difficulty swallowing when she becomes distracted by environmental things (e.g., dog pressing against her leg, TV, thoughts that come up, etc.). Helen's daughter reported intermediate card tender memory is not a concern, but stated Helen has been having more difficulty recalling more recent events. Additional concerns regarding balance were reported by Helen's daughter and observed as Helen got up from her chair to leave the room. Short-term Goals 1. The pt will perform safe swallow strategies with oral intake independently to reduce risk of aspiration. 2. The pt will participate in assessment of cognitive function to inform plan of care. Long-term Goals The pt will safely tolerate least restrictive diet to meet her nutrition and hydration needs. Comment: Electronically Signed by: LANCE Blackmon 01/29/22 102 If you are in agreement with this Plan of Care, please return a signed and dated copy. I have reviewed this Plan of Care and certify that the skilled therapy services above are required to meet the patient?s needs. Physician Signature Date Printed Name and Credentials Clinical Instructor Signature Printed Name and Credentials
--- NOTE | 2022-02-05 11:55 | ST.OPTN ---
Visit Care Team Role Provider Type Katia Thomas PA-C Family Provider Non-Staff Primary Care Provider Address: [address] [place] [address], [phone] Mayra Mariscal Attending Provider Non-Staff Referring Provider Address: [facility] [place], [address] VOCAL MUSIC INSTRUCTOR Treatment Note VOCAL MUSIC INSTRUCTOR Treatment Note Start: 02/05/22 11:25 Freq: Status: Active Protocol: Document 02/05/22 11:25 ZS (Rec: 02/05/22 11:29 ZS [id number]) Speech Pathology Treatment Note Session Time Visit Start Time 10:35 Visit Stop Time 11:20 Total Visit Minutes 45 Visit Information Visit Number 1 Plan of Care Dates 01/29/2022 - 08/22/2022 Insurance Information Medicare Setting Treatment Setting Outpatient Care Visit Type Note Type Treatment Note Next Note Type Next Note Type Treatment Note General Information Patient History Helen is a 71 year old female with a history of IBS and a recent diagnosis (December 2021) of parkinsonisms. She has been experiencing difficulty swallowing recently, with liquid and pills feeling like they get stuck in her mouth or throat. The pt reported coughing episodes when food gets stuck and added that she will sometimes throw up pills that get stuck. Helen stated she has difficulty staying focused on eating and will often have difficulty swallowing when she becomes distracted by environmental things (e.g., dog pressing against her leg, TV, thoughts that come up, etc.). Helen's daughter reported senior living memory is not a concern, but stated Helen has been having more difficulty recalling more recent events. Additional concerns regarding balance were reported by Helen's daughter and observed as Helen got up from her chair to leave the room. The pt presents with swallow function WNL. Difficulties observed when pt became distracted, which daughter and pt stated is consistent with behavior at home. Subjective Identification Type Name Identification Reconciled With Medical Record Others Present Family Observations/Patient Presentation Helen arrived on time accompanied by her daughter, who was present for the session. Daughter reported Helen received a formal diagnosis of Lewy-Body Dementia last week. Chief Complaint(s) Swallowing,Cognitive Objective Short Term Goals 1. The pt will perform safe swallow strategies with oral intake independently to reduce risk of aspiration. 2. The pt will participate in assessment of cognitive function to inform plan of care. Fci Goals The pt will safely tolerate least restrictive diet to meet her nutrition and hydration needs. Treatment Activities Completed Cognitive Linguistic Quick Test (CLQT) to assess cognitive function. Discussed strategies to minimize distractions and focus attention while eating. Assessment Impairments Identified Cognitive communication, Swallow Assessment of Improvement Results of the CLQT place Helen's composite severity rating in the mild range, with borderline normal attention skills, executive functions and visuospatial skills WNL, mildly impaired clock drawing, and moderately impaired memory and language skills. Difficulty with recalling current age, drawing the hands of the clock, and significant impairment noted in recalling information during testing. Story retell was significantly impaired as well as recalling information while answering questions. Helen asked the same question during the design generation task x3 in the span of about 2.5 minutes and requested repetitions of directions for the design memory and mazes tasks. Difficulty observed with attention during symbol trails task, where Helen stated oh, I'm supposed to be alternating as she kalpana lines between the same shapes. Helen connected a variety of shapes together, generally keeping to the original directions, though she connected several shapes together rather than creating one trail through the shapes. Reviewed with Patient Goals,Home Exercise Program Patient/Caregiver Understanding Good Plan Amount of Therapy Recommended 6 Months Frequency of Treatment Once a Week Length of Session 45 Minutes Therapeutic Contents Cognitive-Linguistic Training, Swallowing/Feeding Provided Patient/Caregiver Instruction Home Exercise Program,Plan of Care,Questions/Concerns Therapy Recommendations Continue with Current Program
--- NOTE | 2022-02-11 15:52 | ST.OPTN ---
Visit Care Team Role Provider Type Katia Thomas PA-C Family Provider Non-Staff Primary Care Provider Address: [address] [place] [address], [id number] Mayra Mariscal Attending Provider Non-Staff Referring Provider Address: [facility] [place], [address] HEMATOLOGY SPECIALIST Treatment Note HEMATOLOGY SPECIALIST Treatment Note Start: 02/05/22 11:25 Freq: Status: Active Protocol: Document 02/11/22 14:25 ZS (Rec: 02/11/22 14:34 ZS [id number]) Speech Pathology Treatment Note Session Time Visit Start Time 13:35 Visit Stop Time 14:25 Total Visit Minutes 50 Visit Information Visit Number 2 Plan of Care Dates 01/29/2022 - 08/22/2022 Insurance Information Medicare Setting Treatment Setting Outpatient Care Visit Type Note Type Treatment Note Next Note Type Next Note Type Treatment Note General Information Patient History Helen is a 71 year old female with a history of IBS and a recent diagnosis (December 2021) of parkinsonisms. She has been experiencing difficulty swallowing recently, with liquid and pills feeling like they get stuck in her mouth or throat. The pt reported coughing episodes when food gets stuck and added that she will sometimes throw up pills that get stuck. Helen stated she has difficulty staying focused on eating and will often have difficulty swallowing when she becomes distracted by environmental things (e.g., dog pressing against her leg, TV, thoughts that come up, etc.). Helen's daughter reported detention memory is not a concern, but stated Helen has been having more difficulty recalling more recent events. Additional concerns regarding balance were reported by Helen's daughter and observed as Helen got up from her chair to leave the room. The pt presents with swallow function WNL. Difficulties observed when pt became distracted, which daughter and pt stated is consistent with behavior at home. Subjective Identification Type Name Identification Reconciled With Medical Record Others Present Family Observations/Patient Presentation Helen arrived late accompanied by her daughter, who was present for the session. Chief Complaint(s) Swallowing,Cognitive Objective Short Term Goals 1. The pt will perform safe swallow strategies with oral intake independently to reduce risk of aspiration. 2. The pt will participate in assessment of cognitive function to inform plan of care. Television Audio Engineer Goals The pt will safely tolerate least restrictive diet to meet her nutrition and hydration needs. Treatment Activities Discussed strategies to minimize distractions while eating. Discussed results of CLQT. Discussed memory notebook and use of calenders to help increase memory. Discussed narrating actions to minimize multitasking. Assessment Impairments Identified Cognitive communication, Swallow Assessment of Improvement Helen stated she has a memory notebook but forgets to write in it. Family to try sitting down to write in their respective notebooks at the same time. Memory notebook to include calendar to help reduce anxiety when she wakes up wondering about appointment times. Provided patient education regarding cognitive skills involved in current hobbies and multitasking. Pt to narrate what she is doing to reduce multitasking for increased attention to task for increased stability. Attempted 1-back game and pt became confused when naming 1- back number of card as she was subtracting 1 from the top card instead. Increased success with naming color of card. Reviewed with Patient Goals,Home Exercise Program Patient/Caregiver Understanding Good Plan Amount of Therapy Recommended 6 Months Frequency of Treatment Once a Week Length of Session 45 Minutes Therapeutic Contents Cognitive-Linguistic Training, Swallowing/Feeding Provided Patient/Caregiver Instruction Home Exercise Program,Plan of Care,Questions/Concerns Therapy Recommendations Continue with Current Program
--- NOTE | 2022-02-24 14:26 | ST.OPTN ---
Visit Care Team Role Provider Type Katia Thomas PA-C Family Provider Non-Staff Primary Care Provider Address: [address] [place] [address], [id number] Mayra Mariscal Attending Provider Non-Staff Referring Provider Address: [facility] [place], [address] CONFIGURATION MANAGEMENT CONSULTANT Treatment Note CONFIGURATION MANAGEMENT CONSULTANT Treatment Note Start: 02/05/22 11:25 Freq: Status: Active Protocol: Document 02/24/22 14:23 ZS (Rec: 02/24/22 14:26 ZS [id number]) Speech Pathology Treatment Note Session Time Visit Start Time 13:40 Visit Stop Time 14:20 Total Visit Minutes 40 Visit Information Visit Number 3 Plan of Care Dates 01/29/2022 - 08/22/2022 Insurance Information Medicare Setting Treatment Setting Outpatient Care Visit Type Note Type Treatment Note Next Note Type Next Note Type Treatment Note General Information Patient History Helen is a 71 year old female with a history of IBS and a recent diagnosis (December 2021) of parkinsonisms. She has been experiencing difficulty swallowing recently, with liquid and pills feeling like they get stuck in her mouth or throat. The pt reported coughing episodes when food gets stuck and added that she will sometimes throw up pills that get stuck. Helen stated she has difficulty staying focused on eating and will often have difficulty swallowing when she becomes distracted by environmental things (e.g., dog pressing against her leg, TV, thoughts that come up, etc.). Helen's daughter reported shelter memory is not a concern, but stated Helen has been having more difficulty recalling more recent events. Additional concerns regarding balance were reported by Helen's daughter and observed as Helen got up from her chair to leave the room. The pt presents with swallow function WNL. Difficulties observed when pt became distracted, which daughter and pt stated is consistent with behavior at home. Subjective Identification Type Name Identification Reconciled With Medical Record Others Present Family Observations/Patient Presentation Helen arrived late accompanied by her daughter, who was present for the session. Chief Complaint(s) Swallowing,Cognitive Objective Short Term Goals 1. The pt will perform safe swallow strategies with oral intake independently to reduce risk of aspiration. 2. The pt will participate in assessment of cognitive function to inform plan of care. Counter Professional Goals The pt will safely tolerate least restrictive diet to meet her nutrition and hydration needs. Treatment Activities Discussed strategies for increased success with making choices. Discussed memory notebook and use of calenders to help increase memory. Discussed narrating actions to minimize multitasking. Assessment Impairments Identified Cognitive communication, Swallow Assessment of Improvement Helen stated she has a memory notebook but does not like to write in it. Family to try visualization techniques and narration to increase memory rather than using notebook. Provided patient education regarding cognitive skills involved in current hobbies and multitasking. Discussed making choices and ways to reduce difficulty with this task (e.g., limiting choices). Pt to narrate what she is doing to reduce multitasking for increased attention to task for increased stability. Reviewed with Patient Goals,Home Exercise Program Patient/Caregiver Understanding Good Plan Amount of Therapy Recommended 6 Months Frequency of Treatment Once a Week Length of Session 45 Minutes Therapeutic Contents Cognitive-Linguistic Training, Swallowing/Feeding Provided Patient/Caregiver Instruction Home Exercise Program,Plan of Care,Questions/Concerns Therapy Recommendations Continue with Current Program
--- NOTE | 2022-03-04 11:28 | ST.OPTN ---
Visit Care Team Role Provider Type Katia Thomas PA-C Family Provider Non-Staff Primary Care Provider Address: [address] [place] [address], [id number] Mayra Mariscal Attending Provider Non-Staff Referring Provider Address: [facility] [place], [address] TEACHER HEARING IMPAIRED Treatment Note TEACHER HEARING IMPAIRED Treatment Note Start: 02/05/22 11:25 Freq: Status: Active Protocol: Document 03/04/22 11:22 ZS (Rec: 03/04/22 11:28 ZS [id number]) Speech Pathology Treatment Note Session Time Visit Start Time 10:30 Visit Stop Time 11:20 Total Visit Minutes 50 Visit Information Visit Number 4 Plan of Care Dates 01/29/2022 - 08/22/2022 Insurance Information Medicare Setting Treatment Setting Outpatient Care Visit Type Note Type Treatment Note Next Note Type Next Note Type Treatment Note General Information Patient History Helen is a 71 year old female with a history of IBS and a recent diagnosis (December 2021) of parkinsonisms. She has been experiencing difficulty swallowing recently, with liquid and pills feeling like they get stuck in her mouth or throat. The pt reported coughing episodes when food gets stuck and added that she will sometimes throw up pills that get stuck. Helen stated she has difficulty staying focused on eating and will often have difficulty swallowing when she becomes distracted by environmental things (e.g., dog pressing against her leg, TV, thoughts that come up, etc.). Helen's daughter reported skilled nursing memory is not a concern, but stated Helen has been having more difficulty recalling more recent events. Additional concerns regarding balance were reported by Helen's daughter and observed as Helen got up from her chair to leave the room. The pt presents with swallow function WNL. Difficulties observed when pt became distracted, which daughter and pt stated is consistent with behavior at home. Subjective Identification Type Name Identification Reconciled With Medical Record Others Present Family Observations/Patient Presentation Helen arrived on time accompanied by her daughter, who was present for the session. Daughter reported they have had several events happen this week and have not had a chance to incorporate home practice into their schedule yet. Daughter shared concerns for safety with her mother having difficulty recalling instructions and attempting to do activities she is not safely able to do independently. Chief Complaint(s) Swallowing,Cognitive Objective Short Term Goals 1. The pt will perform safe swallow strategies with oral intake independently to reduce risk of aspiration. 2. The pt will participate in assessment of cognitive function to inform plan of care. Tactical Response Group Officer Goals The pt will safely tolerate least restrictive diet to meet her nutrition and hydration needs. Treatment Activities Discussed narrating actions to minimize multitasking. Discussed use of written signs /notes on objects or shirt ( with safety pins) to help remember directions and things to do. Discussed physical barriers (e.g., gate at the bottom of the stairs, bells on doors) if safety becomes a bigger concern despite strategy implementation. Discussed external strategies for referencing commonly used phone numbers. Played 1-back to target attention and memory . Assessment Impairments Identified Cognitive communication, Swallow Assessment of Improvement Family to try narration and written signs/notes to increase memory and following directions. Provided patient education regarding cognitive skills involved in 1-back game . Helen observed to make errors based on visual similarity (e.g., saying 8 instead of Q or 9 instead of 6) or numerical similarity (e.g., 5 instead of 4). Discussed making choices and ways to reduce difficulty with this task (e.g ., limiting choices). Pt to narrate what she is doing to reduce multitasking for increased attention to task for increased stability. Reviewed with Patient Goals,Home Exercise Program Patient/Caregiver Understanding Good Plan Amount of Therapy Recommended 6 Months Frequency of Treatment Once a Week Length of Session 45 Minutes Therapeutic Contents Cognitive-Linguistic Training, Swallowing/Feeding Provided Patient/Caregiver Instruction Home Exercise Program,Plan of Care,Questions/Concerns Therapy Recommendations Continue with Current Program
--- NOTE | 2022-03-11 11:24 | ST.OPTN ---
Visit Care Team Role Provider Type Katia Thomas PA-C Family Provider Non-Staff Primary Care Provider Address: [address] [place] [address], [id number] Mayra Mariscal Attending Provider Non-Staff Referring Provider Address: [facility] [place] [facility] [place], [address] FARM OPERATOR Treatment Note FARM OPERATOR Treatment Note Start: 02/05/22 11:25 Freq: Status: Active Protocol: Document 03/11/22 11:19 ZS (Rec: 03/11/22 11:24 ZS [id number]) Speech Pathology Treatment Note Session Time Visit Start Time 10:30 Visit Stop Time 11:20 Total Visit Minutes 50 Visit Information Visit Number 5 Plan of Care Dates 01/29/2022 - 08/22/2022 Insurance Information Medicare Setting Treatment Setting Outpatient Care Visit Type Note Type Treatment Note Next Note Type Next Note Type Treatment Note General Information Patient History Helen is a 71 year old female with a history of IBS and a recent diagnosis (December 2021) of parkinsonisms. She has been experiencing difficulty swallowing recently, with liquid and pills feeling like they get stuck in her mouth or throat. The pt reported coughing episodes when food gets stuck and added that she will sometimes throw up pills that get stuck. Helen stated she has difficulty staying focused on eating and will often have difficulty swallowing when she becomes distracted by environmental things (e.g., dog pressing against her leg, TV, thoughts that come up, etc.). Helen's daughter reported longterm memory is not a concern, but stated Helen has been having more difficulty recalling more recent events. Additional concerns regarding balance were reported by Helen's daughter and observed as Helen got up from her chair to leave the room. The pt presents with swallow function WNL. Difficulties observed when pt became distracted, which daughter and pt stated is consistent with behavior at home. Subjective Identification Type Name Identification Reconciled With Medical Record Others Present Family Observations/Patient Presentation Helen arrived on time accompanied by her daughter, who was present for the session. Daughter reported decreased memory over the past week with difficulty remembering who is alive and in the family. Daughter added she is providing more verbal reminders for Helen when they are walking. She stated Helen continues to move through barricades, though is slowed down, which provides time for daughter to intervene . Chief Complaint(s) Swallowing,Cognitive Objective Short Term Goals 1. The pt will perform safe swallow strategies with oral intake independently to reduce risk of aspiration. 2. The pt will participate in assessment of cognitive function to inform plan of care. Form Raiser Goals The pt will safely tolerate least restrictive diet to meet her nutrition and hydration needs. Treatment Activities Discussed photo memory book as external tool for recall of family members and information about them. Discussed simple written signs/notes on objects to help remember directions. Discussed physical barriers (e .g., gate at the bottom of the stairs, bells on doors) if safety becomes a bigger concern despite strategy implementation. Discussed support and provided education regarding prognosis. Assessment Impairments Identified Cognitive communication, Swallow Assessment of Improvement Family to try simple written signs in addition to barricades to increase safety at home. Discussed online games to help with memory and provided examples of options. Family to create memory photo book for external support in recalling family members. Discussed increased support in care of Helen as memory continues to decrease. Reviewed with Patient Goals,Home Exercise Program Patient/Caregiver Understanding Good Plan Amount of Therapy Recommended 6 Months Frequency of Treatment Once a Week Length of Session 45 Minutes Therapeutic Contents Cognitive-Linguistic Training, Swallowing/Feeding Provided Patient/Caregiver Instruction Home Exercise Program,Plan of Care,Questions/Concerns Therapy Recommendations Continue with Current Program
--- NOTE | 2022-03-18 14:20 | ST.OPTN ---
Visit Care Team Role Provider Type Katia Thomas PA-C Family Provider Non-Staff Primary Care Provider Address: [address] [place] [address], [id number] Mayra Mariscal Attending Provider Non-Staff Referring Provider Address: [facility] [place], [address] ARCHITECTURE INSTRUCTOR Treatment Note ARCHITECTURE INSTRUCTOR Treatment Note Start: 02/05/22 11:25 Freq: Status: Active Protocol: Document 03/18/22 14:14 ZS (Rec: 03/18/22 14:19 ZS [id number]) Speech Pathology Treatment Note Session Time Visit Start Time 10:30 Visit Stop Time 11:15 Total Visit Minutes 45 Visit Information Visit Number 6 Plan of Care Dates 01/29/2022 - 08/22/2022 Insurance Information Medicare Setting Treatment Setting Outpatient Care Visit Type Note Type Treatment Note Next Note Type Next Note Type Treatment Note General Information Patient History Helen is a 71 year old female with a history of IBS and a recent diagnosis (December 2021) of parkinsonisms. She has been experiencing difficulty swallowing recently, with liquid and pills feeling like they get stuck in her mouth or throat. The pt reported coughing episodes when food gets stuck and added that she will sometimes throw up pills that get stuck. Helen stated she has difficulty staying focused on eating and will often have difficulty swallowing when she becomes distracted by environmental things (e.g., dog pressing against her leg, TV, thoughts that come up, etc.). Helen's daughter reported chcf memory is not a concern, but stated Helen has been having more difficulty recalling more recent events. Additional concerns regarding balance were reported by Helen's daughter and observed as Helen got up from her chair to leave the room. The pt presents with swallow function WNL. Difficulties observed when pt became distracted, which daughter and pt stated is consistent with behavior at home. Subjective Identification Type Name Identification Reconciled With Medical Record Others Present Family Observations/Patient Presentation Helen arrived on time accompanied by her daughter, who was present for the session. Daughter reported she is providing more verbal reminders for Helen when they are walking. She stated Helen continues to move through barricades, though is slowed down and there are bells on doors to help alert daughter when Helen is leaving the house, which provides time for daughter to intervene. Daughter stated they are still in the process of moving the dog ([place]vett) to [place] and that will help with several challenges they are currently experiencing at home. Chief Complaint(s) Swallowing,Cognitive Objective Short Term Goals 1. The pt will perform safe swallow strategies with oral intake independently to reduce risk of aspiration. 2. The pt will participate in assessment of cognitive function to inform plan of care. Milk Processing Worker Goals The pt will safely tolerate least restrictive diet to meet her nutrition and hydration needs. Treatment Activities Discussed photo memory book as external tool for recall of family members and information about them. Discussed AAC for helping with cues while using walker. Discussed use of paint by number/sticker as alternative craft since current crafts are not engaging. Discussed chore list for activities Helen can help with at home that do not put her at risk for safety. Assessment Impairments Identified Cognitive communication, Swallow Assessment of Improvement Family to try simple written signs in addition to barricades to increase safety at home. Family to consider chore list for Lanne-safe activities as alternatives to chores involving bending or lifting and pose a safety risk . Discussed online games to help with memory and provided examples of options. Family to create memory photo book for external support in recalling family members. Reviewed with Patient Goals,Home Exercise Program Patient/Caregiver Understanding Good Plan Amount of Therapy Recommended 6 Months Frequency of Treatment Once a Week Length of Session 45 Minutes Therapeutic Contents Cognitive-Linguistic Training, Swallowing/Feeding Provided Patient/Caregiver Instruction Home Exercise Program,Plan of Care,Questions/Concerns Therapy Recommendations Continue with Current Program
--- NOTE | 2022-03-25 11:34 | ST.OPTN ---
Visit Care Team Role Provider Type Katia Thomas PA-C Family Provider Non-Staff Primary Care Provider Address: [address] [place] [address], [id number] Mayra Mariscal Attending Provider Non-Staff Referring Provider Address: [facility] [place], [address] SALES AND MARKETING AGENT Treatment Note SALES AND MARKETING AGENT Treatment Note Start: 02/05/22 11:25 Freq: Status: Active Protocol: Document 03/25/22 11:28 ZS (Rec: 03/25/22 11:34 ZS [id number]) Speech Pathology Treatment Note Session Time Visit Start Time 10:30 Visit Stop Time 11:20 Total Visit Minutes 50 Visit Information Visit Number 7 Plan of Care Dates 01/29/2022 - 08/22/2022 Insurance Information Medicare Setting Treatment Setting Outpatient Care Visit Type Note Type Treatment Note Next Note Type Next Note Type Treatment Note General Information Patient History Helen is a 71 year old female with a history of IBS and a recent diagnosis (December 2021) of parkinsonisms. She has been experiencing difficulty swallowing recently, with liquid and pills feeling like they get stuck in her mouth or throat. The pt reported coughing episodes when food gets stuck and added that she will sometimes throw up pills that get stuck. Helen stated she has difficulty staying focused on eating and will often have difficulty swallowing when she becomes distracted by environmental things (e.g., dog pressing against her leg, TV, thoughts that come up, etc.). Helen's daughter reported nursing home memory is not a concern, but stated Helen has been having more difficulty recalling more recent events. Additional concerns regarding balance were reported by Helen's daughter and observed as Helen got up from her chair to leave the room. The pt presents with swallow function WNL. Difficulties observed when pt became distracted, which daughter and pt stated is consistent with behavior at home. Subjective Identification Type Name Identification Reconciled With Medical Record Others Present Family Observations/Patient Presentation Helen arrived on time accompanied by her daughter, who was present for the session. Daughter reported continued difficulty with redirecting when Helen is trying to help in ways that are not safe (e.g., picking up dog hair). Daughter added they are anticipating needing help with toileting at some point and inquired about what support around that might look like in terms of providers. Daughter reported Helen's friends are not currently aware of her diagnosis and Helen and daughter are going to talk to decide what support they would like in notifying friends and family. Chief Complaint(s) Swallowing,Cognitive Objective Short Term Goals 1. The pt will perform safe swallow strategies with oral intake independently to reduce risk of aspiration. 2. The pt will participate in assessment of cognitive function to inform plan of care. Last Puller Goals The pt will safely tolerate least restrictive diet to meet her nutrition and hydration needs. Treatment Activities Discussed photo memory book as external tool for recall of family members and information about them. Provided AAC for helping with cues while using walker. Discussed chore list for activities Helen can help with at home that do not put her at risk for safety. Discussed FAQ handout, what support looks like, and ways clinician can provide support in notifying friends and family of diagnosis. Discussed support options for toileting and provided education on role of SALES AND MARKETING AGENT, PT, and basketball coach/ counselor. Assessment Impairments Identified Cognitive communication, Swallow Assessment of Improvement Family to discuss what support looks like from clinician with regards to notifying friends and family of diagnosis. Family to try narration to focus mind when making decisions. Reviewed with Patient Goals,Home Exercise Program Patient/Caregiver Understanding Good Plan Amount of Therapy Recommended 6 Months Frequency of Treatment Once a Week Length of Session 45 Minutes Therapeutic Contents Cognitive-Linguistic Training, Swallowing/Feeding Provided Patient/Caregiver Instruction Home Exercise Program,Plan of Care,Questions/Concerns Therapy Recommendations Continue with Current Program
--- NOTE | 2022-04-01 14:23 | ST.OPTN ---
Visit Care Team Role Provider Type Katia Thomas PA-C Family Provider Non-Staff Primary Care Provider Address: [address] [place] [address], [id number] Mayra Mariscal Attending Provider Non-Staff Referring Provider Address: [facility] [place], [address] TRAVEL MONEY ADVISOR Treatment Note TRAVEL MONEY ADVISOR Treatment Note Start: 02/05/22 11:25 Freq: Status: Active Protocol: Document 04/01/22 14:19 ZS (Rec: 04/01/22 14:23 ZS [id number]) Speech Pathology Treatment Note Session Time Visit Start Time 13:30 Visit Stop Time 14:15 Total Visit Minutes 45 Visit Information Visit Number 8 Plan of Care Dates 01/29/2022 - 08/22/2022 Insurance Information Medicare Setting Treatment Setting Outpatient Care Visit Type Note Type Treatment Note Next Note Type Next Note Type Treatment Note General Information Patient History Helen is a 71 year old female with a history of IBS and a recent diagnosis (December 2021) of parkinsonisms. She has been experiencing difficulty swallowing recently, with liquid and pills feeling like they get stuck in her mouth or throat. The pt reported coughing episodes when food gets stuck and added that she will sometimes throw up pills that get stuck. Helen stated she has difficulty staying focused on eating and will often have difficulty swallowing when she becomes distracted by environmental things (e.g., dog pressing against her leg, TV, thoughts that come up, etc.). Helen's daughter reported mcfp memory is not a concern, but stated Helen has been having more difficulty recalling more recent events. Additional concerns regarding balance were reported by Helen's daughter and observed as Helen got up from her chair to leave the room. The pt presents with swallow function WNL. Difficulties observed when pt became distracted, which daughter and pt stated is consistent with behavior at home. Subjective Identification Type Name Identification Reconciled With Medical Record Others Present Family Observations/Patient Presentation Helen arrived on time accompanied by her daughter, who was present for the session. Daughter reported continued difficulty with redirecting when Helen is trying to help in ways that are not safe (e.g., picking up dog hair). Chief Complaint(s) Swallowing,Cognitive Objective Short Term Goals 1. The pt will perform safe swallow strategies with oral intake independently to reduce risk of aspiration. 2. The pt will participate in assessment of cognitive function to inform plan of care. Half-Way Goals The pt will safely tolerate least restrictive diet to meet her nutrition and hydration needs. Treatment Activities Discussed photo memory book as external tool for recall of family members and information about them. Discussed possible hobbies to increase break time from each other to ease tension. Discussed finding phrases that are not triggering frustration when pt is participating in behaviors with safety risks. Discussed providing support in notifying friends and family of diagnosis. Assessment Impairments Identified Cognitive communication, Swallow Assessment of Improvement Family to discuss what support looks like from clinician with regards to notifying friends and family of diagnosis. Family to try a variety of hobbies so daughter can work and pt can be engaged in task and not lost in her head. Family to come up with phrases to reduce frustration. Reviewed with Patient Goals,Home Exercise Program Patient/Caregiver Understanding Good Plan Amount of Therapy Recommended 6 Months Frequency of Treatment Once a Week Length of Session 45 Minutes Therapeutic Contents Cognitive-Linguistic Training, Swallowing/Feeding Provided Patient/Caregiver Instruction Home Exercise Program,Plan of Care,Questions/Concerns Therapy Recommendations Continue with Current Program
--- NOTE | 2022-04-08 11:19 | ST.OPTN ---
Visit Care Team Role Provider Type Katia Thomas PA-C Family Provider Non-Staff Primary Care Provider Address: [address] [place] [address], [id number] Mayra Mariscal Attending Provider Non-Staff Referring Provider Address: [facility] [place], [address] ROUSTABOUT HEAD Treatment Note ROUSTABOUT HEAD Treatment Note Start: 02/05/22 11:25 Freq: Status: Active Protocol: Document 04/08/22 11:13 ZS (Rec: 04/08/22 11:19 ZS [id number]) Speech Pathology Treatment Note Session Time Visit Start Time 10:30 Visit Stop Time 11:15 Total Visit Minutes 45 Visit Information Visit Number 9 Plan of Care Dates 01/29/2022 - 08/22/2022 Insurance Information Medicare Setting Treatment Setting Outpatient Care Visit Type Note Type Treatment Note Next Note Type Next Note Type Progress Note General Information Patient History Helen is a 71 year old female with a history of IBS and a recent diagnosis (December 2021) of parkinsonisms. She has been experiencing difficulty swallowing recently, with liquid and pills feeling like they get stuck in her mouth or throat. The pt reported coughing episodes when food gets stuck and added that she will sometimes throw up pills that get stuck. Helen stated she has difficulty staying focused on eating and will often have difficulty swallowing when she becomes distracted by environmental things (e.g., dog pressing against her leg, TV, thoughts that come up, etc.). Helen's daughter reported jail memory is not a concern, but stated Helen has been having more difficulty recalling more recent events. Additional concerns regarding balance were reported by Helen's daughter and observed as Helen got up from her chair to leave the room. The pt presents with swallow function WNL. Difficulties observed when pt became distracted, which daughter and pt stated is consistent with behavior at home. Subjective Identification Type Name Identification Reconciled With Medical Record Others Present Family Observations/Patient Presentation Helen arrived on time accompanied by her daughter, who was present for the session. Daughter reported this week went better and family dog (Swati) moves to [place] on Wednesday, assuming weather cooperates. Chief Complaint(s) Swallowing,Cognitive Objective Short Term Goals 1. The pt will perform safe swallow strategies with oral intake independently to reduce risk of aspiration. 2. The pt will participate in assessment of cognitive function to inform plan of care. Senior Living Goals The pt will safely tolerate least restrictive diet to meet her nutrition and hydration needs. Treatment Activities Discussed use of journal in the morning to help reduce distractions by thoughts as Helen gets ready for her day. Discussed burning/shredding paper to reduce privacy concerns. Discussed re-framing use of walker from embarrassing to independent to decrease stress/anxiety/ embarrassment when using walker . Discussed providing support in notifying friends and family of diagnosis. Helen's daughter is in the process of getting respite or in-home care support. Assessment Impairments Identified Cognitive communication, Swallow Assessment of Improvement Will continue to ask about support in talking to family/ friends about diagnosis as Helen indicated that would be helpful. Helen completed a puzzle, though daughter reported confusion during puzzle completion and support required for this activity. Helen expressed agreement in re-framing use of walker as facilitating independence rather than embarrassing to encourage walker use and open options for outdoor activities . Helen to try journaling in the morning to reduce quantity of distracting thoughts while she is getting ready. Reviewed with Patient Goals,Home Exercise Program Patient/Caregiver Understanding Good Plan Amount of Therapy Recommended 6 Months Frequency of Treatment Once a Week Length of Session 45 Minutes Therapeutic Contents Cognitive-Linguistic Training, Swallowing/Feeding Provided Patient/Caregiver Instruction Home Exercise Program,Plan of Care,Questions/Concerns Therapy Recommendations Continue with Current Program
--- NOTE | 2022-04-22 14:30 | ST.OPTN ---
Visit Care Team Role Provider Type Katia Thomas PA-C Family Provider Non-Staff Primary Care Provider Address: [address] [place] [address], [phone] Mayra Mariscal Attending Provider Non-Staff Referring Provider Address: [facility] [place], [address] AUTOMATIC DOOR MECHANIC Treatment Note AUTOMATIC DOOR MECHANIC Treatment Note Start: 02/05/22 11:25 Freq: Status: Active Protocol: Document 04/22/22 14:30 ZS (Rec: 04/29/22 13:52 ZS [id number]) Speech Pathology Treatment Note Session Time Visit Start Time 13:30 Visit Stop Time 14:15 Total Visit Minutes 45 Visit Information Visit Number 10 Plan of Care Dates 01/29/2022 - 08/22/2022 Insurance Information Medicare Setting Treatment Setting Outpatient Care Visit Type Note Type Treatment Note Next Note Type Next Note Type Treatment Note General Information Patient History Helen is a 71 year old female with a history of IBS and a recent diagnosis (December 2021) of parkinsonisms. She has been experiencing difficulty swallowing recently, with liquid and pills feeling like they get stuck in her mouth or throat. The pt reported coughing episodes when food gets stuck and added that she will sometimes throw up pills that get stuck. Helen stated she has difficulty staying focused on eating and will often have difficulty swallowing when she becomes distracted by environmental things (e.g., dog pressing against her leg, TV, thoughts that come up, etc.). Helen's daughter reported detention memory is not a concern, but stated Helen has been having more difficulty recalling more recent events. Additional concerns regarding balance were reported by Helen's daughter and observed as Helen got up from her chair to leave the room. The pt presents with swallow function WNL. Difficulties observed when pt became distracted, which daughter and pt stated is consistent with behavior at home. Subjective Identification Type Name Identification Reconciled With Medical Record Others Present Family Observations/Patient Presentation Helen arrived on time accompanied by her daughter, who was present for the session. Daughter reported family dog (Swati) moved to [place]. Chief Complaint(s) Swallowing,Cognitive Objective Short Term Goals 1. The pt will perform safe swallow strategies with oral intake independently to reduce risk of aspiration. 2. The pt will participate in assessment of cognitive function to inform plan of care. Senior Care Goals [facility] Children's Therapy Program Treatment Activities Discussed re-framing use of walker from embarrassing to independent to decrease stress/anxiety/embarrassment when using walker. Discussed verbiage when talking to friends to share information but not spend lots of time talking about current health issues. Assessment Impairments Identified Cognitive communication, Swallow Assessment of Improvement Helen expressed agreement in re-framing use of walker as facilitating independence rather than embarrassing to encourage walker use and open options for outdoor activities . She expressed interest in speaking to her friends using verbiage discussed in session. Discussed pivot of previous hobbies to engage without feeling deficits. Reviewed with Patient Goals,Home Exercise Program Patient/Caregiver Understanding Good Plan Amount of Therapy Recommended 6 Months Frequency of Treatment Once a Week Length of Session 45 Minutes Therapeutic Contents Cognitive-Linguistic Training, Swallowing/Feeding Provided Patient/Caregiver Instruction Home Exercise Program,Plan of Care,Questions/Concerns Therapy Recommendations Continue with Current Program
--- NOTE | 2022-04-29 10:27 | ST.OPTN ---
Visit Care Team Role Provider Type Katia Thomas PA-C Family Provider Non-Staff Primary Care Provider Address: [address] [place] [address], [id number] Mayra Mariscal Attending Provider Non-Staff Referring Provider Address: [facility] [place], [address] FINAL INSPECTOR SHUTTLE Treatment Note FINAL INSPECTOR SHUTTLE Treatment Note Start: 02/05/22 11:25 Freq: Status: Active Protocol: Document 04/29/22 10:19 ZS (Rec: 04/29/22 10:27 ZS [id number]) Speech Pathology Treatment Note Session Time Visit Start Time 09:30 Visit Stop Time 10:15 Total Visit Minutes 45 Visit Information Visit Number 10 Plan of Care Dates 01/29/2022 - 08/22/2022 Insurance Information Medicare Setting Treatment Setting Outpatient Care Visit Type Note Type Progress Note Next Note Type Next Note Type Treatment Note General Information Patient History Helen is a 71 year old female with a history of IBS and a recent diagnosis (December 2021) of parkinsonisms. She has been experiencing difficulty swallowing recently, with liquid and pills feeling like they get stuck in her mouth or throat. The pt reported coughing episodes when food gets stuck and added that she will sometimes throw up pills that get stuck. Helen stated she has difficulty staying focused on eating and will often have difficulty swallowing when she becomes distracted by environmental things (e.g., dog pressing against her leg, TV, thoughts that come up, etc.). Helen's daughter reported halfway memory is not a concern, but stated Helen has been having more difficulty recalling more recent events. Additional concerns regarding balance were reported by Helen's daughter and observed as Helen got up from her chair to leave the room. The pt presents with swallow function WNL. Difficulties observed when pt became distracted, which daughter and pt stated is consistent with behavior at home. Subjective Identification Type Name Identification Reconciled With Medical Record Others Present Family Observations/Patient Presentation Helen arrived on time accompanied by her daughter, who was present for the session. Daughter reported family dog (Swati) moved to [place]. Chief Complaint(s) Swallowing,Cognitive Objective Short Term Goals 1. The pt will perform safe swallow strategies with oral intake independently to reduce risk of aspiration. - No longer of concern at this time . Discontinue goal. 2. The pt will participate in assessment of cognitive function to inform plan of care. - Goal met. Discharge goal. NEW GOALS: 1. The pt will implement external strategies to improve safety in moving around the house. 2. The pt will implement external strategies to increase social engagement in hobbies and with friends, as reported by pt and daughter. Tower Truck Driver Goals The pt will engage in ADLs safely and report increased engagement in hobbies/social events. Treatment Activities Discussed re-framing use of walker from embarrassing to independent to decrease stress/anxiety/embarrassment when using walker. Discussed trying walker in social situations to see if she gets negative attention. Discussed re-framing things as being helpful as Helen enjoys being supportive/helpful/ conscientious. Helen reported she got together with 2 of her friends and it went well. Helen's daughter is in the process of getting respite or in-home care support. Assessment Impairments Identified Cognitive communication, Swallow Assessment of Improvement Progress is difficult due to impaired short-term memory that negatively impacts implementation of strategies and reporting of strategy success. Daughter has been implementing strategies and reporting on effectiveness of these strategies. Helen expressed agreement in re-framing use of walker as facilitating independence rather than embarrassing to encourage walker use and open options for outdoor activities . Helen to try using walker today when they look at [employer]atie options for the kitchen. Possible use of ice cream reward for walker use. Reviewed with Patient Goals,Home Exercise Program Patient/Caregiver Understanding Good Plan Amount of Therapy Recommended 6 Months Frequency of Treatment Once a Week Length of Session 45 Minutes Therapeutic Contents Cognitive-Linguistic Training, Swallowing/Feeding Provided Patient/Caregiver Instruction Home Exercise Program,Plan of Care,Questions/Concerns Therapy Recommendations Continue with Current Program
--- NOTE | 2022-05-06 10:22 | ST.OPTN ---
Visit Care Team Role Provider Type Katia Thomas PA-C Family Provider Non-Staff Primary Care Provider Address: [address] [place] [address], [id number] Mayra Mariscal Attending Provider Non-Staff Referring Provider Address: [facility] [place], [address] PROFESSIONAL NURSING TUTOR Treatment Note PROFESSIONAL NURSING TUTOR Treatment Note Start: 02/05/22 11:25 Freq: Status: Active Protocol: Document 05/06/22 10:16 ZS (Rec: 05/06/22 10:22 ZS [id number]) Speech Pathology Treatment Note Session Time Visit Start Time 09:30 Visit Stop Time 10:15 Total Visit Minutes 45 Visit Information Visit Number 12 Plan of Care Dates 01/29/2022 - 08/22/2022 Insurance Information Medicare Setting Treatment Setting Outpatient Care Visit Type Note Type Treatment Note Next Note Type Next Note Type Treatment Note General Information Patient History Helen is a 71 year old female with a history of IBS and a recent diagnosis (December 2021) of parkinsonisms. She has been experiencing difficulty swallowing recently, with liquid and pills feeling like they get stuck in her mouth or throat. The pt reported coughing episodes when food gets stuck and added that she will sometimes throw up pills that get stuck. Helen stated she has difficulty staying focused on eating and will often have difficulty swallowing when she becomes distracted by environmental things (e.g., dog pressing against her leg, TV, thoughts that come up, etc.). Helen's daughter reported care home memory is not a concern, but stated Helen has been having more difficulty recalling more recent events. Additional concerns regarding balance were reported by Helen's daughter and observed as Helen got up from her chair to leave the room. The pt presents with swallow function WNL. Difficulties observed when pt became distracted, which daughter and pt stated is consistent with behavior at home. Subjective Identification Type Name Identification Reconciled With Medical Record Others Present Family Observations/Patient Presentation Helen arrived on time accompanied by her daughter, who was present for the session. Daughter reported short term memory has gotten worse recently and Helen put on two shirts and two pants this morning. She added they have a neurology appointment on Wednesday (05/12) and an appointment with home health on (05/14). Chief Complaint(s) Swallowing,Cognitive Objective Short Term Goals 1. The pt will perform safe swallow strategies with oral intake independently to reduce risk of aspiration. - No longer of concern at this time . Discontinue goal. 2. The pt will participate in assessment of cognitive function to inform plan of care. - Goal met. Discharge goal. NEW GOALS: 1. The pt will implement external strategies to improve safety in moving around the house. 2. The pt will implement external strategies to increase social engagement in hobbies and with friends, as reported by pt and daughter. Personnel Monitor Goals The pt will engage in ADLs safely and report increased engagement in hobbies/social events. Treatment Activities Discussed use of walker to increase independence and re-framing from embarrassing to helpful or independent. Discussed plan of care moving forward given more significant decline in memory. Assessment Impairments Identified Cognitive communication, Swallow Assessment of Improvement Progress is difficult due to impaired short-term memory that negatively impacts implementation of strategies and reporting of strategy success. Discussed continuing care until home health is established for continued support and discharging from speech therapy once home health is established. Family expressed understanding and agreement with plan of care. Helen exhibited difficulty tracking the conversation today, often contributing unrelated or tangentially related comments when asked if she had any comments or questions. Reviewed with Patient Goals,Home Exercise Program Patient/Caregiver Understanding Good Plan Amount of Therapy Recommended 6 Months Frequency of Treatment Once a Week Length of Session 45 Minutes Therapeutic Contents Cognitive-Linguistic Training, Swallowing/Feeding Provided Patient/Caregiver Instruction Home Exercise Program,Plan of Care,Questions/Concerns Therapy Recommendations Continue with Current Program
--- NOTE | 2022-05-13 10:19 | ST.OPTN ---
Visit Care Team Role Provider Type Katia Thomas PA-C Family Provider Non-Staff Primary Care Provider Address: [address] [place] [address], [id number] Mayra Mariscal Attending Provider Non-Staff Referring Provider Address: [facility] [place], [address] CABLE TELEVISION TECHNICIAN Treatment Note CABLE TELEVISION TECHNICIAN Treatment Note Start: 02/05/22 11:25 Freq: Status: Active Protocol: Document 05/13/22 10:15 ZS (Rec: 05/13/22 10:19 ZS [id number]) Speech Pathology Treatment Note Session Time Visit Start Time 09:30 Visit Stop Time 10:15 Total Visit Minutes 45 Visit Information Visit Number 13 Plan of Care Dates 01/29/2022 - 08/22/2022 Insurance Information Medicare Setting Treatment Setting Outpatient Care Visit Type Note Type Treatment Note Next Note Type Next Note Type Treatment Note General Information Patient History Helen is a 71 year old female with a history of IBS and a recent diagnosis (December 2021) of parkinsonisms. She has been experiencing difficulty swallowing recently, with liquid and pills feeling like they get stuck in her mouth or throat. The pt reported coughing episodes when food gets stuck and added that she will sometimes throw up pills that get stuck. Helen stated she has difficulty staying focused on eating and will often have difficulty swallowing when she becomes distracted by environmental things (e.g., dog pressing against her leg, TV, thoughts that come up, etc.). Helen's daughter reported senior care memory is not a concern, but stated Helen has been having more difficulty recalling more recent events. Additional concerns regarding balance were reported by Helen's daughter and observed as Helen got up from her chair to leave the room. The pt presents with swallow function WNL. Difficulties observed when pt became distracted, which daughter and pt stated is consistent with behavior at home. Subjective Identification Type Name Identification Reconciled With Medical Record Others Present Family Observations/Patient Presentation Helen arrived on time accompanied by her daughter, who was present for the session. Daughter reported increased disorientation this week. She stated the neurology appointment went well and nothing unexpected was found. They have an appointment with home health on (05/14) . Chief Complaint(s) Swallowing,Cognitive Objective Short Term Goals 1. The pt will perform safe swallow strategies with oral intake independently to reduce risk of aspiration. - No longer of concern at this time . Discontinue goal. 2. The pt will participate in assessment of cognitive function to inform plan of care. - Goal met. Discharge goal. NEW GOALS: 1. The pt will implement external strategies to improve safety in moving around the house. 2. The pt will implement external strategies to increase social engagement in hobbies and with friends, as reported by pt and daughter. Chcf Goals The pt will engage in ADLs safely and report increased engagement in hobbies/social events. Treatment Activities Discussed strategies for re- orienting Lanne during moments of disorientation. Daughter reported they are exploring options for care including an adult center with activities during the day, home health and in-home care, and touring live-in facilities. Discussed plan of care moving forward given more significant decline in memory. Assessment Impairments Identified Cognitive communication, Swallow Assessment of Improvement Discussed continuing care until home health is established for continued support and discharging from speech therapy once home health is established. Family expressed understanding and agreement with plan of care. Discussed use of memory book for places and people to help improve memory and orientation during moments of disorientation. Reviewed with Patient Goals,Home Exercise Program Patient/Caregiver Understanding Good Plan Amount of Therapy Recommended 6 Months Frequency of Treatment Once a Week Length of Session 45 Minutes Therapeutic Contents Cognitive-Linguistic Training, Swallowing/Feeding Provided Patient/Caregiver Instruction Home Exercise Program,Plan of Care,Questions/Concerns Therapy Recommendations Continue with Current Program
--- NOTE | 2022-05-20 10:10 | ST.OPDS ---
Visit Care Team Role Provider Type Katia Thomas PA-C Family Provider Non-Staff Primary Care Provider Address: [address] [place] [address], [id number] Mayra Mariscal Attending Provider Non-Staff Referring Provider Address: [facility] [place], [address] MOTOR AND GENERATOR ASSEMBLER Treatment Note MOTOR AND GENERATOR ASSEMBLER Treatment Note Start: 02/05/22 11:25 Freq: Status: Active Protocol: Document 05/20/22 10:02 REJI (Rec: 05/20/22 10:10 ZS [id number]) Speech Pathology Treatment Note Session Time Visit Start Time 09:35 Visit Stop Time 10:00 Total Visit Minutes 25 Visit Information Visit Number 14 Plan of Care Dates 01/29/2022 - 08/22/2022 Insurance Information Medicare Setting Treatment Setting Outpatient Care Visit Type Note Type Discharge Summary General Information Patient History Helen is a 71 year old female with a history of IBS and a recent diagnosis (December 2021) of parkinsonisms. She has been experiencing difficulty swallowing recently, with liquid and pills feeling like they get stuck in her mouth or throat. The pt reported coughing episodes when food gets stuck and added that she will sometimes throw up pills that get stuck. Helen stated she has difficulty staying focused on eating and will often have difficulty swallowing when she becomes distracted by environmental things (e.g., dog pressing against her leg, TV, thoughts that come up, etc.). Helen's daughter reported rat exterminator memory is not a concern, but stated Helen has been having more difficulty recalling more recent events. Additional concerns regarding balance were reported by Helen's daughter and observed as Helen got up from her chair to leave the room. The pt presents with swallow function WNL. Difficulties observed when pt became distracted, which daughter and pt stated is consistent with behavior at home. Subjective Identification Type Name Identification Reconciled With Medical Record Others Present Family Observations/Patient Presentation Helen arrived late accompanied by her daughter, who was present for the session. Daughter reported Home Health and [employer] are in process and going smoothly. Daughter added this morning there was a bathroom emergency but it went smoothly because Hleen was receptive to help. Chief Complaint(s) Swallowing,Cognitive Objective Short Term Goals 1. The pt will perform safe swallow strategies with oral intake independently to reduce risk of aspiration. - No longer of concern at this time . Discontinue goal. 2. The pt will participate in assessment of cognitive function to inform plan of care. - Goal met. Discharge goal. NEW GOALS: 1. The pt will implement external strategies to improve safety in moving around the house. - Goal met. Daughter set up internal cameras and blocked areas to decrease Helen's ability to participate in unsafe activities (e.g., weeding the garden or going up the front steps alone) and increase daughter's ability to identify when Helen needs help. 2. The pt will implement external strategies to increase social engagement in hobbies and with friends, as reported by pt and daughter. - Goal in progress, daughter is pursuing [employer] to increase engagement and social interaction for Helen. Gis Scientist Goals The pt will engage in ADLs safely and report increased engagement in hobbies/social events. Treatment Activities Discussed POC and discharge from speech therapy given pt's cognitive status, successful implementation of external safety strategies in home environment, and on-boarding of [employer] and [employer] as additional support. Discussed strategies and answered all pt questions. Assessment Impairments Identified Cognitive communication, Swallow Assessment of Improvement Family has met all goals and is establishing care with [employer] and [employer]. Transitioning care to home environment for increased success with strategies given pt's cognitive status. Discharging from speech therapy given pt's cognitive status, successful implementation of external safety strategies in home environment, and on-boarding of [employer] and [employer] as additional support. Family expressed agreement and understanding with plan of care. Reviewed with Patient Goals,Home Exercise Program Patient/Caregiver Understanding Good Plan Therapeutic Contents Cognitive-Linguistic Training, Swallowing/Feeding Provided Patient/Caregiver Instruction Home Exercise Program,Plan of Care,Questions/Concerns Therapy Recommendations Discharge from Speech Therapy Reason for Discharge Transition to home health assistance given current cognitive status.
== END 2022-05-20 10:20 | disposition home or self-care (01) ==
LOC: SP 09:30
PROVIDERS: Family Provider Physician Assistant; PCP Physician Assistant; Referring Provider Student in an Organized Health Care Education/Training Program; Visit Provider Student in an Organized Health Care Education/Training Program
DX: R13.10 Dysphagia, unspecified (principal); G20 Parkinson's disease
CPT/HCPCS: 92610; 97129; 97130

== ENCOUNTER 2022-10-20 18:24 | Emergency (ER) | payer MEDICARE, SELFPAY ==
[2022-10-20] VITALS (12 sets, daily range): BP systolic 147–182; BP diastolic 69–100; PULSE 55–71; RESP 12–25; TEMP 36.8; O2SAT 93–98; BMI 20.8
--- NOTE | 2022-10-20 19:07 | DI.RAD.S_ITS ---
PROCEDURE: XR CHEST 1V INDICATIONS: chest pain TECHNIQUE: One view of the chest was acquired. COMPARISON: [facility], , CHEST 2 VIEW, 11/08/2015, 12:59. FINDINGS: Surgical changes and devices: None. Lungs and pleura: Lungs are clear. No pleural effusions or pneumothorax. Mediastinum: Mediastinal contours appear normal. Heart size is normal. Bones and chest wall: No suspicious bony lesions. Overlying soft tissues appear unremarkable. IMPRESSION: 1. No acute cardiopulmonary disease. Dictated by: Guillermo Good M.D. on 10/20/2022 at 20:10 Approved by: Guillermo Good M.D. on 10/20/2022 at 20:11
[2022-10-20 19:35] LABS: Add Manual Diff / Slide Review NO; Basophils Absolute Auto 0 /uL (0-100); Basophils Percent Auto 0.7 % (0-2); Eosinophils Absolute Auto 0 /uL (0-450); Eosinophils Percent Auto 1.5 % (2-4); Hematocrit 33.7 % (36-46); Hemoglobin 11.4 g/dL (12.0-16.0); Lymphocytes Absolute Auto 900 /uL (1100-4500); Lymphocytes Percent Auto 30.4 % (25-40); Mean Corpuscular HGB Conc 33.9 % (30-36); Mean Corpuscular Hemoglobin 28.7 PG (26-34); Mean Corpuscular Volume 84.6 fL (80-100); Monocytes Absolute Auto 300 /uL (0-900); Monocytes Percent Auto 9.1 % (3-14); Neutrophils Absolute Auto 1700 /uL (1500-7000); Neutrophils Percent Auto 58.3 % (50-75); Platelet Count 154 X10^3/uL (150-400); Red Blood Cell Count 3.98 X10^6/uL (4.0-5.2); Red Cell Distribution Width 13.9 % (11.6-14.8); White Blood Cell Count 2.8 X10^3/uL (4.5-11.0)
[2022-10-20 19:44] LABS: INR 1.1 (0.9-1.3); Prothrombin Time 12.2 SECONDS (10.1-12.7)
[2022-10-20 19:47] LABS: PTT Partial Thromboplastin Tim 44 SECONDS (26-36)
[2022-10-20 19:49] LABS: Alanine Aminotransferase 9 IU/L (<35); Albumin 3.7 g/dL (3.5-5.0); Albumin Globulin Ratio 1.2 (1.0-2.8); Alkaline Phosphatase 75 U/L (38-126); Aspartate Aminotransferase 29 IU/L (14-36); BUN Creatinine Ratio 20.2 (6-22); Bilirubin Total 0.9 mg/dL (0.2-1.3); Blood Urea Nitrogen 19 mg/dL (7-17); Calcium 8.4 mg/dL (8.4-10.2); Carbon Dioxide 26 mmol/L (22-32); Chloride 105 mmol/L (98-107); Creatine Kinase 115 U/L (30-135); Estimated Glomerular Filt Rate > 60 mL/min (>60); Globulin 3.1 g/dL (1.7-4.1); Glucose 120 mg/dL (80-110); HEMOLYSIS < 15 (0-50); Lipase 65 U/L (23-300); Magnesium 1.9 mg/dL (1.6-2.3); Potassium 4.2 mmol/L (3.4-5.1); Sodium 138 mmol/L (137-145); Total Protein 6.8 g/dL (6.3-8.2)
[2022-10-20 20:00] LABS: Troponin I < 0.012 ng/mL (0.01-0.034)
[2022-10-20 20:04] LABS: CKMB % Relative Index 0.4 % (1.5-5.0); Creatine Kinase MB 0.43 ng/mL (<2.37)
[2022-10-20 20:46] LABS: D Dimer 846 ng/ml (<500)
[2022-10-20 20:48] LABS: COVID19 -Nasal RAPID POSITIVE (Negative)
[2022-10-20 21:20] LABS: Troponin I < 0.012 ng/mL (0.01-0.034)
[2022-10-20] MEDS: ASPIRIN 81 MG CHEW TAB 324 MG PO (21:30)
[2022-10-20] MEDS: SODIUM CHLORIDE 0.9% 1,000 ML 1000 ML IV (22:48)
--- NOTE | 2022-10-20 23:16 | ED.CHESTPAIN ---
HPI - Chest Pain General Chief Complaint: Chest Pain Stated Complaint: covid +, possible dehydration Time Seen by Provider: 10/20/22 22:11 Source: patient Mode of arrival: Family Vehicle Limitations: no limitations History of Present Illness HPI narrative: Patient is a 72-year-old female history of mild dementia parkinsonian ism presenting today with left upper quadrant pain. She was diagnosed with COVID 5 days ago. Upper respiratory like symptoms. She continues to eat and drink normally. However today she has some left upper quadrant pain it was intermittent but quite painful she was doubled over. No nausea vomiting. She is had some intermittent fevers. No significant cough or shortness of breath. No chest pain just left upper rib pain. Bowel movements have been normal. She is not eating and drinking as much as normal. She lives with daughter who is at bedside. Related Data Home Medications Medication Instructions Recorded Confirmed cyclobenzaprine 5 mg tablet 20 mg PO HS ##0 08/03/16 diazepam 10 mg tablet ##0 08/03/16 estradiol 1 mg tablet 1 mg PO QDAY ##0 08/03/16 metronidazole 0.75 % topical cream ##0 08/03/16 (MetroCream) sertraline 100 mg tablet 100 mg PO QDAY ##0 08/03/16 Previous Rx's Medication Instructions Recorded ondansetron 4 mg disintegrating 4 mg sublingual Q6HP PRN ##20 08/03/16 tablet (Zofran ODT) oxycodone-acetaminophen 5 mg-325 1 tab PO Q4HP PRN #20 tabs 08/03/16 mg tablet (Percocet) hydrocodone 5 mg-acetaminophen 325 1 tab PO Q6H PRN pain #10 tabs 10/21/22 mg tablet Allergies Allergy/AdvReac Type Severity Reaction Status Date / Time lanolin [LANOLIN] Allergy Mild INFLAMED Verified 10/20/22 19:07 FACE bacitracin Allergy Unknown INFLAMMED Verified 10/20/22 19:07 [From NEOSPORIN SKIN ([id number])] neomycin Allergy Unknown INFLAMMED Verified 10/20/22 19:07 [From NEOSPORIN SKIN ([id number])] polymyxin B Allergy Unknown INFLAMMED Verified 10/20/22 19:07 [From NEOSPORIN SKIN ([id number])] citalopram [CITALOPRAM] AdvReac Unknown RECURRENT Verified 10/20/22 19:07 MIGRAINES Review of Systems Review of Systems ROS Unobtainable: All systems reviewed & are unremarkable except as noted in HPI and below Patient History Social History Smoking Status: Former smoker Smoking Status: Former smoker tobacco type: cigarettes alcohol intake frequency: holidays/special occasions only Substance Use Type: does not use Exam Initial Vital Signs Initial Vital Signs: Vital Signs Temperature 98.2 F 10/20/22 18:59 Pulse Rate 71 10/20/22 18:59 Respiratory Rate 25 H 10/20/22 18:59 Blood Pressure 182/78 H 10/20/22 18:59 Pulse Oximetry 98 10/20/22 18:59 Oxygen Delivery Method Room Air 10/20/22 18:59 GENERAL: Alert pleasant 72-year-old female HEENT: Head atraumatic,EOMI, pupils reactive, face symmetric, moist mucous membranes CARDIOVASCULAR: Regular rate and rhythm without murmurs, rubs or gallops. RESPIRATORY: Breath sounds equal bilaterally, no wheezes rales or rhonchi. ABDOMEN: Soft, tender left upper quadrant, splenomegaly present, no guarding no rebound no significant distention EXTREMITIES: Normal range of motion, no clubbing or edema. Neurovascularly intact NEUROLOGICAL: Moving all extremities SKIN: Warm, dry, no laceration, no petechiae, no rashes or lesions. Course Orders Ordered: Discontinued Medications Hydrocodone Bitart/Acetaminophen (Hydrocodone/Acet 5/325 Prepack) 1 bottle MISC SEEINSTR ONE Stop: 10/21/22 01:09 Last Admin: 10/21/22 01:35 Dose: 1 bottle Documented By: BREANNA Aspirin (Aspirin 81 Mg Chew Tab) 324 mg PO NOW ONE Stop: 10/20/22 19:08 Last Admin: 10/20/22 21:30 Dose: 324 mg Documented By: REESE Sodium Chloride (Normal Saline 0.9%) 1,000 mls @ 1,000 mls/hr IV BOLUS ONE Stop: 10/20/22 23:46 Last Infusion: 10/20/22 23:50 Dose: 0 mls/hr Documented By: Admin: 10/20/22 22:48 Dose: 1,000 mls/hr Documented By: REESE Vital Signs Vital signs: Vital Signs - 8 hr 10/20/22 18:59 10/20/22 20:35 10/20/22 20:35 Temperature 98.2 F Pulse Rate 71 61 Respiratory Rate 25 H 16 Blood Pressure 182/78 H 170/75 H Pulse Oximetry 98 98 Oxygen Delivery Method Room Air Room Air 10/20/22 21:00 10/20/22 21:00 10/20/22 21:30 Temperature Pulse Rate 58 L 57 L Respiratory Rate 14 17 Blood Pressure 172/74 H Pulse Oximetry 98 97 Oxygen Delivery Method 10/20/22 21:31 10/20/22 21:31 10/20/22 22:00 Temperature Pulse Rate 58 L Respiratory Rate 17 Blood Pressure 157/74 H 160/100 H Pulse Oximetry 97 Oxygen Delivery Method 10/20/22 22:00 10/20/22 22:15 10/20/22 22:15 Temperature Pulse Rate 59 L 56 L Respiratory Rate 15 12 Blood Pressure 169/74 H Pulse Oximetry 97 98 Oxygen Delivery Method Room Air 10/20/22 22:30 10/20/22 22:30 10/20/22 23:00 Temperature Pulse Rate 57 L 55 L Respiratory Rate 14 18 Blood Pressure 168/76 H Pulse Oximetry 97 98 Oxygen Delivery Method Room Air Room Air 10/20/22 23:01 10/20/22 23:01 Temperature Pulse Rate 57 L Respiratory Rate 15 Blood Pressure 164/75 H Pulse Oximetry 96 Oxygen Delivery Method Room Air MDM - Chest Pain Lab Data 10/20/22 19:25 10/20/22 19:25 Labs: Lab Results 10/20/22 10/20/22 10/20/22 Range/Units 19:25 19:25 19:25 WBC 2.8 L (4.5-11.0) X10^3/uL RBC 3.98 L (4.0-5.2) X10^6/uL Hgb 11.4 L (12.0-16.0) g/dL Hct 33.7 L (36-46) % MCV 84.6 (80-100) fL MCH 28.7 (26-34) PG MCHC 33.9 (30-36) % RDW 13.9 (11.6-14.8) % Plt Count 154 (150-400) X10^3/uL Neut % (Auto) 58.3 (50-75) % Lymph % (Auto) 30.4 (25-40) % [place] % (Auto) 9.1 (3-14) % Eos % (Auto) 1.5 L (2-4) % Baso % (Auto) 0.7 (0-2) % Neut # (Auto) 1700 (5418-9346) /uL Lymph # (Auto) 900 L (1035-3567) /uL [place] # (Auto) 300 (0-900) /uL Eos # (Auto) 0 (0-450) /uL Baso # (Auto) 0 (0-100) /uL PT 12.2 (10.1-12.7) SECONDS INR 1.1 (0.9-1.3) APTT 44 H (26-36) SECONDS D-Dimer (<500) ng/ml Sodium 138 (137-145) mmol/L Potassium 4.2 (3.4-5.1) mmol/L Chloride 105 (98-107) mmol/L Carbon Dioxide 26 (22-32) mmol/L BUN 19 H (7-17) mg/dL Creatinine 0.94 (0.52-1.04) mg/dL Estimated GFR > 60 (>60) mL/min BUN/Creatinine Ratio 20.2 (6-22) Glucose 120 H (80-110) mg/dL Calcium 8.4 (8.4-10.2) mg/dL Magnesium 1.9 (1.6-2.3) mg/dL Total Bilirubin 0.9 (0.2-1.3) mg/dL AST 29 (14-36) IU/L ALT 9 (<35) IU/L Alkaline Phosphatase 75 (38-126) U/L Total Creatine Kinase 115 (30-135) U/L CK-MB (CK-2) 0.43 (<2.37) ng/mL CK-MB (CK-2) Rel Index 0.4 L (1.5-5.0) % Troponin I < 0.012 (0.01-0.034) ng/mL Total Protein 6.8 (6.3-8.2) g/dL Albumin 3.7 (3.5-5.0) g/dL Globulin 3.1 (1.7-4.1) g/dL Albumin/Globulin Ratio 1.2 (1.0-2.8) Lipase 65 (23-300) U/L SARS-CoV-2 (PCR) (Negative) 10/20/22 10/20/22 10/20/22 Range/Units 19:25 20:23 20:27 WBC (4.5-11.0) X10^3/uL RBC (4.0-5.2) X10^6/uL Hgb (12.0-16.0) g/dL Hct (36-46) % MCV (80-100) fL MCH (26-34) PG MCHC (30-36) % RDW (11.6-14.8) % Plt Count (150-400) X10^3/uL Neut % (Auto) (50-75) % Lymph % (Auto) (25-40) % [place] % (Auto) (3-14) % Eos % (Auto) (2-4) % Baso % (Auto) (0-2) % Neut # (Auto) (2499-7039) /uL Lymph # (Auto) (6814-1252) /uL [place] # (Auto) (0-900) /uL Eos # (Auto) (0-450) /uL Baso # (Auto) (0-100) /uL PT (10.1-12.7) SECONDS INR (0.9-1.3) APTT (26-36) SECONDS D-Dimer 846 H (<500) ng/ml Sodium (137-145) mmol/L Potassium (3.4-5.1) mmol/L Chloride (98-107) mmol/L Carbon Dioxide (22-32) mmol/L BUN (7-17) mg/dL Creatinine (0.52-1.04) mg/dL Estimated GFR (>60) mL/min BUN/Creatinine Ratio (6-22) Glucose (80-110) mg/dL Calcium (8.4-10.2) mg/dL Magnesium (1.6-2.3) mg/dL Total Bilirubin (0.2-1.3) mg/dL AST (14-36) IU/L ALT (<35) IU/L Alkaline Phosphatase (38-126) U/L Total Creatine Kinase (30-135) U/L CK-MB (CK-2) (<2.37) ng/mL CK-MB (CK-2) Rel Index (1.5-5.0) % Troponin I < 0.012 (0.01-0.034) ng/mL Total Protein (6.3-8.2) g/dL Albumin (3.5-5.0) g/dL Globulin (1.7-4.1) g/dL Albumin/Globulin Ratio (1.0-2.8) Lipase (23-300) U/L SARS-CoV-2 (PCR) Positive H (Negative) Imaging Data Chest x-ray: Radiologist's Impression: PROCEDURE:? XR CHEST 1V ? INDICATIONS:? chest pain ? TECHNIQUE:? One view of the chest was acquired.? ? COMPARISON:? [facility], , CHEST 2 VIEW, 11/08/2015, 12:59. ? FINDINGS:? ? Surgical changes and devices:? None.? ? Lungs and pleura:? Lungs are clear.? No pleural effusions or pneumothorax.? ? Mediastinum:? Mediastinal contours appear normal.? Heart size is normal.? ? Bones and chest wall:? No suspicious bony lesions.? Overlying soft tissues appear unremarkable.? ? IMPRESSION:? ? 1.? No acute cardiopulmonary disease. ? ? ? Dictated by: Guillermo Good M.D. on 10/20/2022 at 20:10 ?? CT scan - chest: Radiologist's Impression: PROCEDURE:? CT ANGIO CHEST PE PROTOCOL ? INDICATIONS:? covid left sided pain ? TECHNIQUE:? After the administration of intravenous contrast, 2 mm thick sections acquired from the pulmonary apices to the posterior costophrenic angles.? 3-dimensional maximum intensity projection (MIP) coronal and sagittal reformats were then acquired through the thorax.? For radiation dose reduction, the following was used:? automated exposure control, adjustment of mA and/or kV according to patient size.? ? COMPARISON:? None. ? FINDINGS:? Image quality:? Excellent.? ? Pulmonary arteries:? Pulmonary arteries demonstrate no intraluminal filling defects to suggest central pulmonary embolism.? ? Lower Neck: No lymphadenopathy by size criteria. Thyroid:? Visualized thyroid demonstrates no discrete nodules. Axillae: No lymphadenopathy by size criteria. Chest Wall:? Unremarkable.? Bones: Visualized osseous structures demonstrate no suspicious lesions. ? Lungs and Airways:? No acute consolidation.? There is dependent atelectasis bilaterally.? There are 2 small peripheral nodules within the left lower lobe measuring up to 0.5 cm on series 3, image 183.? The trachea and central airways are patent. Pleura: No pneumothorax or pleural effusions.? ? Heart: Heart size is normal.? No pericardial effusion. Thoracic Vessels:? There is aneurysmal dilatation of the descending thoracic aorta which measures up to 3.2 cm proximally, 3.4 cm in the mid segment, and 3.2 cm at the level of the diaphragmatic hiatus. Mediastinum and [place]: No lymphadenopathy by size criteria. Esophagus: No wall thickening. No hiatal hernia. ? Abdomen:? Visualized upper abdomen demonstrates enlargement of the partially visualized spleen.? ? IMPRESSION:? ? 1.? No evidence of pulmonary embolism. ? 2. No acute consolidation. ? 3. Left lower lobe pulmonary nodules measuring up to 0.5 cm.? If clinically indicated, a follow-up CT may be performed in 12 months to demonstrate stability. ? 4. Enlargement of the partially visualized spleen. ? ? Dictated by: Guillermo Good M.D. on 10/21/2022 at 0:23 ? ? Approved by: Guillermo Good M.D. on 10/21/2022 at 0:27 CT scan - abdomen/pelvis: Radiologist's Impression: PROCEDURE:? CT ABDOMEN PELVIS W CON ? INDICATIONS:? left upper quad ? TECHNIQUE:? After the administration of IV contrast, axial sections were acquired from the lung bases to the pubic symphysis.? Coronal and sagittal reformats were performed.? For radiation dose reduction, the following was used:? automated exposure control, adjustment of mA and/or kV according to patient size. ? COMPARISON:? [facility], CT, CT ANGIO CHEST PE PROTOCOL, 10/20/2022, 23:31. ? FINDINGS:? Image quality:? Excellent.? ? Lung bases:? There is mild dependent atelectasis.? In the left lower lobe, there is small peripheral nodules measuring up to 0.5 cm on series 6, image 14. A subpleural nodule is also demonstrated in the right lower lobe measuring 0.4 cm on series 6, image 8.? ? Heart:? Heart is normal in size. ? ? ABDOMEN: Liver:? There is a small cyst medially within the right lower lobe measuring up to 0.8 cm. Gallbladder:? Numerous dependent calcified gallstones are demonstrated within the gallbladder.? No gallbladder wall thickening or pericholecystic fluid. Biliary ducts:? No biliary ductal dilatation.? ? Pancreas:? Unremarkable.? ? Spleen:? The spleen is mildly enlarged, measuring up to 13.9 cm. Adrenal Glands:? No adrenal nodules.? ? Kidneys and Ureters:? There is mild pelvicaliectasis bilaterally as well as likely parapelvic renal cysts.? No hydroureter. ? Stomach and Bowel:? Stomach, small bowel loops, and colon are normal in caliber and wall thickness.? No pericecal inflammatory changes to suggest appendicitis.? Peritoneum:? No abnormal intraperitoneal fluid.? No free air.? ? Ventral Wall: ? No hernia.? Abdominal Nodes:? No retroperitoneal or mesenteric adenopathy by size criteria.? Vessels:? Aorta and inferior vena cava are normal in size.? ? PELVIS: Pelvic Organs:? Unremarkable.? ? Bladder:? Unremarkable.? ? Pelvic Nodes: No enlarged lymph nodes.? Miscellaneous: No inguinal hernias are seen. ? ? ? Bones:? Visualized osseous structures demonstrate no suspicious focal lesions. ? IMPRESSION:? ? 1. Mild splenomegaly. ? 2. Bilateral mild pelvicaliectasis in the renal collecting systems without definite obstructive uropathy. ? 3. Cholelithiasis without CT evidence of acute cholecystitis.? ? Dictated by: Guillermo Good M.D. on 10/21/2022 at 0:41 ? ? Approved by: Guillermo Good M.D. on 10/21/2022 at 0:47 ? ECG Data Interpretation: Normal sinus rhythm rate 69 CO interval 134 QRS 8 QTC 430 MDM Narrative Medical decision making narrative: Patient 72-year-old female history of dementia parkinsonian ism presenting with known COVID infection left upper quadrant pain. On exam she is found to have some mild splenomegaly. Which is confirmed by CT abdomen and pelvis. CT for pulmonary embolism was also done secondary to COVID an elevated dimer greater than 800. Patient is not hypoxic tachycardic or febrile. Blood work does reveal some mild leukopenia with a WBC of 2.8 but is not neutropenic, there is no electrolyte abnormality or acute kidney injury. At this time she is not require admission to the hospital. Concern for underlying malignancy with leukopenia and splenomegaly. Recommend outpatient follow-up Discharge Plan Departure Patient Disposition: Home Clinical Impression: COVID-19, Splenomegaly Activity Restrictions/Additional Instructions: *You have been diagnosed with COVID-19 and splenomegaly *What to do: At this time spleen is noted to be mildly enlarged with slightly low white blood cells. I recommend outpatient follow-up. Not sure this is all related to COVID-19 there might be underlying process. May need hematology/oncology consultation please talk with your PCP about this This far as COVID rest hydrate and pain control. *Continue to take medications as directed Tylenol as recommended Ragland 1 tablet every 6 hours if needed for severe pain --> SENT TO [facility] *Follow up with your primary care provider in 2-3 days or call [phone] *Return to ER if you should have increasing pain dizziness lightheadedness passing out shortness of breath or any new, worsening or concerning symptoms CONTROLLED SUBSTANCE DISCHARGE (Narcotoic/benzodiazepine/Flexeril/Phenergan) 1. You have been prescribed narcotic medications, it does have acetaminophen/Tylenol/paracetamol in it, DO NOT TAKE MORE THAN 4,00mg in 24 hours of Tylenol. TRAMADOL DOES NOT CONTAIN TYLENOL 2. Please understand that we cannot provide further refills of narcotics, benzodiazepines or controlled substances through the ED and her pain management will need to be through your provider. 3. While on these medications you cannot drive or operate heavy machinery. 4. You cannot sign legal documents or perform any duties such as this. 5. As long as you're taking opiate pain medications he should also be taking a stool softener such as Colace, Dulcolax, MiraLAX or prune juice, to help avoid constipation. Prescriptions: New hydrocodone-acetaminophen 5-325 mg tablet 1 tab PO Q6H PRN (Reason: pain) Qty: 10 0RF No Action cyclobenzaprine 5 MG tablet 20 mg PO HS Qty: 0 estradiol 1 MG tablet 1 mg PO QDAY Qty: 0 diazepam 10 MG tablet Qty: 0 sertraline 100 MG tablet 100 mg PO QDAY Qty: 0 metronidazole [MetroCream] 0.75 % cream Qty: 0 oxycodone-acetaminophen [Percocet] 5 MG/325 MG tablet 1 tab PO Q4HP PRNQty: 20 0RF ondansetron [Zofran ODT] 4 MG tablet,disintegrating 4 mg Sublingual Q6HP PRNQty: 20 0RF Referrals: Katia Thomas PA-C [Primary Care Provider] - Stand Alone Forms: Patient Portal/API
--- NOTE | 2022-10-20 23:26 | DI.CT.S_ITS ---
PROCEDURE: CT ABDOMEN PELVIS W CON INDICATIONS: left upper quad TECHNIQUE: After the administration of IV contrast, axial sections were acquired from the lung bases to the pubic symphysis. Coronal and sagittal reformats were performed. For radiation dose reduction, the following was used: automated exposure control, adjustment of mA and/or kV according to patient size. COMPARISON: [facility], CT, CT ANGIO CHEST PE PROTOCOL, 10/20/2022, 23:31. FINDINGS: Image quality: Excellent. Lung bases: There is mild dependent atelectasis. In the left lower lobe, there is small peripheral nodules measuring up to 0.5 cm on series 6, image 14. A subpleural nodule is also demonstrated in the right lower lobe measuring 0.4 cm on series 6, image 8. Heart: Heart is normal in size. ABDOMEN: Liver: There is a small cyst medially within the right lower lobe measuring up to 0.8 cm. Gallbladder: Numerous dependent calcified gallstones are demonstrated within the gallbladder. No gallbladder wall thickening or pericholecystic fluid. Biliary ducts: No biliary ductal dilatation. Pancreas: Unremarkable. Spleen: The spleen is mildly enlarged, measuring up to 13.9 cm. Adrenal Glands: No adrenal nodules. Kidneys and Ureters: There is mild pelvicaliectasis bilaterally as well as likely parapelvic renal cysts. No hydroureter. Stomach and Bowel: Stomach, small bowel loops, and colon are normal in caliber and wall thickness. No pericecal inflammatory changes to suggest appendicitis. Peritoneum: No abnormal intraperitoneal fluid. No free air. Ventral Wall: No hernia. Abdominal Nodes: No retroperitoneal or mesenteric adenopathy by size criteria. Vessels: Aorta and inferior vena cava are normal in size. PELVIS: Pelvic Organs: Unremarkable. Bladder: Unremarkable. Pelvic Nodes: No enlarged lymph nodes. Miscellaneous: No inguinal hernias are seen. Bones: Visualized osseous structures demonstrate no suspicious focal lesions. IMPRESSION: 1. Mild splenomegaly. 2. Bilateral mild pelvicaliectasis in the renal collecting systems without definite obstructive uropathy. 3. Cholelithiasis without CT evidence of acute cholecystitis. Dictated by: Guillermo Good M.D. on 10/21/2022 at 0:41 Approved by: Guillermo Good M.D. on 10/21/2022 at 0:47
--- NOTE | 2022-10-20 23:26 | DI.CT.S_ITS ---
PROCEDURE: CT ANGIO CHEST PE PROTOCOL INDICATIONS: covid left sided pain TECHNIQUE: After the administration of intravenous contrast, 2 mm thick sections acquired from the pulmonary apices to the posterior costophrenic angles. 3-dimensional maximum intensity projection (MIP) coronal and sagittal reformats were then acquired through the thorax. For radiation dose reduction, the following was used: automated exposure control, adjustment of mA and/or kV according to patient size. COMPARISON: None. FINDINGS: Image quality: Excellent. Pulmonary arteries: Pulmonary arteries demonstrate no intraluminal filling defects to suggest central pulmonary embolism. Lower Neck: No lymphadenopathy by size criteria. Thyroid: Visualized thyroid demonstrates no discrete nodules. Axillae: No lymphadenopathy by size criteria. Chest Wall: Unremarkable. Bones: Visualized osseous structures demonstrate no suspicious lesions. Lungs and Airways: No acute consolidation. There is dependent atelectasis bilaterally. There are 2 small peripheral nodules within the left lower lobe measuring up to 0.5 cm on series 3, image 183. The trachea and central airways are patent. Pleura: No pneumothorax or pleural effusions. Heart: Heart size is normal. No pericardial effusion. Thoracic Vessels: There is aneurysmal dilatation of the descending thoracic aorta which measures up to 3.2 cm proximally, 3.4 cm in the mid segment, and 3.2 cm at the level of the diaphragmatic hiatus. Mediastinum and [place]: No lymphadenopathy by size criteria. Esophagus: No wall thickening. No hiatal hernia. Abdomen: Visualized upper abdomen demonstrates enlargement of the partially visualized spleen. IMPRESSION: 1. No evidence of pulmonary embolism. 2. No acute consolidation. 3. Left lower lobe pulmonary nodules measuring up to 0.5 cm. If clinically indicated, a follow-up CT may be performed in 12 months to demonstrate stability. 4. Enlargement of the partially visualized spleen. Dictated by: Guillermo Good M.D. on 10/21/2022 at 0:23 Approved by: Guillermo Good M.D. on 10/21/2022 at 0:27
[2022-10-21] VITALS (7 sets, daily range): BP systolic 155–182; BP diastolic 69–73; PULSE 61–79; RESP 15–25; TEMP 36.4; O2SAT 91–97
[2022-10-21] MEDS: HYDROCODONE/ACET 5/325 PREPACK 1 BOTTLE MISC (01:35)
== END 2022-10-21 01:30 | disposition home or self-care (01) ==
PROVIDERS: Emergency Provider Emergency Medicine; Family Provider Physician Assistant; PCP Physician Assistant
DX: U07.1 COVID-19 (principal); R16.1 Splenomegaly, not elsewhere classified; Z20.822 Contact with and (suspected) exposure to COVID-19
CPT/HCPCS: 36415; 71045; 71275; 74177; 80053; 82550; 82553; 83690; 83735; 84484; 85025; 85379; 85610; 85730; 87635; 93005; 96360; 99284; C9803; Q9967

== ENCOUNTER 2022-10-25 19:19 | Inpatient (IN) | payer MEDICARE, SELFPAY ==
[2022-10-25] VITALS (10 sets, daily range): BP systolic 152–175; BP diastolic 72–87; PULSE 69–87; RESP 14–18; TEMP 36.4; O2SAT 96–98; BMI 26.6
--- NOTE | 2022-10-25 19:22 | DI.CT.S_ITS ---
PROCEDURE: CT FACIAL BONES WO CON INDICATIONS: fall with L sided face injury TECHNIQUE: Noncontrast 2.5 mm thick axial images acquired from the mandible through the frontal sinuses, with coronal and sagittal reformatting. For radiation dose reduction, the following was used: automated exposure control, adjustment of mA and/or kV according to patient size. COMPARISON: [facility], CT, CT HEAD/BRAIN WO CON, 10/25/2022, 19:24. FINDINGS: Image quality: Excellent. Bones and teeth: Orbital taylor are intact. Sinus taylor show no fracture or deformity. Nasal bones and septum are intact. Visualized portions of the mandible demonstrate no fractures or subluxation. Zygomatic arches are intact. Pterygoid plates are intact. Visualized portions of the skull base and auditory canals are intact. Sinuses: There is opacity of the right maxillary sinus with air-fluid level noted. Small air-fluid levels are also seen in the left maxillary sinus and bilateral sphenoid sinuses. There is partial opacification of the bilateral ethmoid air cells. The frontal sinuses are clear. Mastoid air cells are also clear. Soft tissues: Soft tissue edema and hemorrhage are seen in the left face overlying the zygoma and left periorbital region. Left posterior extra-axial hemorrhage and scattered foci of subarachnoid hemorrhage are seen, which are better evaluated on the dedicated CT of the head performed the same time. Vascular: Visualized vascular structures appear normal in the absence of contrast. Bony vascular foramina and canals are intact. IMPRESSION: 1. No acute facial fracture. Left facial subcutaneous edema/subcutaneous hematomas. 2. Diffuse paranasal sinus disease. 3. Extra-axial intraparenchymal hemorrhage is better evaluated CT of the head performed at the same time. Approved by: Lupillo Muller M.D. on 10/25/2022 at 20:20
--- NOTE | 2022-10-25 19:22 | DI.CT.S_ITS ---
PROCEDURE: CT CERVICAL SPINE WO CON INDICATIONS: fall TECHNIQUE: Noncontrast 3 mm thick sections acquired from the skull base to the T4 level. Sagittal and coronal reformats were then constructed. For radiation dose reduction, the following was used: automated exposure control, adjustment of mA and/or kV according to patient size. COMPARISON: None. FINDINGS: Image quality: Excellent. Bones: No acute fractures or dislocations. Mild degenerative grade 1 retrolisthesis of C3 on C4 and C4 on C5. Visualized superior ribs are intact. Mild multilevel degenerative changes. Soft tissues: Left posterior extra-axial hemorrhage is better demonstrated on CT of the head performed the same time. Prevertebral soft tissues are normal in thickness. No paravertebral hematomas. No apical pneumothoraces. Mild intra muscle dilatation of the descending thoracic aorta is partially visualized, better demonstrated on prior CT angiogram. IMPRESSION: No acute cervical spine fracture or subluxation. Mild spondylosis. Approved by: Lupillo Muller M.D. on 10/25/2022 at 20:08
--- NOTE | 2022-10-25 19:22 | DI.CT.S_ITS ---
PROCEDURE: CT HEAD/BRAIN WO CON INDICATIONS: fall with head injury TECHNIQUE: Noncontrast 4.5 mm thick angled axial sections acquired from the foramen magnum to the vertex, with coronal and sagittal reformats. For radiation dose reduction, the following was used: automated exposure control, adjustment of mA and/or kV according to patient size. COMPARISON: None. FINDINGS: Image quality: Excellent. Brain and CSF: Hyperdense extra-axial hemorrhage is seen along the left parieto-occipital convexity measuring up to 12 mm and maximum thickness (image 19 of series 2). There is no significant mass effect or midline shift. Scattered foci of hyperdense hemorrhage are seen in the subarachnoid space within the bilateral frontal convexity, of the left sylvian fissure, and within the interventricular septum. No intraparenchymal hemorrhage is seen. Hypodensities in the subcortical and periventricular white matter compatible with chronic microvascular ischemic changes. There is moderate cerebral and cerebellar parenchymal volume loss. Skull and face: Small left supraorbital scalp hematoma is noted. Soft tissue edema is also seen in the left face. No acute skull fracture identified. Sinuses: Air-fluid levels are seen in the maxillary sinuses bilaterally, greater on the right. There is partial opacification of the bilateral ethmoid air cells. Small air-fluid levels are seen in the bilateral sphenoid sinuses. The mastoid air cells are clear. IMPRESSION: 1. Hyperdense left parietal occipital extra-axial hemorrhage measuring up to 12 mm in thickness. No overlying skull fracture is seen. No significant mass effect or midline shift. 2. Multiple small scattered foci of traumatic subarachnoid hemorrhage along the bilateral frontal convexities, left sylvian fissure, and posterior septum pellucidum. 3. Partial opacification of the visualized paranasal sinuses without acute sinus fracture identified. Findings were discussed with the referring physician, Dr. Wood, by telephone on 10/25/2022 at approximately 8:00 PM. Approved by: Lupillo Muller M.D. on 10/25/2022 at 20:05
--- NOTE | 2022-10-25 19:24 | ED.GENADULT ---
HPI - General Adult General Chief complaint: Fall Stated complaint: Fall Time Seen by Provider: 10/25/22 19:22 Source: patient, family and EMS Mode of arrival: EMS Limitations: altered mental status History of Present Illness HPI narrative: Patient is a 72-year-old female. Has a history of parkinsonian is on with baseline occasional mobility issues. Also has a reported history of Lewy body dementia although daughter at bedside stated that she does not carry all of the standard features of this. States at baseline the patient frequently has issues with what year it is but otherwise is fairly alert and oriented. Does ambulate at home. Patient was brought in by EMS for evaluation of injuries that she sustained where it was reported that she tripped and fell at home. Most likely when she turned and started walking she tripped over her feet. Daughter states she fell forward landing on her face/head without bracing herself. There was a loss of consciousness for short period of time afterwards. EMS reports that when they arrived she had ?agonal? breathing although that was not apparent upon arrival here to the ER. Here in the ER the patient stated that she was not in any pain although I do question is whether not she knew what I was asking her although she did follow other directions like moving her arms and legs. Patient does have a POLST form which does show DNR with limited interventions. Related Data Home Medications Medication Instructions Recorded Confirmed diazepam 10 mg tablet 5 mg PO QPM ##0 08/03/16 10/25/22 sertraline 100 mg tablet 200 mg PO QDAY ##0 08/03/16 10/25/22 alprazolam 0.5 mg tablet 0.5 mg PO BEDTIME PRN Sleep 10/25/22 10/25/22 atorvastatin 10 mg tablet 10 mg PO BEDTIME 10/25/22 10/25/22 bupropion HCl 300 mg 24 hr tablet, 300 mg PO QAM 10/25/22 10/25/22 extended release carbidopa 25 mg-levodopa 100 mg 0.5 tab PO TID 10/25/22 10/25/22 tablet Previous Rx's Medication Instructions Recorded hydrocodone 5 mg-acetaminophen 325 1 tab PO Q6H PRN pain #10 tabs 10/21/22 mg tablet Allergies Allergy/AdvReac Type Severity Reaction Status Date / Time lanolin [LANOLIN] Allergy Mild INFLAMED Verified 10/20/22 19:07 FACE bacitracin Allergy Unknown INFLAMMED Verified 10/20/22 19:07 [From NEOSPORIN SKIN ([id number])] neomycin Allergy Unknown INFLAMMED Verified 10/20/22 19:07 [From NEOSPORIN SKIN ([id number])] polymyxin B Allergy Unknown INFLAMMED Verified 10/20/22 19:07 [From NEOSPORIN SKIN ([id number])] citalopram [CITALOPRAM] AdvReac Unknown RECURRENT Verified 10/20/22 19:07 MIGRAINES Review of Systems Review of Systems ROS Unobtainable: Unobtainable due to mental condition Patient History Medical History COVID-19 Essential hypertension Lewy body dementia Parkinsonian features Social History household members: children Smoking Status: Former smoker alcohol intake: never Smoking Status: Former smoker tobacco type: cigarettes alcohol intake frequency: holidays/special occasions only Substance Use Type: does not use Exam Initial Vital Signs Initial Vital Signs: Vital Signs Pulse Rate 85 10/25/22 19:22 Blood Pressure 172/87 H 10/25/22 19:22 Pulse Oximetry 97 10/25/22 19:22 Oxygen Delivery Method Room Air 10/25/22 19:22 Const General: cooperative, comfortable and No ill appearing HENMT Face and sinus: abrasion on the left periorbital Eyes Pupils: PERRL Resp Effort & Inspection: normal respiratory effort Auscultation: clear to auscultation bilaterally Cardio Rate: regular rate Rhythm: regular rhythm GI Inspection: normal to inspection and non-distended Back/Spine/Pelvis Cervical Spine: collar present Skin Other: Abrasion with swelling periorbital left eye Neuro General: patient alert, patient awake and moves all extremities Extrem Other: No gross deformities, no reported tenderness with movement. Pelvis is stable. Psych Appearance: grossly normal Scores GCS Hang coma scale eye opening: Spontaneous [place] coma scale verbal response: Confused [place] coma scale motor response: Obey commands [place] coma scale total score: 14 Course Orders Ordered: ED Orders 10/25/22 19:21 Basic Metabolic Panel Stat Complete Blood Count AUTO DIFF Stat 10/25/22 19:22 CT cervical spine wo con Stat CT facial bones wo con Stat CT head/brain wo con Stat 10/25/22 19:23 COVID19 -Nasal RAPID Stat Acetaminophen (Acetaminophen 325 Mg Tablet) 650 mg PO Q6H PRN PRN Reason: Fever/Mild Pain (1-3) Atorvastatin Calcium (Atorvastatin 20 Mg Tablet) 10 mg PO BEDTIME SHELLIE Bupropion HCl (Bupropion Xl 150 Mg Tab) 300 mg PO DAILY SHELLIE Carbidopa/Levodopa (Carbidopa-Levodopa 25/100 Tablet) 0.5 each PO TID SHELLIE Sodium Chloride (Normal Saline 0.45%) 1,000 mls @ 100 mls/hr IV CONT SHELLIE Last Admin: 10/25/22 23:55 Dose: 100 mls/hr Documented By: AM Naloxone HCl (Naloxone 0.4 Mg/Ml Vial) 0.2 mg IV Q2MIN PRN PRN Reason: Opiate Reversal Sertraline HCl (Sertraline 50 Mg Tablet) 200 mg PO DAILY [facility] Tramadol HCl (Tramadol 50 Mg Tablet) 50 mg PO TID PRN PRN Reason: Pain, Moderate (4-6) Vital Signs Vital signs: Vital Signs - 8 hr 10/25/22 19:25 10/25/22 19:22 10/25/22 19:22 Temperature 97.6 F Pulse Rate 87 85 Respiratory Rate 16 Blood Pressure 172/87 H 172/87 H Pulse Oximetry 96 97 Oxygen Delivery Method Room Air Room Air 10/25/22 19:40 10/25/22 19:47 10/25/22 19:47 Temperature Pulse Rate 74 74 Respiratory Rate 18 Blood Pressure 175/78 H Pulse Oximetry 96 97 Oxygen Delivery Method Room Air Room Air 10/25/22 20:00 10/25/22 20:00 10/25/22 20:30 Temperature Pulse Rate 69 Respiratory Rate 16 Blood Pressure 161/79 H 164/74 H Pulse Oximetry 96 Oxygen Delivery Method Room Air 10/25/22 20:30 10/25/22 21:00 10/25/22 21:00 Temperature Pulse Rate 71 71 Respiratory Rate 15 14 Blood Pressure 169/76 H Pulse Oximetry 96 97 Oxygen Delivery Method Room Air Room Air Medical Decision Making Medical Records Medical records reviewed: Yes I reviewed the patient's medical records. Lab Data Lab results reviewed: Yes I reviewed the patient's lab results. 10/25/22 19:21 10/25/22 19:21 Labs: Lab Results 10/25/22 10/25/22 10/25/22 Range/Units 19:21 19:21 19:23 WBC 7.6 (4.5-11.0) X10^3/uL RBC 4.44 (4.0-5.2) X10^6/uL Hgb 12.5 (12.0-16.0) g/dL Hct 37.6 (36-46) % MCV 84.7 (80-100) fL MCH 28.3 (26-34) PG MCHC 33.4 (30-36) % RDW 13.8 (11.6-14.8) % Plt Count 248 (150-400) X10^3/uL Neut % (Auto) 55.0 (50-75) % Lymph % (Auto) 33.6 (25-40) % [place] % (Auto) 8.2 (3-14) % Eos % (Auto) 1.7 L (2-4) % Baso % (Auto) 1.5 (0-2) % Neut # (Auto) 4200 (0440-4247) /uL Lymph # (Auto) 2600 (9833-4350) /uL [place] # (Auto) 600 (0-900) /uL Eos # (Auto) 100 (0-450) /uL Baso # (Auto) 100 (0-100) /uL Sodium 139 (137-145) mmol/L Potassium 4.0 (3.4-5.1) mmol/L Chloride 105 (98-107) mmol/L Carbon Dioxide 21 L (22-32) mmol/L BUN 18 H (7-17) mg/dL Creatinine 0.85 (0.52-1.04) mg/dL Estimated GFR > 60 (>60) mL/min BUN/Creatinine Ratio 21.2 (6-22) Glucose 129 H (80-110) mg/dL Calcium 9.0 (8.4-10.2) mg/dL SARS-CoV-2 (PCR) Positive H (Negative) Imaging Data CT - cervical spine: Radiologist's Impression: PROCEDURE:? CT CERVICAL SPINE WO CON ? INDICATIONS:? fall ? TECHNIQUE:? Noncontrast 3 mm thick sections acquired from the skull base to the T4 level.? Sagittal and coronal reformats were then constructed.? For radiation dose reduction, the following was used:? automated exposure control, adjustment of mA and/or kV according to patient size.? ? COMPARISON:? None. ? FINDINGS:? Image quality:? Excellent.? ? Bones:? No acute fractures or dislocations.? Mild degenerative grade 1 retrolisthesis of C3 on C4 and C4 on C5.? Visualized superior ribs are intact.? Mild multilevel degenerative changes. ? Soft tissues:? Left posterior extra-axial hemorrhage is better demonstrated on CT of the head performed the same time.? Prevertebral soft tissues are normal in thickness.? No paravertebral hematomas.? No apical pneumothoraces.? Mild intra muscle dilatation of the descending thoracic aorta is partially visualized, better demonstrated on prior CT angiogram. ? IMPRESSION:? No acute cervical spine fracture or subluxation.? Mild spondylosis. CT face: Radiologist's Impression: PROCEDURE:? CT FACIAL BONES WO CON ? INDICATIONS:? fall with L sided face injury ? TECHNIQUE:? Noncontrast 2.5 mm thick axial images acquired from the mandible through the frontal sinuses, with coronal and sagittal reformatting.? For radiation dose reduction, the following was used:? automated exposure control, adjustment of mA and/or kV according to patient size.? ? COMPARISON:? [facility], CT, CT HEAD/BRAIN WO CON, 10/25/2022, 19:24. ? FINDINGS:? Image quality:? Excellent.? ? Bones and teeth:? Orbital taylor are intact.? Sinus taylor show no fracture or deformity.? Nasal bones and septum are intact.? Visualized portions of the mandible demonstrate no fractures or subluxation.? Zygomatic arches are intact.? Pterygoid plates are intact.? Visualized portions of the skull base and auditory canals are intact.? ? Sinuses:? There is opacity of the right maxillary sinus with air-fluid level noted.? Small air-fluid levels are also seen in the left maxillary sinus and bilateral sphenoid sinuses.? There is partial opacification of the bilateral ethmoid air cells.? The frontal sinuses are clear.? Mastoid air cells are also clear. ? Soft tissues:? Soft tissue edema and hemorrhage are seen in the left face overlying the zygoma and left periorbital region.? Left posterior extra-axial hemorrhage and scattered foci of subarachnoid hemorrhage are seen, which are better evaluated on the dedicated CT of the head performed the same time. ? Vascular:? Visualized vascular structures appear normal in the absence of contrast.? Bony vascular foramina and canals are intact.? ? IMPRESSION:? 1. No acute facial fracture.? Left facial subcutaneous edema/subcutaneous hematomas. 2. Diffuse paranasal sinus disease. 3. Extra-axial intraparenchymal hemorrhage is better evaluated CT of the head performed at the same time.? CT scan - head: Radiologist's Impression: PROCEDURE:? CT HEAD/BRAIN WO CON ? INDICATIONS:? fall with head injury ? TECHNIQUE:? Noncontrast 4.5 mm thick angled axial sections acquired from the foramen magnum to the vertex, with coronal and sagittal reformats.? For radiation dose reduction, the following was used:? automated exposure control, adjustment of mA and/or kV according to patient size.? ? COMPARISON:? None. ? FINDINGS:? Image quality:? Excellent.? ? Brain and CSF:? Hyperdense extra-axial hemorrhage is seen along the left parieto-occipital convexity measuring up to 12 mm and maximum thickness (image 19 of series 2).? There is no significant mass effect or midline shift.? Scattered foci of hyperdense hemorrhage are seen in the subarachnoid space within the bilateral frontal convexity, of the left sylvian fissure, and within the interventricular septum.? No intraparenchymal hemorrhage is seen.? Hypodensities in the subcortical and periventricular white matter compatible with chronic microvascular ischemic changes.? There is moderate cerebral and cerebellar parenchymal volume loss. ? Skull and face:? Small left supraorbital scalp hematoma is noted.? Soft tissue edema is also seen in the left face.? No acute skull fracture identified.? ? Sinuses:? Air-fluid levels are seen in the maxillary sinuses bilaterally, greater on the right.? There is partial opacification of the bilateral ethmoid air cells.? Small air-fluid levels are seen in the bilateral sphenoid sinuses.? The mastoid air cells are clear. ? IMPRESSION:? 1. Hyperdense left parietal occipital extra-axial hemorrhage measuring up to 12 mm in thickness.? No overlying skull fracture is seen.? No significant mass effect or midline shift. 2. Multiple small scattered foci of traumatic subarachnoid hemorrhage along the bilateral frontal convexities, left sylvian fissure, and posterior septum pellucidum. 3. Partial opacification of the visualized paranasal sinuses without acute sinus fracture identified. ? Findings were discussed with the referring physician, Dr. Wood, by telephone on 10/25/2022 at approximately 8:00 PM. [facility] Narrative Medical decision making narrative: Patient is confused upon arrival which apparently is worse than baseline per daughter at bedside. Cervical spine CT is negative. Collar was removed. Does have an abrasion on the left side of her face which leads no specific intervention here in the emergency department. Facial CT does not show any fractures. Has intracranial hemorrhage based on the head CT. Patient not on anticoagulation. Patient does not have any gross deformities of the upper lower extremities. She is no apparent discomfort with movement and her pelvis is stable so we will hold on further imaging of her extremities for now. Had a long discussion with the patient's daughter regarding goals of care. We did discuss the patient's POLST form and the daughter did state that the patient would not want any ?heroic? or advanced procedures done. Given this we will admit to our facility for continued evaluation and treatment. Did not talk with Neurosurgery for this case given the decisions that have already been made by the patient. I did discuss the case with ACACIA peterson the night hospitalist who will admit for further evaluation and treatment. Discharge Plan Departure Patient Disposition: Admitted As Inpatient Clinical Impression: Subarachnoid hemorrhage, Subdural hemorrhage, Abrasion of face, Parkinsonism Admit Date/Time: 10/25/22 21:04 Admit Provider: Anastasiia Peterson
[2022-10-25 19:29] LABS: Add Manual Diff / Slide Review NO; Basophils Absolute Auto 100 /uL (0-100); Basophils Percent Auto 1.5 % (0-2); Eosinophils Absolute Auto 100 /uL (0-450); Eosinophils Percent Auto 1.7 % (2-4); Hematocrit 37.6 % (36-46); Hemoglobin 12.5 g/dL (12.0-16.0); Lymphocytes Absolute Auto 2600 /uL (1100-4500); Lymphocytes Percent Auto 33.6 % (25-40); Mean Corpuscular HGB Conc 33.4 % (30-36); Mean Corpuscular Hemoglobin 28.3 PG (26-34); Mean Corpuscular Volume 84.7 fL (80-100); Monocytes Absolute Auto 600 /uL (0-900); Monocytes Percent Auto 8.2 % (3-14); Neutrophils Absolute Auto 4200 /uL (1500-7000); Platelet Count 248 X10^3/uL (150-400); Red Blood Cell Count 4.44 X10^6/uL (4.0-5.2); Red Cell Distribution Width 13.8 % (11.6-14.8); White Blood Cell Count 7.6 X10^3/uL (4.5-11.0)
[2022-10-25 19:39] LABS: BUN Creatinine Ratio 21.2 (6-22); Blood Urea Nitrogen 18 mg/dL (7-17); Carbon Dioxide 21 mmol/L (22-32); Chloride 105 mmol/L (98-107); Estimated Glomerular Filt Rate > 60 mL/min (>60); Glucose 129 mg/dL (80-110); HEMOLYSIS 36 (0-50); Sodium 139 mmol/L (137-145)
[2022-10-25 20:42] LABS: COVID19 -Nasal RAPID POSITIVE (Negative)
--- NOTE | 2022-10-25 23:01 | P.HP_ITS ---
History of Present Illness History of Present Illness Date Patient Seen: 10/25/22 Time Patient Seen: 23:02 Chief complaint: Fall at home Narrative: Helen Clayton is a 72 y.o. female with new diagnosis of Lewy Body dementia, Parkinsonianism, apparently was in her bedroom, pivoted as she was either getting out of or into bed, tripped over her feet and fell face first. Daughter in the next bedroom was present and due to the patient being unresponsive with slow breaths contacted EMS. When EMS arrived, she started to vomit and they were able to lay her on her side. Per the daughter, the patient is normally talkative and can carry on a conversation, not verbal at the time of presentation to the ED. She was experiencing cold symptoms about a week and a half ago, daughter tested herself and the patient for COVID, both were positive as of several days prior to October 20. Daughter states patient had not been eating or drinking much due initially to copious amount of thick mucus and as of 2-3 days ago, food tasted poorly and she stopped eating all together. When I went into the room and asked the patient if she had any pain, she replied something about ice. When I asked her where she was, she replied [place] and then refrigerator. Head CT identifed a Hyperdense extra-axial hemorrhage is seen along the left parieto-occipital convexity measuring up to 12 mm and maximum thickness (image 19 of series 2).? There is no significant mass effect or midline shift.? Scattered foci of hyperdense hemorrhage are seen in the subarachnoid space within the bilateral frontal convexity, of the left sylvian fissure, and within the interventricular septum.? No intraparenchymal hemorrhage is seen.? Hypodensities in the subcortical and periventricular white matter compatible with chronic microvascular ischemic changes.? There is moderate cerebral and cerebellar parenchymal volume loss. She has a small left supraorbital scalp hematoma w/soft tissue edema, no skull fracture identified. She is afebrile blood pressure 171/84 heart rate 76 respiratory rate 15 oxygen saturation 98% on room air she weighs 57.5 kg with a BMI of 26.6. CBC and chemistries are unremarkable she has a mildly elevated glucose at 1:29 a.m. and COVID-19 PCR is positive. Patient History Medical History COVID-19 Essential hypertension Lewy body dementia Parkinsonian features Family & Social History Social History: household members children Prior Living Arrangements House Tobacco & Substance use: Smoking Status Former smoker alcohol intake never alcohol intake frequency holiday/special occasion Substance Use Type does not use Meds Home Medications and Allergies Home Medications Medication Instructions Recorded Confirmed Type diazepam 10 mg tablet 5 mg PO QPM ##0 08/03/16 10/25/22 History sertraline 100 mg tablet 200 mg PO QDAY ##0 08/03/16 10/25/22 History hydrocodone 5 mg-acetaminophen 325 1 tab PO Q6H PRN pain #10 tabs 10/21/22 10/25/22 Rx mg tablet alprazolam 0.5 mg tablet 0.5 mg PO BEDTIME PRN Sleep 10/25/22 10/25/22 History atorvastatin 10 mg tablet 10 mg PO BEDTIME 10/25/22 10/25/22 History bupropion HCl 300 mg 24 hr tablet, 300 mg PO QAM 10/25/22 10/25/22 History extended release carbidopa 25 mg-levodopa 100 mg 0.5 tab PO TID 10/25/22 10/25/22 History tablet Allergies Allergy/AdvReac Type Severity Reaction Status Date / Time lanolin [LANOLIN] Allergy Mild INFLAMED Verified 10/20/22 19:07 FACE bacitracin Allergy Unknown INFLAMMED Verified 10/20/22 19:07 [From NEOSPORIN SKIN ([id number])] neomycin Allergy Unknown INFLAMMED Verified 10/20/22 19:07 [From NEOSPORIN SKIN ([id number])] polymyxin B Allergy Unknown INFLAMMED Verified 10/20/22 19:07 [From NEOSPORIN SKIN ([id number])] citalopram [CITALOPRAM] AdvReac Unknown RECURRENT Verified 10/20/22 19:07 MIGRAINES Review of Systems Review of Systems ROS: Yes unobtainable due to mental status Exam Vital Signs (past 8 hours): - 10/25/22 19:25 10/25/22 19:22 10/25/22 19:22 Temperature 97.6 F Pulse Rate 87 85 Respiratory Rate 16 Blood Pressure 172/87 H 172/87 H Pulse Oximetry 96 97 Oxygen Delivery Method Room Air Room Air 10/25/22 19:40 10/25/22 19:47 10/25/22 19:47 Temperature Pulse Rate 74 74 Respiratory Rate 18 Blood Pressure 175/78 H Pulse Oximetry 96 97 Oxygen Delivery Method Room Air Room Air 10/25/22 20:00 10/25/22 20:00 10/25/22 20:30 Temperature Pulse Rate 69 Respiratory Rate 16 Blood Pressure 161/79 H 164/74 H Pulse Oximetry 96 Oxygen Delivery Method Room Air 10/25/22 20:30 10/25/22 21:00 10/25/22 21:00 Temperature Pulse Rate 71 71 Respiratory Rate 15 14 Blood Pressure 169/76 H Pulse Oximetry 96 97 Oxygen Delivery Method Room Air Room Air 10/25/22 21:30 10/25/22 21:30 10/25/22 22:36 Temperature Pulse Rate 71 76 Respiratory Rate 14 15 Blood Pressure 152/72 H 171/84 H Pulse Oximetry 97 98 Oxygen Delivery Method Room Air Oxygen Delivery Method Room Air Narrative Exam Narrative: Gen: Alert, confused, ill appearing 72 y.o. female, appears c omfortable and is lethargic HEENT: normocephalic, swelling and eccymosis of the left orbit, conjunctiva clear, sclera non-icteric, oral mucosa pink and moist Neck: supple, full ROM, no JVD, trachea is midline Resp: Lungs CTA, non-labored breathing CV: RRR, no murmur or rubs Abd: soft, non-tender, normoactive BTs Skin: no lesions or rashes, dry and intact Neuro: Confused speaking in word salad, though speech is clear Extremities: moves all 4 extremities, is ambulatory, negative Leena?s sign Psyche: unable to assess. Objective Labs 10/25/22 19:21 10/25/22 19:21 Labs: Laboratory Results - last 24 hr 10/25/22 10/25/22 10/25/22 19:21 19:21 19:23 WBC 7.6 RBC 4.44 Hgb 12.5 Hct 37.6 MCV 84.7 MCH 28.3 MCHC 33.4 RDW 13.8 Plt Count 248 Neut % (Auto) 55.0 Lymph % (Auto) 33.6 [place] % (Auto) 8.2 Eos % (Auto) 1.7 L Baso % (Auto) 1.5 Neut # (Auto) 4200 Lymph # (Auto) 2600 [place] # (Auto) 600 Eos # (Auto) 100 Baso # (Auto) 100 Sodium 139 Potassium 4.0 Chloride 105 Carbon Dioxide 21 L BUN 18 H Creatinine 0.85 Estimated GFR > 60 BUN/Creatinine Ratio 21.2 Glucose 129 H Calcium 9.0 SARS-CoV-2 (PCR) Positive H Assessment & Plan Assessment & Plan narrative: Helen Clayton will be observed for further pain control and to monitor her neurological status. Daughter states she is a DNR/DNI and would not want any i nvasive or heroic measures taken. Traumatic subarachnoid hemmorhage and occipital extra-axial hemmorhage, acute and present on admission - Pain control with oral tylenol, low dose hydrocodone, and tramadol - After lengthy discussion with patient's miguel and MCKENZIE, patient will not be transferred for more definitive care if her condition worsens, likely will be transitioned to comfort measures. Parkinsonian syndrome, chronic - Continue home dose of carbadopa levadopa when she is awake enough to take Lewy body dementia, chronic - She underwent neuropsychiatric evaluation at the [facility] in January 2022 which recommended medical management with an acctylcholinesterase inhibitor such as donepezil, revastigmine, or galantamine, however it does not appear she was initiated on any of these. - She was not recommended to be prescribed any antipsychotics, unless she develops behaviors harmful to herself or others. High blood pressure without the diagnosis of hypertension, acute -likely due to pain, consider a beta cristina Advanced care planning - See above 20 minutes - DaughterKristin provided a POLST indicating she is a DNR/DNI with limited intervention - Discussed limitations of this facility to aggressively manage progression of the subaracnoid bleed and that if the family wanted this in the case she worsened, the time to do it would be now rather than wait. Other independent historians: Miguel Foster Discussion of results, plan of care with independent HCP/other: ED provider Reviewed outside records: neuropsychiatric evaluation VTE Prophylaxis: Wells risk score 0 X Bilateral SCDs Pharmacological VTE prophylaxis contraindicated in the setting of and active brain bleed/hemorrhage. XPatient is placed into observation as her stay is not expected to exceed 2 midnights. FEN: IV fluids: NS at 100 ml/hour, diet: heart healthy when awake, labs: CBC, C/BMP, liver enzymes, Mag, PT/INR Consultants None Social determinants of health: unknown Dispo: probable d/c to SNF/rehab Code status: DNR/DNI as discussed with Kristin who is her surrogate and POA. Advanced care planning 20 minutes. X I have utilized all available immediate resources to obtain, update, or review of the patient's current medications VTE Deep Vein Thrombosis/Pulmonary Embolism Present on Admission: No MIPS - Admit I confirm the patient?s Advance Care Plan is present, Code status is documented, Surrogate decision maker is in patient?s record: Yes MIPS - DC The patient has current or prior documentation of left ventricular ejection fraction (LVEF) less than 40%, or moderate or severely depressed left ventricular systolic function.: No COVID-19 COVID-19 status: Positive Result date/Date tested (Pos, Neg/Pending): 10/25/22
[2022-10-25] MEDS: SODIUM CHLORIDE 0.45% 1,000 ML 100 ML IV (23:55)
[2022-10-26] VITALS (8 sets, daily range): BP systolic 142–180; BP diastolic 67–87; PULSE 55–87; RESP 16–20; TEMP 36.2–37; O2SAT 95–98
[2022-10-26] MEDS: ONDANSETRON 4 MG/2 ML INJ IV (04:55)
[2022-10-26] MEDS: CARBIDOPA-LEVODOPA 25/100 TABLET 0.5 EACH PO ×3 (09:02→20:45)
[2022-10-26] MEDS: SERTRALINE 50 MG TABLET 200 MG PO (09:02)
[2022-10-26] MEDS: buPROPion XL 150 MG TAB 300 MG PO (09:02)
[2022-10-26] MEDS: TRAMADOL 50 MG TABLET PO ×2 (09:06→20:43)
[2022-10-26] MEDS: SODIUM CHLORIDE 0.45% 1,000 ML 100 ML IV ×2 (10:24→20:02)
[2022-10-26] MEDS: ACETAMINOPHEN 325 MG TABLET 650 MG PO ×2 (12:04→18:10)
--- NOTE | 2022-10-26 14:09 | CM.DANOTE ---
Patient is a 72 yo female who was admitted on 10/25/22 for GLF. Pt has MCR and [employer] for insurance and her PCP is Katia Thomas. EMR was reviewed. Per MD, pt with Parkinsons and Lewy Body dementia at baseline and admitted after GLF with subdural hemmorhage and COVID+. SW called pt's Dtr/DPOA Kristin due to COVID isolation precautions and pt's dementia and explained role and she confirms that she lives with pt in [place] and pt is somewhat independent with ADL's at baseline but needs simple commands and even takes the bus 3 days a week for adult day activities. Pt does not typically have exit seeking behaviors and no dementia behaviors and very pleasant and chatty. Dtr states that pt recently had [facility] and they discharged pt about 3 weeks ago because pt was doing so well with HH was present but was not really able to follow through on exercises on her own once HH left. Dtr also denies any SNF hx for the pt and SW discussed possible barriers to SNF placement being pt's dementia dx and COVID+ status. Dtr states both herself and pt initially tested positive with a home kit but then Dtr brought pt to ED on 10/20/22 and tested COVID+. SW discussed that pt likely would need to be 10 days out from COVID to be off quarantine unless a facility like [facility] that already has COVID+ pts could accept her. Pt is quite drowsy and tired today and headache from her brain bleed and therefore likely not appropriate to work with PT/OT today but likely needs to be ordered tomorrow to help determine SNF vs HH at d/c. Plan: SW to follow closely for PT/OT orders tomorrow Tues if pt medically appropriate to determine HH vs SNF at d/c. Pt recently had [facility]. ROCIO Fonseca Discharge Planning/Care Management CM Discharge Assessment Start: 10/26/22 14:04 Freq: Status: Active Protocol: Document 10/26/22 14:05 BF (Rec: 10/26/22 14:09 [id number]) Discharge Planning Assessment Assigned Psych Sales Specialist ROCIO Baptiste DPOA/Assigned Designee Name Dtdyana Foster Contact Information [phone] Advance Directives? Yes: POLST form in chart Advance Directives on File No History Provided By Family Member,Medical Record Has Patient been admitted in last 30 No days? Prior Living Arrangements House Household Members children Type of transporation used prior to Relies on Others admit Independent with ADL's No Is patient alert and oriented? No Needs Assistance With Meal Prep,Managing Medications ,Home Chores / Shopping Caregiver for Another No Comment just discharged from [facility] 3 weeks ago DME Already Rented / Owned FWW / Walker,Cane Patient/Family Preference Intermediate Facility,Home with Home Health Comment SNF vs pending progress and PT eval Barriers to Discharge Yes Comment COVID+ from 10/20/22 and dementia Discharge Plan Intermediate Facility Transportation Arrangement Dtr if safe for home, facilty van if SNF Additional Comment Pending PT/OT eval likely tomorrow when medically stable Medicare Choice List Provided Yes Medicare choice list reviewed on family electronic tablet with SNF/HH Preference [facility] to stay in town, but any that could accept if SNF needed Whiteboard Updated in Patient Room with Yes name and ext. # of Psych Sales Specialist Review Status In Process Please Provide Date Initial DC 10/26/22 Assessment Was Performed Next Review Type Continued Stay Review
--- NOTE | 2022-10-26 16:55 | P.PN_ITS ---
Subjective Subjective Interval history: Helen Clayton is a 72 y.o. female with new diagnosis of Lewy Body dementia, Parkinsonianism, apparently was in her bedroom, pivoted as she was either getting out of or into bed, tripped over her feet and fell face first. Sustained both subarachnoid and subdural hematoma. Patient only symptom she complains of is a slight headache at the top of her head. No other areas of pain. Not even complain of pain in the bruising near her left eye. Exam Vital Signs (past 8 hours): - 10/26/22 10:50 Temperature 98.0 F Pulse Rate 87 Respiratory Rate 20 Blood Pressure 166/77 H Pulse Oximetry 97 Oxygen Delivery Method Room Air Narrative Exam Narrative: Gen: Alert, ill appearing female, appears comfortable HEENT: normocephalic, swelling and eccymosis of the left orbit, conjunctiva clear, sclera non-icteric, oral mucosa pink and moist Neck: supple, full ROM, no JVD, trachea is midline Resp: Lungs CTA, non-labored breathing CV: RRR, no murmur or rubs Abd: soft, non-tender, normoactive BTs Skin: no lesions or rashes, dry and intact Neuro: Does not speak much but does understand what I am asking her and answers appropriately Extremities: moves all 4 extremities, negative Leena?s sign Psyche: unable to assess. Objective Labs 10/25/22 19:21 10/25/22 19:21 Labs: Laboratory Results - last 24 hr 10/25/22 10/25/22 10/25/22 19:21 19:21 19:23 WBC 7.6 RBC 4.44 Hgb 12.5 Hct 37.6 MCV 84.7 MCH 28.3 MCHC 33.4 RDW 13.8 Plt Count 248 Neut % (Auto) 55.0 Lymph % (Auto) 33.6 Stevens % (Auto) 8.2 Eos % (Auto) 1.7 L Baso % (Auto) 1.5 Neut # (Auto) 4200 Lymph # (Auto) 2600 [place] # (Auto) 600 Eos # (Auto) 100 Baso # (Auto) 100 Sodium 139 Potassium 4.0 Chloride 105 Carbon Dioxide 21 L BUN 18 H Creatinine 0.85 Estimated GFR > 60 BUN/Creatinine Ratio 21.2 Glucose 129 H Calcium 9.0 SARS-CoV-2 (PCR) Positive H [facility] Medical History COVID-19 Essential hypertension Lewy body dementia Parkinsonian features Social History household members: children Smoking Status: Former smoker alcohol intake: never Assessment & Plan Assessment & Plan narrative: Traumatic subarachnoid hemmorhage and occipital extra-axial hemmorhage, acute and present on admission - Pain control with oral tylenol, low dose hydrocodone, and tramadol - After lengthy discussion by nurse practitioner on admission with patient's daugher and POA, patient will not be transferred for more definitive care if her condition worsens, likely will be transitioned to comfort measures. -need to repeat CT head tomorrow to ensure no progression of the subarachnoid hemorrhage and subdural hematoma. Parkinsonian syndrome, chronic - Continue home dose of carbadopa levadopa when she is awake enough to take Lewy body dementia, chronic - She underwent neuropsychiatric evaluation at the [facility] in January 2022 which recommended medical management with an acctylcholinesterase inhibitor such as donepezil, revastigmine, or galantamine, however it does not appear she was initiated on any of these. - She was not recommended to be prescribed any antipsychotics, unless she develops behaviors harmful to herself or others. High blood pressure without the diagnosis of hypertension, acute -likely due to pain, consider a beta cristina -need better control intracranial bleeds. Add metoprolol 25 mg b.i.d. with 1st dose now. COVID-19 -1st positive test approximately 10 days prior, provide isolation while in the hospital VTE Prophylaxis: Wells risk score 0? X Bilateral SCDs Pharmacological VTE prophylaxis contraindicated in the setting of and active brain bleed/hemorrhage. Dispo: probable d/c to SNF/rehab Code status: DNR/DNI as discussed with Kristin who is her surrogate and POA. Time Spent With Patient Critical Care time: I spent a total of [] minutes of critical care time on this patient's care today; this time is exclusive of procedural time.
[2022-10-26] MEDS: METOPROLOL IR 25 MG TABLET PO ×2 (18:00→20:45)
[2022-10-26] MEDS: ATORVASTATIN 20 MG TABLET 10 MG PO (20:43)
[2022-10-27 04:35] VITALS: BP 153/67; PULSE 55; RESP 16; TEMP 35.8; O2SAT 98
[2022-10-27 07:00] VITALS: O2SAT 100
[2022-10-27] MEDS: TRAMADOL 50 MG TABLET PO ×2 (07:21→17:01)
[2022-10-27 08:00] VITALS: BP 156/81; PULSE 82; RESP 19; TEMP 36; O2SAT 100
[2022-10-27] MEDS: CARBIDOPA-LEVODOPA 25/100 TABLET 0.5 EACH PO ×3 (08:10→16:59)
--- NOTE | 2022-10-27 09:30 | DI.CT.S_ITS ---
PROCEDURE: CT HEAD/BRAIN WO CON INDICATIONS: Assess progression of subdural and subarachnoid hemorrhage TECHNIQUE: Noncontrast 4.5 mm thick angled axial sections acquired from the foramen magnum to the vertex, with coronal and sagittal reformats. For radiation dose reduction, the following was used: automated exposure control, adjustment of mA and/or kV according to patient size. COMPARISON: [facility], CT, CT HEAD/BRAIN WO CON, 10/25/2022, 19:24. FINDINGS: Image quality: Excellent. CSF spaces: Similar small foci of subarachnoid hemorrhage overlying the bilateral frontal convexities and within the left lateral sulcus. Slightly decreased size of the left-sided subdural hematoma, with interval decrease in attenuation. Maximum diameter measures 8 millimeters, previously 11 mm. Trace layering hemorrhage within the right lateral ventricle. Brain: Slightly increased size of the intraparenchymal hematoma of the left anterior frontal lobe, measuring 1.5 by 2.7 centimeters, previously 1.5 x 1.2 centimeters. Underlying edema is present, increased from prior. No midline shift. No herniation. Skull and face: Calvarium and visualized facial bones are intact, without suspicious lesions. Sinuses: Opacification of the right maxillary sinus. Air-fluid levels within the sphenoid sinuses. IMPRESSION: 1. Slightly increased size of the intraparenchymal hematoma along the left anterior frontal lobe, measuring 1.5 x 2.7 centimeter, previously 1.5 x 1.2 centimeter. Surrounding edema has slightly increased, but no midline shift or herniation. 2. Similar small volume subarachnoid hemorrhage. 3. Similar small to moderate subdural hematoma overlying the left cerebral convexity, maximum diameter of 8 millimeters, previously 11 millimeters. 4. Sphenoid and right maxillary sinusitis. Dictated by: Abdirizak Ortiz M.D. on 10/27/2022 at 10:27 Approved by: Abdirizak Ortiz M.D. on 10/27/2022 at 10:34
[2022-10-27] MEDS: buPROPion XL 150 MG TAB 300 MG PO (10:09)
[2022-10-27] MEDS: SERTRALINE 50 MG TABLET 200 MG PO (10:10)
[2022-10-27] MEDS: METOPROLOL IR 25 MG TABLET PO ×2 (10:10→21:00)
[2022-10-27] MEDS: ACETAMINOPHEN 325 MG TABLET 650 MG PO ×2 (11:53→21:00)
[2022-10-27 12:00] VITALS: BP 156/66; PULSE 60; RESP 18; TEMP 36.3; O2SAT 98
--- NOTE | 2022-10-27 13:43 | PM.PN.1 ---
Subjective Subjective Interval history: Helen Clayton is a 72 y.o. female with new diagnosis of Lewy Body dementia, Parkinsonianism, apparently was in her bedroom, pivoted as she was either getting out of or into bed, tripped over her feet and fell face first. Sustained both subarachnoid and subdural hematoma. Patient only symptom she complains of is a slight headache at the top of her head. No other areas of pain. Not even complain of pain in the bruising near her left eye. Family at bedside report decline in her cognition from baseline but no focal abnormalities thus far. Exam Vital Signs (past 8 hours): - 10/27/22 08:00 10/27/22 07:00 10/27/22 12:00 Temperature 96.8 F L 97.3 F L Pulse Rate 82 60 Respiratory Rate 19 18 Blood Pressure 156/81 H 156/66 H Pulse Oximetry 100 100 98 Oxygen Delivery Method Room Air Oxygen Flow Rate 0 0 Oxygen Delivery Method Room Air Oxygen Flow Rate 0 Narrative Exam Narrative: Gen: alert elderly female, pleasant, no acute distress. HEENT: normocephalic, swelling and eccymosis of the left orbit, conjunctiva clear, sclera non-icteric, oral mucosa pink and moist Neck: supple, full ROM, no JVD, trachea is midline Resp: Lungs CTA, non-labored breathing CV: RRR, no murmur or rubs Abd: soft, non-tender, normoactive BTs Skin: no lesions or rashes, dry and intact Neuro: alert, oriented to name, mild confusion, no slurred speech, gross strength 5/5 in extremities, no deficits in sensation to light touch, face is symmetric. Extremities: no edema or joint effusions. Objective Labs 10/25/22 19:21 10/25/22 19:21 [facility] Medical History COVID-19 Essential hypertension Lewy body dementia Parkinsonian features Social History household members: children Smoking Status: Former smoker alcohol intake: never Assessment & Plan Assessment & Plan narrative: Traumatic subarachnoid hemmorhage and occipital extra-axial hemmorhage, acute and present on admission - After lengthy discussion by nurse practitioner on admission with patient's miguel and MCKENZIE, patient will not be transferred for more definitive care if her condition worsens, likely will be transitioned to comfort measures. -repeat head CT showed slight expansion in sub-arachnoid hemorrhage, mild worsening of confusion clinically -family is interested in SNF possibly if her bleeding stabilizes, or if worsens okay with hospice. Will repeat head CT this evening, if bleeding stabilizes patient can work with therapies. Parkinsonian syndrome, chronic - Continue home dose of carbadopa levadopa Lewy body dementia, chronic - She underwent neuropsychiatric evaluation at the [facility] in January 2022 which recommended medical management with an acctylcholinesterase inhibitor such as donepezil, revastigmine, or galantamine, however it does not appear she was initiated on any of these. - She was not recommended to be prescribed any antipsychotics, unless she develops behaviors harmful to herself or others. High blood pressure without the diagnosis of hypertension, acute -Added metoprolol 25 mg b.i.d. Continue to optimize given hemorrhage. COVID-19 -1st positive test approximately 10 days prior, provide isolation while in the hospital VTE Prophylaxis: Wells risk score 0? X Bilateral SCDs Pharmacological VTE prophylaxis contraindicated in the setting of and active brain bleed/hemorrhage. Dispo: probable d/c to SNF/rehab or hospice depending on bleeding. Code status: DNR/DNI as discussed with Kristin who is her surrogate and POA. Time Spent With Patient Critical Care time: I spent a total of [] minutes of critical care time on this patient's care today; this time is exclusive of procedural time.
--- NOTE | 2022-10-27 14:52 | CM.DPNOTE ---
Addendum entered by ROCIO Ken 10/27/22 14:56: ADD: Patient is COVID+ may limit SNF options Original Note: DCP Note According to DR Thomas- plan discussed w/dtr Kristin who is hopeful patient will discharge to SNF when medically stable Dr Thomas reports that patient's CT today shows an increase in the brain bleed so therapies are on hold Therapies will resume when Dr Thomas or attending provider feels brain bleed is stable; otherwise plan may need to be discussed again CM team will need to continue to follow closely and discuss SNF options with daughter JW
[2022-10-27 16:00] VITALS: BP 164/60; PULSE 58; RESP 18; TEMP 35.9; O2SAT 98
[2022-10-27] MEDS: ONDANSETRON 4 MG/2 ML INJ IV (18:31)
[2022-10-27] MEDS: SODIUM CHLORIDE 0.45% 1,000 ML 100 ML IV (18:33)
[2022-10-27 20:00] VITALS: BP 173/85; PULSE 59; RESP 16; TEMP 35.8; O2SAT 98
--- NOTE | 2022-10-27 20:00 | DI.CT.S_ITS ---
PROCEDURE: CT HEAD/BRAIN WO CON INDICATIONS: reassess bleeding TECHNIQUE: Noncontrast 4.5 mm thick angled axial sections acquired from the foramen magnum to the vertex, with coronal and sagittal reformats. For radiation dose reduction, the following was used: automated exposure control, adjustment of mA and/or kV according to patient size. COMPARISON: [facility], CT, CT HEAD/BRAIN WO CON, 10/27/2022, 9:46. FINDINGS: Image quality: Excellent. Basal cisterns remain patent without evidence of downward herniation. There is a left-sided subdural hematoma with an acute component layering dependently. No significant change in hematoma thickness. A small amount of intraventricular hemorrhage layering dependently is seen in the atria of the lateral ventricles. No indication of developing hydrocephalus. Acute intraparenchymal hemorrhage along the anterior frontal cortices, left more significant than right. Left side hematoma is stable measuring 2.4 cm in oblique transverse diameter. Curvilinear subcortical hemorrhages are unchanged. Right maxillary sinus remains opacified. There is thickening in the ethmoid air cells. No mastoid effusions. There is dependent fluid in the sphenoid sinuses. IMPRESSION: 1. No significant change to the size of left frontal intraparenchymal hematoma or the small cortical bilateral frontal hemorrhages. 2. No change in left subdural hematoma thickness or new [id number] midline shift. 3. Stable intraventricular blood without evidence of developing hydrocephalus. Dictated by: Rosalia Quiñonez M.D. on 10/27/2022 at 20:31 Approved by: Rosalia Quiñonez M.D. on 10/27/2022 at 20:40
[2022-10-27] MEDS: ATORVASTATIN 20 MG TABLET 10 MG PO (21:00)
[2022-10-27] MEDS: METOCLOPRAMIDE 10 MG/2 ML INJ 5 MG IV (21:01)
[2022-10-28] VITALS (8 sets, daily range): BP systolic 126–170; BP diastolic 55–76; PULSE 51–65; RESP 15–17; TEMP 35.7–36.6; O2SAT 92–99
[2022-10-28] MEDS: LORazepam 2 MG/ML INJ 0.5 MG IV ×2 (01:55→19:10)
--- NOTE | 2022-10-28 02:46 | PC.NURSE ---
At aproximately 0100 pt attempted to get out of bed. Pt noticeably more confused and aggressive than previous interactions. Pt offered bathroom, pain/nausea meds, and refused. After multiple attempts to try and redirect pt back into bed, this RN and TECTONOPHYSICIST had to physically move pt back into bed. Pt continued to try and get up, becoming more violent and tried to hit, pinch and bite staff. shearing machine tender notified and MD. IV ativan ordered and given. Pt shortly after pulled out IV and was continually trying to exti bed. Pt's daughter was called in to try and help redirect patient in order to avoid restraints.
[2022-10-28] MEDS: TRAMADOL 50 MG TABLET PO ×2 (04:52→20:32)
[2022-10-28] MEDS: ACETAMINOPHEN 325 MG TABLET 650 MG PO ×2 (07:08→20:33)
[2022-10-28] MEDS: buPROPion XL 150 MG TAB 300 MG PO (08:46)
[2022-10-28] MEDS: CARBIDOPA-LEVODOPA 25/100 TABLET 0.5 EACH PO ×3 (08:46→16:21)
[2022-10-28] MEDS: METOPROLOL IR 25 MG TABLET PO (08:48)
[2022-10-28] MEDS: SERTRALINE 50 MG TABLET 200 MG PO (08:48)
--- NOTE | 2022-10-28 11:25 | P.PN_ITS ---
Subjective Subjective Interval history: Helen Clayton is a 72 y.o. female with new diagnosis of Lewy Body dementia, Parkinsonianism, apparently was in her bedroom, pivoted as she was either getting out of or into bed, tripped over her feet and fell face first. Sustained both subarachnoid and subdural hematoma. Patient only symptom she complains of is a slight headache at the top of her head which is improved to day. No other areas of pain. Not even complain of pain in the bruising near her left eye. overnight head CT repeated and showed stable bleeding, can work with therapies today. Exam Vital Signs (past 8 hours): - 10/28/22 04:00 10/28/22 09:08 10/28/22 07:00 Temperature 96.3 F L 97.8 F Pulse Rate 65 55 L Respiratory Rate 17 16 Blood Pressure 127/64 126/57 L Pulse Oximetry 98 96 96 Oxygen Delivery Method Room Air Oxygen Flow Rate 0 0 Oxygen Delivery Method Room Air Oxygen Flow Rate 0 Narrative Exam Narrative: Gen: alert elderly female, pleasant, no acute distress. HEENT: normocephalic, swelling and eccymosis of the left orbit, conjunctiva clear, sclera non-icteric, oral mucosa pink and moist Neck: supple, full ROM, no JVD, trachea is midline Resp: Lungs CTA, non-labored breathing CV: RRR, no murmur or rubs Abd: soft, non-tender, normoactive BTs Skin: no lesions or rashes, dry and intact Neuro: alert, oriented to name, mild confusion, no slurred speech, gross strength 5/5 in extremities, no deficits in sensation to light touch, face is symmetric. Extremities: no edema or joint effusions. Objective Labs 10/25/22 19:21 10/25/22 19:21 [facility] Medical History COVID-19 Essential hypertension Lewy body dementia Parkinsonian features Social History household members: children Smoking Status: Former smoker alcohol intake: never Assessment & Plan Assessment & Plan narrative: Traumatic subarachnoid hemmorhage and occipital extra-axial hemmorhage, acute and present on admission - After lengthy discussion by nurse practitioner on admission with patient's miguel and POA, patient will not be transferred for more definitive care if her condition worsens. -repeat head CT showed slight expansion in sub-arachnoid hemorrhage, mild worsening of confusion clinically, 3rd head CT showed stability. Okay to work with PT and OT today. -family is interested in SNF possibly, depending on PT/OT evaluations Parkinsonian syndrome, chronic - Continue home dose of carbadopa levadopa Lewy body dementia, chronic - She underwent neuropsychiatric evaluation at the [facility] in January 2022 which recommended medical management with an acctylcholinesterase inhibitor such as donepezil, revastigmine, or galantamine, however it does not appear she was initiated on any of these. - She was not recommended to be prescribed any antipsychotics, unless she develops behaviors harmful to herself or others. High blood pressure without the diagnosis of hypertension, acute -Added metoprolol 25 mg b.i.d. BP improved today. Sinus bradycardia in the 50s, will decrease to daily and change to extended release succinate. COVID-19 -1st positive test approximately 10 days prior at home, remains on isolation, can possibly be discontinued working with infection control department here to see about if this can be discontinued now or after typical 10 days (from 10/20 or first positive test). VTE Prophylaxis: Wells risk score 0? X Bilateral SCDs Pharmacological VTE prophylaxis contraindicated in the setting of and active brain bleed/hemorrhage. Dispo: probable d/c to SNF/rehab depending on PT/OT evaluations Code status: DNR/DNI as discussed with Kristin who is her surrogate and POA. Time Spent With Patient Critical Care time: I spent a total of [] minutes of critical care time on this patient's care today; this time is exclusive of procedural time.
--- NOTE | 2022-10-28 11:30 | PT.IIE ---
Current Diagnoses Nontraumatic subarachnoid hemorrhage, unspecified (10/25/22) Nontraumatic subdural hemorrhage, unspecified (10/25/22) Medical History (Last Reviewed 10/26/22 @ 00:40 by Hector Wood DO) COVID-19 Essential hypertension Lewy body dementia Parkinsonian features Physical Therapy Inpatient Evaluation/Re-Eval M1 PT/OT-IP Prior Functional Status Start: 10/28/22 12:23 Freq: NEEDED Status: Active Protocol: Document 10/28/22 11:30 DLM (Rec: 10/28/22 12:51 DLM [id number]) Medical Review Prior Functional Status Medical History Reviewed Yes Communication WFL, impaired cognition associated with Lewy Body dementia Mobility and Gait ambulates without device, hx short shuffling gait pattern Activities of Daily Living and IADL's independent dressing but slow and takes a long time, Daughter does housekeeping and cooking Prior Functional Level (Other details) Hx of falls, attended out-pt PT in 01/2022 for balance training lunch counter manager note indicates she takes a bus 3x/week to Adult day care program. Social History Household Members children Living Arrangements House Number of Stairs To Enter/Railing? 3 steps without a rail Home Equipment Front Wheel Walker Additional Social History Comment owns shower chair but does not use it M2 PT-IP Current Condition Start: 10/28/22 12:23 Freq: NEEDED Status: Active Protocol: Document 10/28/22 11:30 DLM (Rec: 10/28/22 12:51 DLM [id number]) Physical Therapy Current Condition Current Condition Evaluation Date 10/28/22 Treatment Diagnosis Subdural hemorrhage and subarachnoid, impaired balance and dizziness Onset Date 10/25/22 M3 PT-IP Subjective Start: 10/28/22 12:23 Freq: NEEDED Status: Active Protocol: Document 10/28/22 11:30 DLM (Rec: 10/28/22 12:51 DLM [id number]) Subjective Physical Therapy Visit Type Type Initial Evaluation Visit Start Time 11:00 Visit Stop Time 11:30 Total Visit Minutes 30 Notes pt is COVID-19 (+) on airborne precautions, first tested positive on 10/20/22 Number of OPERATOR/ASSISTANT FOREMAN Visits 0 Physical Therapy Visit Comments Patient Comments She wants to know what she has to do to be able to go home. Patient Goals Discharge home M4 PT-IP Mobility and Gait Start: 10/28/22 12:23 Freq: NEEDED Status: Active Protocol: Document 10/28/22 11:30 DLM (Rec: 10/28/22 12:51 [facility] [id number]) PT-Bed Mobility Assessment Supine to Sit Supine to Sit Contact Guard Assistance, Minimal Assistance Sit to Supine Sit to Supine Minimal Assistance Scooting Scooting to Edge of Bed Contact Guard Assistance PT-Transfer Assessment Sit to and From Stand Sit to and from Stand Contact Guard Assistance, Minimal Assistance,Use of Upper Extremities Equipment Transfer Assistive Device Gait Belt,Front Wheeled Walker Transfers Transfer Destination Chair,Toilet Transfer Technique Stand Step Pivot Transfer Ability Level of Assist Minimal Assistance,Use of Upper Extremities Comments Mobility Comments Pt reports being dizzy when up . She is light sensitive.Pt has a black eye on left. Gait Assessment Gait Gait Assistance Required: Minimum Assistance Distance (Feet) 10 Assistive Devices Assistive Device Gait Belt,Front Wheeled Walker Gait Deviations General Gait Pattern Decreased Stride Length, Decreased Feet Clearance Factors Limiting Gait Function Factors Limiting Gait Function Decreased Activity Tolerance, Poor Balance,Poor Safety Awareness Comments Gait Comments During gait without a device she leans to left. During gait with fWW she shows improved balance but still has intermittent post losses of balance. PT-Balance Assessment Sitting Balance and Reactions Static Sitting Balance Ability Good Dynamic Sitting Balance Ability Fair Standing Balance and Reactions Static Standing Balance Ability Fair Dynamic Standing Balance Ability Poor Comments Other Balance Tests/Deviations/Treatment Left lean and losses of : balance standing and during gait. She also has intermittent posterior sway and losses of balance in standing with slow/delayed balance reactions M5 PT-IP Objective Assessments Start: 10/28/22 12:23 Freq: NEEDED Status: Active Protocol: Document 10/28/22 11:30 DL (Rec: 10/28/22 12:51 [facility] [id number]) Orientation Orientation/Cognition Level of Alertness Alert Orientation Name Safety Awareness Decreased Safety Awareness Memory Description Short Term Impaired,Halfway Impaired Comments slow mental processing noted, she can verbalize needs but she is soft spoken and does not talk very much, she appears to know she is not home but does not know where she is Gross Range of Motion Upper Extremity ROM Assessment Within Functional Limits Lower Extremity ROM Assessment Within Functional Limits Strength Upper Extremity Strength Assessment Within Functional Limits Lower Extremity Strength Assessment Within Functional Limits Coordination Assessment Assessment Coordination Comments bradykinetic in general Sensation Assessment Sensation Gross Sensation WNL Muscle Tone Muscle Tone WNL Yes M6 PT-IP Treatment Start: 10/28/22 12:23 Freq: NEEDED Status: Active Protocol: Document 10/28/22 11:30 DLM (Rec: 10/28/22 12:51 DLM [id number]) Physical Therapy Treatment Other Treatments Other Treatment Performed coordinated treatment with OT to do ADL's while up, pt returned to bed after activity M7 PT-IP Assessment and Plan Start: 10/28/22 12:23 Freq: NEEDED Status: Active Protocol: Document 10/28/22 11:30 DLM (Rec: 10/28/22 12:51 DLM [id number]) PT Summary Assessment and Plan Potential Rehabilitation Potential Fair Status of Condition at Evaluation Evolving Summary Impairments Balance,Bed Mobility,Transfers ,Gait,Activity Tolerance Assessment Summary Helen is alert and resting in bed. She can not recall falling at home. She reports dizziness when up moving. She is also light sensitive at this time. She shows good participation in therapy. She is able to ambulate in the room with hand held assist on left or use of the FWW. She has a left sided lean during gait as well as post losses of balance. Her balance reactions are slow and delayed . She appears to have a combination of symptoms from her head injury on top of Parkinsons. Her dizziness appears to be related to her head injury. No significant changes in vital signs seen while she was up. She could discharge home with her Daughter if her Daughter can provide 24/7 assistance. If her Daughter can not care for her she will need SNF rehab. Goals Bed Mobility Goal Independent Transfer Goal Standby Assistance,Front Wheeled Walker Gait Goal Standby Assistance,Front Wheel Walker Gait Distance 80 feet Other Goals 3 steps with min assist Days to Meet Goals 7 Frequency of Treatment Frequency Of Treatment Once a Day Treatment Plan Physical Therapy Treatment Plan Bed Mobility Training,Transfer Training,Gait Training, Therapeutic Exercise,Balance Retraining,Discharge Planning, Neuromuscular Re-ed Precautions Other Precautions high fall risk, cognitive impairments, dizzy when up Recommendations To Nursing Amount of Assist Needed 1 Person Assist Discharge Recommendations PT Discharge Recommendations Home with 24/7 Assist Available,Home Health Other Discharge Recommendations If Daughter is able to care for her otherwise she will need SNF rehab Equipment Needed for Home Before clarify she has a FWW at home Discharge Transportation Needs at Discharge Private Vehicle
--- NOTE | 2022-10-28 11:56 | OT.IP.EVAL ---
Current Diagnoses Nontraumatic subarachnoid hemorrhage, unspecified (10/25/22) Nontraumatic subdural hemorrhage, unspecified (10/25/22) Past Medical History (Last Reviewed 10/26/22 @ 00:40 by Hector Wood DO) COVID-19 Essential hypertension Lewy body dementia Parkinsonian features Occupational Therapy Inpatient Evaluation/Re-Eval M1 PT/OT-IP Prior Functional Status Start: 10/28/22 12:23 Freq: NEEDED Status: Active Protocol: Document 10/28/22 11:30 DLM (Rec: 10/28/22 12:51 DLM [id number]) Medical Review Prior Functional Status Medical History Reviewed Yes Communication WFL, impaired cognition associated with Lewy Body dementia Mobility and Gait ambulates without device, hx short shuffling gait pattern Activities of Daily Living and IADL's independent dressing but slow and takes a long time, Daughter does housekeeping and cooking Prior Functional Level (Other details) Hx of falls, attended out-pt PT in 01/2022 for balance training rehabilitation manager note indicates she takes a bus 3x/week to Adult day care program. Social History Household Members children Living Arrangements House Number of Stairs To Enter/Railing? 3 steps without a rail Home Equipment Front Wheel Walker Additional Social History Comment owns shower chair but does not use it M2 OT-IP Current Condition Start: 10/28/22 13:09 Freq: Status: Active Protocol: Document 10/28/22 11:15 [facility] (Rec: 10/28/22 13:46 [facility] [id number]) Occupational Therapy Current Condition Current Condition Evaluation Date 10/28/22 Treatment Diagnosis Subdural hemmorhage Diagnosis Onset Date 10/25/22 M3 OT- IP Subjective and Pain Start: 10/28/22 13:09 Freq: Status: Active Protocol: Document 10/28/22 11:15 [facility] (Rec: 10/28/22 13:46 [facility] [id number]) OT- Subjective Occupational Therapy Visit Type Type Initial Evaluation Visit Start Time 11:15 Visit Stop Time 11:56 Total Visit Minutes 41 Occupational Therapy Visit Comments Patient Comments Pt agreed to get up to use the bathroom do grooming/oral care needs at the sink. Patient/Caregiver Goals TO go home. M4 OT- IP ADL's Start: 10/28/22 13:09 Freq: Status: Active Protocol: Document 10/28/22 11:15 [facility] (Rec: 10/28/22 13:46 [facility] [id number]) OT [id number] Comments OT Self-Feeding Comments Not at meal time. OT ADL-Grooming General Evaluation Grooming Ability Standby Assistance Areas Needing Assistance Retrieving/Set-up of Grooming Items Comments OT Grooming Comments set-up assist whiel standing at the sink with FWW OT ADL-Oral Care General Eval Oral Care Ability Independent OT ADL-Dressing General Eval Lower Body Dressing Ability Minimal Assistance Comments OT Dressing Comments Pt able to fabricio/doff her socks with increased time and CGA for balance and needing assist to help fabricio brief over her feet. OT ADL-Toileting General Evaluation Toileting Ability Minimal Assistance Areas Needing Assistance Manage Clothing Comments OT Toileting Comments Assist for brief, pt able to wipe on her own OT ADL-Bathing Comments OT Bathing Comments Not performed M5 OT- IP IADL's Start: 10/28/22 13:09 Freq: Status: Active Protocol: Document 10/28/22 11:15 [facility] (Rec: 10/28/22 13:46 [facility] [id number]) OT-Instrumental Activities of Daily Living Deficits IADL Deficits Identified Deficits Home Safety Awareness Awareness of Need for Assistance at Home Decreased Awareness Ability to Problem Solve Emergency Unable to Problem Solve Situations Medication Management Medication Management Caregiver Administers Money Management Money Management Caregiver Provides Assistance Meal Preparation Meal Preparation Caregiver Provides Assist Survey Worker Survey Worker Caregiver Provides Assist Driving Driving Caregiver Provides Assist M6 OT- IP Functional Cognition Start: 10/28/22 13:09 Freq: Status: Active Protocol: Document 10/28/22 11:15 [facility] (Rec: 10/28/22 13:46 [facility] [id number]) Cognitive Factors Limiting Selfcare Function Cognitive Ability Level of Alertness Alert,Confusional State Patient Orientation Name Attention Span Ability Capable of Focused Attention, Capable of Sustained Attention Ability to Follow Commands Able to Follow One Step Commands with Increased Time, Able to Follow One Step Commands with Repetition Memory Description Short Term Impaired,Working Impaired Cognitive Comments Cognitive Assessment Comments Pt slow to process and move and needing cues to help sequence through task of ADl needs for completeness. Pt was cooperative and pleasant during OT eval. OT- Vision and Hearing OT- Hearing Assessment OT- Hearing Assessment WFL OT- Vision Assessment Vision Assessment Comments Pt eyes sensitive to sunlight and shade pulled down. M7 OT- IP Mobility and Balance Start: 10/28/22 13:09 Freq: Status: Active Protocol: Document 10/28/22 11:15 [facility] (Rec: 10/28/22 13:46 [facility] [id number]) OT- Bed Mobility Assessment Supine to Sit Supine to Sit Assist Contact Guard Assistance, Minimal Assistance Sit to Supine Sit to Supine Assist Minimal Assistance OT-Transfer Assessment Sit to and From Stand Sit to and from Stand Minimal Assistance Transfers Transfer Ability Minimal Assistance,Moderate Assistance Technique Transfer Destination Bed,Toilet Devices Transfer Assistive Devices None,Gait Belt,Front Wheeled Walker Comments Mobility Comments Pt with hand held assist needing from LIZZETH to MODA as pt tends to lean to the left and a bit unsteady on her feet . Pt steadier with the FWW but still needing assist to guide the FWW during turns and assist for balance as pt at times leans posteriorly. OT- Balance Assessment Sitting Balance and Reactions Static Sitting Balance Ability Good Dynamic Sitting Balance Ability Fair Standing Balance and Reactions Static Standing Balance Ability Fair Dynamic Standing Balance Ability Poor M8 OT- IP Objective Assessments Start: 10/28/22 13:09 Freq: Status: Active Protocol: Document 10/28/22 11:15 [facility] (Rec: 10/28/22 13:46 [facility] [id number]) OT Gross Range of Motion Upper Extremity Range of Motion Assessment Within Functional Limits OT Strength Upper Extremity Strength Assessment Within Functional Limits OT- Coordination Assessment Upper Extremity Finger to Nose Test Left UE Impaired Comments Coordination Comments slightly off for left hand on first attempt M9 OT- IP Assessment and Plan Start: 10/28/22 13:09 Freq: Status: Active Protocol: Document 10/28/22 11:15 [facility] (Rec: 10/28/22 13:46 [facility] [id number]) OT Summary Assessment and Plan Potential Rehabilitation Potential Good Analytic Complexity at Evaluation Moderate Summary OT Impairments Balance,Coordination, Functional Mobility,Grooming, Dressing,Toileting,Bathing, Toilet Transfers,Shower Transfers,Activity Tolerance Progress Towards Goals Slow Progress due to Medical Issues,Slow Progress due to Activity Tolerance,Slow Progress due to Cognition Assessment Summary Pt MOD complexity and main barriers are steps, unsteady on her feet and now needing use of FWW, pt needing cues for completeness for ADL and mobility needs however maybe her baseline due to her Lewy Body Dementia. Pt would benefit from 15/03 assist with home health if pt's daughter is capable to provide enough assist for the pt otherwise short skilled rehab. Goals Grooming Goal Standby Assistance Dressing Goal Standby Assistance Toileting Goal Standby Assistance Bathing Goal Standby Assistance Toilet Transfer Goal Standby Assistance Shower Transfer Goal Standby Assistance Days to Meet Goals 15 Frequency of Treatment Frequency Of Treatment Once a Day Treatment Plan OT Treatment Plan ADL Training,Functional Mobility,Patient/Family Education,Discharge Planning Other Treatment Recommendations and Next shower Treatment Focus Discharge Recommendations OT Discharge Recommendations Home with / Assist Available,Home Health,SNF Rehab,Home vs SNF Transportation Needs at Discharge Private Vehicle,Wheelchair/ Cabulance
--- NOTE | 2022-10-28 13:22 | CM.DPC ---
Addendum entered by ROCIO Fonseca 10/28/22 14:27: ADD: Per José Miguel at [facility], likely could accept pt but will have their DNS review to confirm regarding potential for isolation or could admit to their facility without isolation needs. BF Original Note: DCP SNF vs HH Per MD, pt had additional CT scan and shows she is stable to work with PT/OT today. Per PT, pt below baseline and recommend SNF vs home with D[facility] if she can be there 15/03. [facility] has been interested in SNF stay for pt. Pt is almost 10 days out from COVID+ in the ED and will be able to be off precautions likely 1-2 days. SW made SNF referrals to [facility], [facility], [facility], [facility], and [facility] to review. Pt has dementia at baseline but other than late last night has not had any behaviors. PASRR completed. Pt may end up needing to go home with Dtr and HH if no SNFs secured and she progresses with PT/OT. Plan: SW to follow closely tomorrow with SNFs above to determine if any can accept at d/c vs home with Dtr and HH. ROCIO Fonseca
[2022-10-28] MEDS: ONDANSETRON 4 MG ODT SL (18:36)
[2022-10-28] MEDS: ATORVASTATIN 20 MG TABLET 10 MG PO (20:35)
[2022-10-29] VITALS (11 sets, daily range): BP systolic 133–180; BP diastolic 59–77; PULSE 56–84; RESP 16–17; TEMP 36.1–36.6; O2SAT 92–98
[2022-10-29] MEDS: METOPROLOL ER 25 MG TABLET PO ×2 (03:47→08:27)
[2022-10-29] MEDS: ACETAMINOPHEN 325 MG TABLET 650 MG PO ×2 (08:26→14:48)
[2022-10-29] MEDS: ONDANSETRON 4 MG ODT SL (08:27)
[2022-10-29] MEDS: buPROPion XL 150 MG TAB 300 MG PO (08:28)
[2022-10-29] MEDS: SERTRALINE 50 MG TABLET 200 MG PO (08:29)
[2022-10-29] MEDS: CARBIDOPA-LEVODOPA 25/100 TABLET 0.5 EACH PO ×3 (08:33→16:37)
--- NOTE | 2022-10-29 15:07 | PM.PN.1 ---
Subjective Subjective Interval history: Helen Clayton is a 72 y.o. female with new diagnosis of Lewy Body dementia, Parkinsonianism, apparently was in her bedroom, pivoted as she was either getting out of or into bed, tripped over her feet and fell face first. Sustained both subarachnoid and subdural hematoma. Patient without complaints today, planning for SNF placement, limited by COVID restrictions and will be able to be discontinued off precautions tomorrow here. Exam Vital Signs (past 8 hours): - 10/29/22 08:27 10/29/22 08:00 10/29/22 14:03 Temperature 97.4 F L Pulse Rate 63 56 L 65 Respiratory Rate 17 Blood Pressure 180/69 H 180/69 H 133/59 L Pulse Oximetry 97 Oxygen Flow Rate 0 10/29/22 14:03 Temperature 97.3 F L Pulse Rate 65 Respiratory Rate 17 Blood Pressure 133/59 L Pulse Oximetry 98 Oxygen Flow Rate Oxygen Delivery Method Room Air Oxygen Flow Rate 0 Narrative Exam Narrative: Gen: alert elderly female, pleasant, no acute distress. HEENT: normocephalic, swelling and eccymosis of the left orbit, conjunctiva clear, sclera non-icteric, oral mucosa pink and moist Neck: supple, full ROM, no JVD, trachea is midline Resp: Lungs CTA, non-labored breathing CV: RRR, no murmur or rubs Abd: soft, non-tender, normoactive BTs Skin: no lesions or rashes, dry and intact Neuro: alert, oriented to name, mild confusion, no slurred speech, gross strength 5/5 in extremities, no deficits in sensation to light touch, face is symmetric. Extremities: no edema or joint effusions. Objective Labs 10/25/22 19:21 10/25/22 19:21 [facility] Medical History COVID-19 Essential hypertension Lewy body dementia Parkinsonian features Social History household members: children Smoking Status: Former smoker alcohol intake: never Assessment & Plan Assessment & Plan narrative: Traumatic subarachnoid hemmorhage and occipital extra-axial hemmorhage, acute and present on admission - After lengthy discussion by nurse practitioner on admission with patient's daetienne and MCKENZIE, patient will not be transferred for more definitive care if her condition worsens. -repeat head CT showed slight expansion in sub-arachnoid hemorrhage, mild worsening of confusion clinically, 3rd head CT showed stability. Okay to work with PT and OT. -family is interested in SNF possibly. Working on finding a bed, complicated by COVID precuations which will be able to be stopped tomorrow. Other possibility is home with home health depending on progress with PT. Parkinsonian syndrome, chronic - Continue home dose of carbadopa levadopa Lewy body dementia, chronic - She underwent neuropsychiatric evaluation at the [facility] in January 2022 which recommended medical management with an acctylcholinesterase inhibitor such as donepezil, revastigmine, or galantamine, however it does not appear she was initiated on any of these. - She was not recommended to be prescribed any antipsychotics, unless she develops behaviors harmful to herself or others. High blood pressure without the diagnosis of hypertension, acute -Added metoprolol 25 mg b.i.d. BP improved today. Sinus bradycardia in the 50s, decreased to daily and changed to extended release succinate with improvement today in the mid 60s. COVID-19 -1st positive test approximately 10 days prior at home, remains on isolation, can possibly be discontinued working with infection control department here to see about if this can be discontinued now or after typical 10 days (from 10/20 or first positive test). VTE Prophylaxis: Wells risk score 0? X Bilateral SCDs Pharmacological VTE prophylaxis contraindicated in the setting of and active brain bleed/hemorrhage. Dispo: probable d/c to SNF/rehab depending on PT/OT evaluations Code status: DNR/DNI as discussed with Kristin who is her surrogate and POA. Time Spent With Patient Critical Care time: I spent a total of [] minutes of critical care time on this patient's care today; this time is exclusive of procedural time.
--- NOTE | 2022-10-29 15:19 | CM.DPC ---
DCP Cont: Per MD, pt may be medically stable to d/c today pending further PT/OT and recommendations. Per PT/OT yesterday, recommendation is home with HH if Dtr feels she can stay 24/7 with pt at d/c otherwise SNF. HAILE called [facility] and confirmed they likely do not have an appropriate bed near nursing station and staff to accommodate pt. HAILE called José Miguel at [facility] and she confirms that their DNS states that based on COVID precaution status the earliest they can accept is 10/31/22 when pt has had a full 10 days out from COVID+ and then accept on the day without precautions needed. José Miguel states she will just need some updated PT/OT and MD prog note to review to fully confirm they can accept. PT/OT still pending as of 1529. HAILE left Dtr Kristin a detailed msg regarding pt likely doing better in her own home environment and so far only [facility] willing to consider for rehab and if Dtr agreeable with pt discharging home with HH. HAILE updated RN as well as Dtr had stated she would come visit pt this afternoon and has not returned yet or called back yet. Plan: HAILE to follow closely for likely discharge by tomorrow 10/30/22 Home with Dtr and HH vs SNF pending discussion with Dtr today and further PT/OT. ROCIO Fonseca
[2022-10-29] MEDS: LORazepam 2 MG/ML INJ 0.5 MG IV ×2 (16:03→21:10)
--- NOTE | 2022-10-29 17:00 | OT.IPNOTE ---
Attempted to see pt for OT and nursing states just gave pt Ativan. Pt's niece in the room and able to discuss options of SNF versus home with 24/7 assist and home health. In addition encouraged her to have the family talk together about the plans for the pt currently and also for the future. Asked pt's niece if she will be assisting with pt's care at time so to initiate caregiver training. Pt's niece states would rather just have the pt sleep for now. NO charge.
--- NOTE | 2022-10-29 17:36 | PT-IP ANOTE ---
Pt sleeping at this time. Family requesting we let her sleep. Will follow for physical therapy tomorrow.
--- NOTE | 2022-10-29 18:15 | PC.NURSE ---
pt has been markedly confused today, she continues to attempt to get out of bed without assistance; bed alarm is on; daughter was at bedside, but missed care management and PT/OT; niece was present and available to talk with OT; daughter called and status report was given; she will be here tomorrow, with her brother, to talk about discharge plans; this afternoon, she was getting angry and insisting on leaving; she was given Ativan for increased agitation to good effect; pt was calm for visit with niece and is now sleeping
[2022-10-29] MEDS: ATORVASTATIN 20 MG TABLET 10 MG PO (20:42)
[2022-10-30] VITALS (9 sets, daily range): BP systolic 158–175; BP diastolic 56–73; PULSE 57–93; RESP 15–17; TEMP 36.2–36.6; O2SAT 96–98
[2022-10-30] MEDS: TRAMADOL 50 MG TABLET PO ×2 (05:12→18:49)
[2022-10-30] MEDS: ACETAMINOPHEN 325 MG TABLET 650 MG PO (05:12)
[2022-10-30] MEDS: CARBIDOPA-LEVODOPA 25/100 TABLET 0.5 EACH PO ×3 (08:57→16:59)
[2022-10-30] MEDS: buPROPion XL 150 MG TAB 300 MG PO (08:58)
[2022-10-30] MEDS: SERTRALINE 50 MG TABLET 200 MG PO (08:58)
[2022-10-30] MEDS: METOPROLOL ER 25 MG TABLET PO (09:08)
--- NOTE | 2022-10-30 11:45 | PT.IPTN ---
Current Diagnoses Nontraumatic subarachnoid hemorrhage, unspecified (10/25/22) Nontraumatic subdural hemorrhage, unspecified (10/25/22) Physical Therapy Treatment Note M2 PT-IP Current Condition Start: 10/28/22 12:23 Freq: NEEDED Status: Active Protocol: Document 10/28/22 11:30 DLM (Rec: 10/28/22 12:51 DLM [id number]) Physical Therapy Current Condition Current Condition Evaluation Date 10/28/22 Treatment Diagnosis Subdural hemorrahage and subarachnoid, impaired balance and dizziness Onset Date 10/25/22 M3 PT-IP Subjective Start: 10/28/22 12:23 Freq: NEEDED Status: Active Protocol: Document 10/30/22 11:37 AMB (Rec: 10/30/22 11:45 AMB [id number]) Subjective Physical Therapy Visit Type Type Treatment Note Visit Start Time 08:15 Visit Stop Time 08:50 Notes spoke with nursing who said they were putting an order in to take her off airborne precautions, as she tested positive over a week ago. Physical Therapy Visit Comments Patient Comments Pt would like to use the bathroom M4 PT-IP Mobility and Gait Start: 10/28/22 12:23 Freq: NEEDED Status: Active Protocol: Document 10/30/22 11:37 AMB (Rec: 10/30/22 11:45 AMB [id number]) PT-Bed Mobility Assessment Supine to Sit Supine to Sit Contact Guard Assistance, Minimal Assistance Sit to Supine Sit to Supine Minimal Assistance Scooting Scooting to Edge of Bed Contact Guard Assistance PT-Transfer Assessment Sit to and From Stand Sit to and from Stand Contact Guard Assistance, Minimal Assistance,Use of Upper Extremities Equipment Transfer Assistive Device Gait Belt,Front Wheeled Walker Transfers Transfer Destination Bed,Toilet Transfer Technique Stand Step Pivot Transfer Ability Level of Assist Minimal Assistance,Use of Upper Extremities Comments Mobility Comments Pt does not specifically state she is dizzy, but does feel a bit nauseous Gait Assessment Gait Gait Assistance Required: Minimum Assistance Distance (Feet) 20 Assistive Devices Assistive Device Gait Belt,Front Wheeled Walker Gait Deviations General Gait Pattern Decreased Stride Length, Decreased Feet Clearance Factors Limiting Gait Function Factors Limiting Gait Function Decreased Activity Tolerance, Poor Balance,Poor Safety Awareness Comments Gait Comments Pt needed Luda to prevent LOB 3x. Needed assist to manage FWW around bathroom/sink. Pt with shuffling gait pattern, moderate freezing getting into bathroom and with turning. M5 PT-IP Objective Assessments Start: 10/28/22 12:23 Freq: NEEDED Status: Active Protocol: Document 10/28/22 11:30 DLM (Rec: 10/28/22 12:51 DLM [id number]) Orientation Orientation/Cognition Level of Alertness Alert Orientation Name Safety Awareness Decreased Safety Awareness Memory Description Short Term Impaired,Supervisor [place] Impaired Comments slow mental processing noted, she can verbalize needs but she is soft spoken and does not talk very much, she appears to know she is not home but does not know where she is Gross Range of Motion Upper Extremity ROM Assessment Within Functional Limits Lower Extremity ROM Assessment Within Functional Limits Strength Upper Extremity Strength Assessment Within Functional Limits Lower Extremity Strength Assessment Within Functional Limits Coordination Assessment Assessment Coordination Comments bradykinetic in general Sensation Assessment Sensation Gross Sensation WNL Muscle Tone Muscle Tone WNL Yes M6 PT-IP Treatment Start: 10/28/22 12:23 Freq: NEEDED Status: Active Protocol: Document 10/28/22 11:30 DLM (Rec: 10/28/22 12:51 DL [id number]) Physical Therapy Treatment Other Treatments Other Treatment Performed coordinated treatment with OT to do ADL's while up, pt returned to bed after activity M7 PT-IP Assessment and Plan Start: 10/28/22 12:23 Freq: NEEDED Status: Active Protocol: Document 10/30/22 11:37 AMB (Rec: 10/30/22 11:45 AMB [id number]) PT Summary Assessment and Plan Summary Impairments Balance,Bed Mobility,Transfers ,Gait,Activity Tolerance Assessment Summary Helen is alert and resting in bed. She shows good participation in therapy. She is able to ambulate in the room use of the FWW. She has a left sided lean during gait as well as post losses of balance which require Luda to recover from, in addition to needing assist with FWW when managing around furniture/ turning, verbal cues for safe bathroom transfer. Her balance reactions are slow and delayed. She appears to have a combination of symptoms from her head injury on top of Parkinsons. She could discharge home with her Daughter if her Daughter can provide 24/7 assistance. If her Daughter can not care for her she will need SNF rehab. Goals Bed Mobility Goal Independent Transfer Goal Standby Assistance,Front Wheeled Walker Gait Goal Standby Assistance,Front Wheel Walker Gait Distance 80 feet Other Goals 3 steps with min assist Days to Meet Goals 7 Frequency of Treatment Frequency Of Treatment Once a Day Treatment Plan Physical Therapy Treatment Plan Bed Mobility Training,Transfer Training,Gait Training, Therapeutic Exercise,Balance Retraining,Discharge Planning, Neuromuscular Re-ed Recommendations To Nursing Amount of Assist Needed 1 Person Assist Discharge Recommendations PT Discharge Recommendations Home with 15/03 Assist Available,Home Health Other Discharge Recommendations If Daughter is able to care for her otherwise she will need SNF rehab Equipment Needed for Home Before clarify she has a FWW at home Discharge Transportation Needs at Discharge Private Vehicle
--- NOTE | 2022-10-30 13:13 | CM.DPNOTE ---
Addendum entered by ROCIO Ken 10/30/22 15:20: ADD: Just learned that discharge has been cancelled r/t patient's lethargy. Likely discharge tomorrow, home w/family and services EMILY Original Note: DCP Note Patient's daughter Kristin has planned to take patient home w/assist from her brother, who will be in town until Wednesday; therapies have cleared patient for this plan w/recommendation for 15/03 assist and HH services Celena Acostafer asks that [facility] be contacted as patient had them approx a month ago BRYCE Noguera kindly agreed to discuss this referral w/Gonzalo at [facility]. F2F and HH order completed, signed and sent to [facility]. RN expected to be available Wednesday11.03.22 Daughter Kristin is in close contact w/[facility] discussing terminal operator care options for patient; Provided family w/ copy of the Senior Resource Guide, celena Foster appreciative, says she is trying to anticipate patient's next needs and hopeful to keep her home for as long as possible Plan: DC home today via family auto w/family to assist, [facility] services EMILY
--- NOTE | 2022-10-30 14:17 | PM.PN.1 ---
Subjective Subjective Interval history: 72-year-old female with recent diagnosis of Lewy body dementia, parkinsonism, and COVID-19 infection on 10/20/2022 who was admitted with traumatic subarachnoid hemorrhage and occipital extra-axial hemorrhage. Patient has been having difficulty with getting her days and nights switched. She is been more anxious and agitated at night. Therefore she is been receiving IV lorazepam. She is also been receiving tramadol for pain. She is complaining of pain in the back of her neck as well as pressure in her head. This is unchanged from admission. Her daughter notes that yesterday she was much more awake and alert than she is today. She did receive lorazepam IV last night and tramadol this morning. She was scheduled to go home today but they expressed concern about her degree of sedation. Exam Vital Signs (past 8 hours): - 10/30/22 09:08 10/30/22 09:00 10/30/22 12:00 Temperature 97.3 F L 97.1 F L Pulse Rate 60 60 57 L Respiratory Rate 17 17 Blood Pressure 167/56 H 164/56 H 158/63 H Pulse Oximetry 98 96 Oxygen Flow Rate 0 0 Oxygen Delivery Method Room Air Oxygen Flow Rate 0 Narrative Exam Narrative: GEN: Drowsy middle-aged female, awakens easily, oriented times 1-2, NAD HEENT:NC, Face symmetric, bruising noted to the left side of her face CHEST: Respiratory excursions symmetric, CTAB CV: RRR, no M/R/G ABD: Soft, NT/ND, BT present in all 4 quadrants, no organomegaly or masses EXTR: warm, well perfused, no C/C/E SKIN: warm and dry, no rash NEURO: Drowsy but oriented x 1-2, nonfocal Objective Labs 10/25/22 19:21 10/25/22 19:21 PFSH Medical History COVID-19 Essential hypertension Lewy body dementia Parkinsonian features Social History household members: children Smoking Status: Former smoker alcohol intake: never Assessment & Plan Assessment & Plan narrative: 1. Traumatic subarachnoid hemorrhage and occipital extra-axial hemorrhage Overall, patient is doing reasonably well. PT and OT cleared her to return home with home health. However, given her degree of sedation today her discharge has been delayed. No new neuro changes. No new symptoms. Will continue tramadol for pain. 2. Lewy body dementia Patient has been having increased sundowning at night since she is been in the hospital. She also has had switching of days and nights. She will be taken off of IV lorazepam. Will add as needed melatonin for sleep. 3. Parkinsonism Carbidopa/levodopa 4. Hypertension Blood pressures have been hypertensive today. This may be in part secondary to her discomfort. If they continue to be significantly elevated, will increase metoprolol tomorrow. 5. COVID-19 Isolation precautions removed today as patient is 10 days since diagnosis. Code status DNR DNI Prophylaxis Chemical prophylaxis contraindicated in the setting of intracranial bleeding Disposition Plan to discharge home tomorrow with home health if her level of alertness has improved. Time Spent With Patient Critical Care time: I spent a total of [] minutes of critical care time on this patient's care today; this time is exclusive of procedural time.
[2022-10-30] MEDS: ONDANSETRON 4 MG/2 ML INJ IV (16:58)
[2022-10-30] MEDS: ATORVASTATIN 20 MG TABLET 10 MG PO (22:17)
[2022-10-30] MEDS: MELATONIN 3 MG TABLET PO (22:17)
[2022-10-30] MEDS: ONDANSETRON 4 MG ODT SL (22:17)
[2022-10-31 01:49] VITALS: BP 155/74; PULSE 74; RESP 18; TEMP 37.1; O2SAT 97
[2022-10-31] MEDS: TRAMADOL 50 MG TABLET PO (02:41)
[2022-10-31 04:44] VITALS: BP 159/61; PULSE 64; RESP 17; TEMP 36.2; O2SAT 97
[2022-10-31 07:00] VITALS: O2SAT 94
[2022-10-31 08:00] VITALS: BP 148/75; PULSE 71; RESP 16; TEMP 36.2; O2SAT 96
[2022-10-31 08:31] LABS: Add Manual Diff / Slide Review NO; Basophils Absolute Auto 100 /uL (0-100); Basophils Percent Auto 1.9 % (0-2); Eosinophils Absolute Auto 200 /uL (0-450); Eosinophils Percent Auto 3.5 % (2-4); Hemoglobin 11.9 g/dL (12.0-16.0); Lymphocytes Absolute Auto 500 /uL (1100-4500); Lymphocytes Percent Auto 7.2 % (25-40); Mean Corpuscular HGB Conc 34.1 % (30-36); Mean Corpuscular Hemoglobin 28.7 PG (26-34); Mean Corpuscular Volume 84.2 fL (80-100); Monocytes Absolute Auto 500 /uL (0-900); Monocytes Percent Auto 6.7 % (3-14); Neutrophils Absolute Auto 5500 /uL (1500-7000); Neutrophils Percent Auto 80.7 % (50-75); Platelet Count 244 X10^3/uL (150-400); Red Blood Cell Count 4.16 X10^6/uL (4.0-5.2); Red Cell Distribution Width 13.7 % (11.6-14.8); White Blood Cell Count 6.8 X10^3/uL (4.5-11.0)
[2022-10-31 08:49] LABS: BUN Creatinine Ratio 14.6 (6-22); Blood Urea Nitrogen 12 mg/dL (7-17); Carbon Dioxide 30 mmol/L (22-32); Chloride 103 mmol/L (98-107); Estimated Glomerular Filt Rate > 60 mL/min (>60); Glucose 105 mg/dL (80-110); HEMOLYSIS < 15 (0-50); Potassium 3.9 mmol/L (3.4-5.1); Sodium 138 mmol/L (137-145)
[2022-10-31] MEDS: buPROPion XL 150 MG TAB 300 MG PO (09:28)
[2022-10-31] MEDS: SERTRALINE 50 MG TABLET 200 MG PO (09:28)
[2022-10-31] MEDS: ACETAMINOPHEN 325 MG TABLET 650 MG PO (09:28)
[2022-10-31] MEDS: CARBIDOPA-LEVODOPA 25/100 TABLET 0.5 EACH PO (09:29)
[2022-10-31] MEDS: METOPROLOL ER 25 MG TABLET PO (09:30)
[2022-10-31 09:50] VITALS: BP 159/61
--- NOTE | 2022-10-31 11:15 | OT.IP.TRT ---
Current Diagnoses Nontraumatic subarachnoid hemorrhage, unspecified (10/25/22) Nontraumatic subdural hemorrhage, unspecified (10/25/22) Occupational Therapy Treatment Note M2 OT-IP Current Condition Start: 10/28/22 13:09 Freq: Status: Active Protocol: Document 10/28/22 11:15 [facility] (Rec: 10/28/22 13:46 [facility] [id number]) Occupational Therapy Current Condition Current Condition Evaluation Date 10/28/22 Treatment Diagnosis Subdural hemmorhage Diagnosis Onset Date 10/25/22 M3 OT- IP Subjective and Pain Start: 10/28/22 13:09 Freq: Status: Active Protocol: Document 10/31/22 11:15 [facility] (Rec: 10/31/22 11:50 [facility] [id number]) OT- Subjective Occupational Therapy Visit Type Type Treatment Note Visit Start Time 11:15 Visit Stop Time 11:24 Total Visit Minutes 9 Occupational Therapy Visit Comments Patient Comments Pt resting and able to talk to pt and family regarding OT needs at home. Patient/Caregiver Goals To go home. OT- Balance Assessment Sitting Balance and Reactions Static Sitting Balance Ability Good Dynamic Sitting Balance Ability Fair Standing Balance and Reactions Static Standing Balance Ability Fair Dynamic Standing Balance Ability Poor M8 OT- IP Objective Assessments Start: 10/28/22 13:09 Freq: Status: Active Protocol: Document 10/28/22 11:15 [facility] (Rec: 10/28/22 13:46 [facility] [id number]) OT Gross Range of Motion Upper Extremity Range of Motion Assessment Within Functional Limits OT Strength Upper Extremity Strength Assessment Within Functional Limits OT- Coordination Assessment Upper Extremity Finger to Nose Test Left UE Impaired Comments Coordination Comments slightly off for left hand on first attempt M9 OT- IP Assessment and Plan Start: 10/28/22 13:09 Freq: Status: Active Protocol: Document 10/31/22 11:15 [facility] (Rec: 10/31/22 11:50 [facility] [id number]) OT Summary Assessment and Plan Potential Rehabilitation Potential Good Analytic Complexity at Evaluation Moderate Summary OT Impairments Balance,Coordination, Functional Mobility,Grooming, Dressing,Toileting,Bathing, Toilet Transfers,Shower Transfers,Activity Tolerance Assessment Summary Spoke at length with pt's family regarding equipment needs of bed alarm, having a low bed or pads/mattress on the floor, pt's family already having baby monitors and just got a transport wc and [facility]SC for the pt. Pt's family aware to provide 24/7 assist and REHABILITATION DIRECTOR for mobility as the FWW at times can be a trip hazard for the pt. Pt to go home with 24/7 assist and home health. Discharge Recommendations OT Discharge Recommendations Home with 24/7 Assist Available,Home Health Transportation Needs at Discharge Private Vehicle
--- NOTE | 2022-10-31 14:43 | CM.DPNOTE ---
Discharge Planning Note: Patient discharged home. [facility] referral already initiated, they can start Wednesday. Plan: Please fax DC Summary when available. (Not available at end of my day today). Franca Garcia RN/DCP
--- NOTE | 2022-10-31 18:47 | P.DS_ITS ---
History of Present Illness History of Present Illness Chief complaint: Fall at home Narrative: Per history and physical: Helen Clayton is a 72 y.o. female with new diagnosis of Lewy Body dementia, Parkinsonianism, apparently was in her bedroom, pivoted as she was either getting out of or into bed, tripped over her feet and fell face first. Daughter in the next bedroom was present and due to the patient being unresponsive with slow breaths contacted EMS. When EMS arrived, she started to vomit and they were able to lay her on her side. Per the daughter, the patient is normally talkative and can carry on a conversation, not verbal at the time of presentation to the ED. She was experiencing cold symptoms about a week and a half ago, daughter tested herself and the patient for COVID, both were positive as of several days prior to October 20. Daughter states patient had not been eating or drinking much due initially to copious amount of thick mucus and as of 2-3 days ago, food tasted poorly and she stopped eating all together. When I went into the room and asked the patient if she had any pain, she replied something about ice. When I asked her where she was, she replied [place] and then refrigerator. Head CT identifed a Hyperdense extra-axial hemorrhage is seen along the left parieto-occipital convexity measuring up to 12 mm and maximum thickness (image 19 of series 2).? There is no significant mass effect or midline shift.? Scattered foci of hyperdense hemorrhage are seen in the subarachnoid space within the bilateral frontal convexity, of the left sylvian fissure, and within the interventricular septum.? No intraparenchymal hemorrhage is seen.? Hypodensities in the subcortical and periventricular white matter compatible with chronic microvascular ischemic changes.? There is moderate cerebral and cerebellar parenchymal volume loss. She has a small left supraorbital scalp hematoma w/soft tissue edema, no skull fracture identified.? She is afebrile blood pressure 171/84 heart rate 76 respiratory rate 15 oxygen saturation 98% on room air she weighs 57.5 kg with a BMI of 26.6.? CBC and chemistries are unremarkable she has a mildly elevated glucose at 1:29 a.m. and COVID-19 PCR is positive. Discharge Providers Provider Date of admission: 10/25/22 21:05 Discharge Date: 10/31/22 Primary care physician: Katia Thomas PA-C Consults: 10/28/22 07:40 Consult to Occupational Therapy Evaluate & Treat Comment: Physician Instructions: Evaluate and treat Consult to Physical Therapy Evaluate & Treat Comment: Physician Instructions: Evaluate and Treat 10/30/22 13:34 Consult to Home Health Routine Comment: Reason For Exam: Home Health services upon discharge Discharge provider: Akiko Guillermo MD Summary Hospital Course Discharge Diagnosis: Traumatic subarachnoid hemorrhage and occipital extra-axial hemorrhage, improving Lewy body dementia, recent diagnosis, stable Parkinsonism, chronic, stable Hypertension, chronic, stable COVID-19 infection, diagnosis 10/20/2022 Hospital Course: Patient was admitted after several falls which were felt to be secondary to acute COVID-19 infection. She presented to the emergency department for evaluation. Patient was found to have subarachnoid hemorrhage and occipital extra-axial hemorrhage. Decision was made not to transfer to a higher level of care based on daughter's report that patient is DNR DNI and if she were to worsen they would pursue comfort measures. Patient had a fairly recent diagnosis of Lewy body dementia. She also has known parkinsonism for which she is on carbidopa/levodopa. Patient did complain of head pressure and pain related to her intracranial bleeding, but otherwise remained fairly asymptomatic. She did have some sundowning and was receiving IV lorazepam for agitation at night. She was also given tramadol for head pain. Plans were in place for her to discharge either to penitentiary facility or home with home health. Patient's daughter ultimately felt she would do best back at home in a familiar environment. Plan was for her to be discharge on October 30, 2022. However, patient was quite drowsy. It was felt likely to be secondary to the combination of repeated doses of IV lorazepam as well as tramadol. Lorazepam w as discontinued that evening and on the date of discharge, patient was much more awake and alert. Tramadol is being held due to ongoing risk of sedation. Family was very comfortable with using acetaminophen on a scheduled basis for ongoing pain control. She was prescribed metoprolol while in the hospital secondary to elevated blood pressures. This is being prescribed at discharge. Patient is being discharged in stable condition. She will follow up with her primary care provider. Exam Vital Signs (past 8 hours): Oxygen Delivery Method Room Air Oxygen Flow Rate 0 Narrative Exam Narrative: GEN:? Drowsy middle-aged female, awakens easily, oriented times 1-2, NAD HEENT:NC, Face symmetric, bruising noted to the left side of her face CHEST: Respiratory excursions symmetric, CTAB CV: RRR, no M/R/G ABD: Soft, NT/ND, BT present in all 4 quadrants, no organomegaly or masses EXTR: warm, well perfused, no C/C/E SKIN: warm and dry, no rash NEURO:? Drowsy but oriented x 1-2, nonfocal Objective Labs 10/31/22 08:10 10/31/22 08:10 Labs: Laboratory Results - last 24 hr 10/31/22 10/31/22 08:10 08:10 WBC 6.8 RBC 4.16 Hgb 11.9 L Hct 35.0 L MCV 84.2 MCH 28.7 MCHC 34.1 RDW 13.7 Plt Count 244 Neut % (Auto) 80.7 H Lymph % (Auto) 7.2 L [place] % (Auto) 6.7 Eos % (Auto) 3.5 Baso % (Auto) 1.9 Neut # (Auto) 5500 Lymph # (Auto) 500 L [place] # (Auto) 500 Eos # (Auto) 200 Baso # (Auto) 100 Sodium 138 Potassium 3.9 Chloride 103 Carbon Dioxide 30 BUN 12 Creatinine 0.82 Estimated GFR > 60 BUN/Creatinine Ratio 14.6 Glucose 105 Calcium 9.0 PFSH Medical History COVID-19 Essential hypertension Lewy body dementia Parkinsonian features Social History household members: children Smoking Status: Former smoker alcohol intake: never Discharge Plan Discharge Plan Patient Disposition: Home Health Service Provider Discharge Comment: Return to the ER for inability to hold down food/ fluids, fevers, altered mental status or repeat falls. Follow-up with your PCP in 1-2 weeks. Nursing Discharge Comment: call 911/return to ER if any significant mentation c hanges, including: blurred vision, changes in speech, balance. please try to drink more fluids thru the day, your urine was very concentrated and strong odor today. to prevent UTI, please drink at least 8 oz of water w/ every meal, and monitor for urinary symptoms: urgency, frequency, cloudy urine, increased confusion or low grade fever. take the medications as instructed, questions about meds? contact your PCP or speak to the pharmacist. please follow up w/ your primary MD w/in 7-10 days of discharging. it was a pleasure to be your nurse today, please take good care of yourself and enjoy the wonderful day ! Discharge orders & Medications Prescriptions: New acetaminophen 325 mg Tablet 650 mg PO Q6H PRN (Reason: Fever/Mild Pain (1-3)) Qty: 30 0RF metoprolol succinate 25 mg Tablet Extended Release 24 Hr 25 mg PO DAILY Qty: 30 0RF ondansetron 4 mg Tablet,Disintegrating 4 mg sublingual Q6HR PRN (Reason: Nausea) Qty: 20 0RF Continued sertraline 100 MG tablet 200 mg PO QDAY Qty: 0 atorvastatin 10 mg Tablet 10 mg PO BEDTIME bupropion HCl 300 mg Tablet Extended Release 24 Hr 300 mg PO QAM carbidopa-levodopa 25-100 mg Tablet 0.5 tab PO TID Discontinued diazepam 10 MG tablet 5 mg PO QPM Qty: 0 hydrocodone-acetaminophen 5-325 mg tablet 1 tab PO Q6H PRN (Reason: pain) Qty: 10 0RF alprazolam 0.5 mg Tablet 0.5 mg PO BEDTIME PRN (Reason: Sleep) Follow up/Referrals: Katia Thomas PA-C [Primary Care Provider] - Diet/Activity/Treatments Diet: Diet as Tolerated and Regular Activity: As tolerated w/assist Oxygen: N/A Visit Report/Discharge Packet Instructions: Subarachnoid Hemorrhage, DI for Stroke-Subarachnoid Hemorrhage, How to Prevent Falls, Ondansetron, Metoprolol Stand Alone Forms: Patient Portal/API, Stroke Signs & Symptoms Discharge Data Primary Care Provider: Katia Thomas
== END 2022-10-31 12:11 | disposition home health service (06) | DRG 85 ==
LOC: ED 21:02 → AC 21:05
PROVIDERS: Family Medicine; Admitting Provider Nurse Practitioner Family; Emergency Provider Emergency Medicine; Family Provider Physician Assistant; PCP Physician Assistant; Referring Provider Emergency Medicine; Visit Provider Nurse Practitioner Family
DX: S06.6X0A Traumatic subarachnoid hemorrhage without loss of consciousness, initial encounter (principal); U07.1 COVID-19; G31.83 Neurocognitive disorder with Lewy bodies; G20 Parkinson's disease; F02.80 Dementia in other diseases classified elsewhere, unspecified severity, without behavioral disturbance, psychotic disturbance, mood disturbance, and anxiety; S06.5X0A Traumatic subdural hemorrhage without loss of consciousness, initial encounter; I10 Essential (primary) hypertension; S00.212A Abrasion of left eyelid and periocular area, initial encounter; W01.0XXA Fall on same level from slipping, tripping and stumbling without subsequent striking against object, initial encounter; Z87.891 Personal history of nicotine dependence
CPT/HCPCS: 36415; 70450; 70486; 72125; 80048; 85025; 87635; 97116; 97162; 97166; 97530; 99284; C9803; J2060; J2405; J2765; J7050

== ENCOUNTER → 2022-11-04 12:54 | Outpatient (CLI) | payer MEDICARE, SELFPAY ==
[2022-10-25 22:15] VITALS: BMI 26.6
== END ==
PROVIDERS: Visit Provider Nurse Practitioner Family
DX: R30.0 Dysuria (principal)
CPT/HCPCS: 87077; 87086; 87186

== ENCOUNTER 2022-11-19 16:08 | Emergency (ER) | payer MEDICARE, SELFPAY ==
[2022-10-25 22:15] VITALS: BMI 26.6
[2022-11-19 16:16] VITALS: BP 171/74; PULSE 58; RESP 16; TEMP 36.7; O2SAT 99; BMI 21.7
[2022-11-19 18:05] LABS: Bacteria Urine Many (>30); Culture Indicated Urine Specimen Cultured; RBC Urine None Seen (0-5/HPF); WBC Urine 5-10/HPF (0-5/HPF)
[2022-11-19 18:45] VITALS: PULSE 61; O2SAT 98
[2022-11-19 18:46] VITALS: BP 176/79; PULSE 61; O2SAT 98
[2022-11-19 19:00] VITALS: BP 165/83; PULSE 63; O2SAT 99
--- NOTE | 2022-11-19 19:01 | ED.GENADULT ---
HPI - General Adult General Chief complaint: Urogenital-Female Stated complaint: sent by [facility] for UTI Time Seen by Provider: 11/19/22 18:47 Source: family Mode of arrival: Wheelchair History of Present Illness HPI narrative: Patient is a 72-year-old female who has a history of Parkinson's disease and also some memory issues who several weeks ago was seen and diagnosed with a urinary tract infection. She was given antibiotics. She is completed the course of it. She is here with family. Apparently the symptoms that she was having which included urinary frequency and also some balance issues nausea and anger issues and behavioral changes have resolved but have now returned over the past couple days. Most of the HPI is coming from family. Related Data Home Medications Medication Instructions Recorded Confirmed sertraline 100 mg tablet 200 mg PO QDAY ##0 08/03/16 10/25/22 atorvastatin 10 mg tablet 10 mg PO BEDTIME 10/25/22 10/25/22 bupropion HCl 300 mg 24 hr tablet, 300 mg PO QAM 10/25/22 10/25/22 extended release carbidopa 25 mg-levodopa 100 mg 0.5 tab PO TID 10/25/22 10/25/22 tablet Previous Rx's Medication Instructions Recorded acetaminophen 325 mg tablet 650 mg PO Q6H PRN Fever/Mild Pain 10/30/22 (1-3) #30 tabs metoprolol succinate 25 mg 25 mg PO DAILY #30 tabs 10/30/22 tablet,extended release 24 hr ondansetron 4 mg disintegrating 4 mg sublingual Q6HR PRN Nausea 10/30/22 tablet #20 tabs nitrofurantoin 100 mg PO Q12H 5 days #9 caps 11/19/22 monohydrate/macrocrystals 100 mg capsule (Macrobid) Allergies Allergy/AdvReac Type Severity Reaction Status Date / Time lanolin [LANOLIN] Allergy Mild INFLAMED Verified 11/04/22 13:35 FACE bacitracin Allergy Unknown INFLAMMED Verified 11/04/22 13:35 [From NEOSPORIN SKIN ([id number])] neomycin Allergy Unknown INFLAMMED Verified 11/04/22 13:35 [From NEOSPORIN SKIN ([id number])] polymyxin B Allergy Unknown INFLAMMED Verified 11/04/22 13:35 [From NEOSPORIN SKIN ([id number])] citalopram [CITALOPRAM] AdvReac Unknown RECURRENT Verified 11/04/22 13:35 MIGRAINES Review of Systems Constitutional Constitutional: Reports system reviewed and no additional complaints, except as documented Gastrointestinal Gastrointestinal: Reports system reviewed and no additional complaints, except as documented Genitourinary Genitourinary: Reports system reviewed and no additional complaints, except as documented Neurologic Neurologic: Reports system reviewed and no additional complaints, except as documented Psychiatric Psychiatric: Reports system reviewed and no additional complaints, except as documented Patient History Medical History COVID-19 Essential hypertension Lewy body dementia Parkinsonian features Social History household members: children Smoking Status: Former smoker alcohol intake: never Smoking Status: Former smoker tobacco type: cigarettes alcohol intake frequency: holidays/special occasions only Substance Use Type: does not use Exam Initial Vital Signs Initial Vital Signs: Vital Signs Temperature 98.0 F 11/19/22 16:16 Pulse Rate 58 L 11/19/22 16:16 Respiratory Rate 16 11/19/22 16:16 Blood Pressure 171/74 H 11/19/22 16:16 Pulse Oximetry 99 11/19/22 16:16 Oxygen Delivery Method Room Air 11/19/22 16:16 HENMT Head: normal to inspection and normocephalic Resp Auscultation: clear to auscultation bilaterally Cardio Rate: regular rate Rhythm: regular rhythm GI Inspection: normal to inspection and non-distended Course Orders Ordered: Discontinued Medications Nitrofurantoin Macrocrystals (Nitrofurantoin Er 100 Mg Capsule) 100 mg PO NOW ONE Stop: 11/19/22 19:03 Last Admin: 11/19/22 20:00 Dose: 100 mg Documented By: DANIKA Vital Signs Vital signs: Vital Signs - 8 hr 11/19/22 20:00 Pulse Rate 56 L Respiratory Rate 16 Pulse Oximetry 99 Medical Decision Making Medical Records Medical records reviewed: Yes I reviewed the patient's medical records. Lab Data Lab results reviewed: Yes I reviewed the patient's lab results. Labs: Lab Results 11/19/22 Range/Units 17:47 Urine RBC None seen (0-5/HPF) Urine WBC 5-10/hpf H (0-5/HPF) Urine Bacteria Many (>30) H (None) Ur Culture Indicated? Specimen cultured Urine Dip Bedside Urine Glucose Negative Bedside Urine Bilirubin - Negative Bedside Urine Ketone - Negative Urine Specific [place] 1.015 Bedside Urine Occult Blood - Negative Bedside Urine pH 5.5 Bedside Urine Protein - Negative Bedside Urine Urobilinogen - Negative Bedside Urine Nitrite + Positive Bedside Urine Leukocytes - Negative Esterase Point of care testing: Urine Dip Bedside Urine Glucose Negative Bedside Urine Bilirubin - Negative Bedside Urine Ketone - Negative Urine Specific [place] 1.015 Bedside Urine Occult Blood - Negative Bedside Urine pH 5.5 Bedside Urine Protein - Negative Bedside Urine Urobilinogen - Negative Bedside Urine Nitrite + Positive Bedside Urine Leukocytes - Negative Esterase MDM Narrative Medical decision making narrative: Review the patient's medical record shows that in the past she is had a pansensitive E coli. She was on Keflex prior to this and that did seem to resolve her symptoms. Unsure whether not the symptoms she is having today are a return of her prior symptoms were continuation. She does have a nitrite positive urine. I do suspect that she has a urinary tract infection which very well can explain all the presenting symptoms today. Had a discussion with the family. Since there is some concern that maybe this is a continued infection we will switch to another antibiotic. She was given Macrobid here in the emergency department she tolerated this without any difficulty. No fevers. Low suspicion for pyelonephritis. No indication for admission to the hospital. She was given return precautions. She expressed understanding and agreement. Discharge Plan Departure Patient Disposition: Home Clinical Impression: Urinary tract infection Instructions: DI for Urinary Tract Infection (UTI) Activity Restrictions/Additional Instructions: A prescription for antibiotics was sent to the pharmacy of your choice. Please take them as directed. Urine culture was pending today. We will contact you if we need to change any antibiotics. I recommend that you follow-up with her primary doctor. Return to the emergency department for any new symptoms. Prescriptions: New nitrofurantoin monohyd/m-cryst [Macrobid] 100 mg capsule 100 mg PO Q12H 5 Days Qty: 9 0RF Rx Instructions: must administer with a meal/food No Action sertraline 100 MG tablet 200 mg PO QDAY Qty: 0 atorvastatin 10 mg Tablet 10 mg PO BEDTIME bupropion HCl 300 mg Tablet Extended Release 24 Hr 300 mg PO QAM carbidopa-levodopa 25-100 mg Tablet 0.5 tab PO TID acetaminophen 325 mg Tablet 650 mg PO Q6H PRN (Reason: Fever/Mild Pain (1-3)) Qty: 30 0RF metoprolol succinate 25 mg Tablet Extended Release 24 Hr 25 mg PO DAILY Qty: 30 0RF ondansetron 4 mg Tablet,Disintegrating 4 mg sublingual Q6HR PRN (Reason: Nausea) Qty: 20 0RF Stand Alone Forms: Patient Portal/API
[2022-11-19 19:30] VITALS: BP 166/77; PULSE 60; O2SAT 98
[2022-11-19 20:00] VITALS: PULSE 56; RESP 16; O2SAT 99
[2022-11-19] MEDS: NITROFURANTOIN ER 100 MG CAPSULE PO (20:00)
== END 2022-11-19 20:17 | disposition home or self-care (01) ==
PROVIDERS: Emergency Medicine; Emergency Provider Emergency Medicine
DX: N39.0 Urinary tract infection, site not specified (principal)
CPT/HCPCS: 81003; 81015; 87077; 87086; 87186; 99283

== ENCOUNTER → 2023-02-08 11:50 | Outpatient (CLI) | payer MEDICARE, SELFPAY ==
[2022-10-25 22:15] VITALS: BMI 26.6
--- NOTE | 2023-02-08 | DI.RAD.S_ITS ---
PROCEDURE: XR HIP W PEL IF DONE LT 2V INDICATIONS: LEFT HIP AND LOW BACK PAIN TECHNIQUE: AP pelvis with lateral view(s) of the left hip(s). COMPARISON: None. FINDINGS: Bones: No fractures or dislocations. Pelvic ring appears intact. No suspicious bony lesions. Mild osteoarthritic changes in hips and sacroiliac joints bilaterally. Soft tissues: The visualized bowel gas pattern is normal. No suspicious soft tissue calcifications. IMPRESSION: Mild osteoarthritis. Dictated by: Brittany Maldonado M.D. on 02/08/2023 at 15:13 Approved by: Brittany Maldonado M.D. on 02/08/2023 at 15:13
--- NOTE | 2023-02-08 | DI.RAD.S_ITS ---
PROCEDURE: XR LUMBAR SPINE 2-3V INDICATIONS: LEFT HIP AND LOW BACK PAIN TECHNIQUE: 3 views of the lumbar spine were acquired. COMPARISON: [facility], CT, CT ABDOMEN PELVIS W CON, 10/20/2022, 23:31. FINDINGS: Bones: 5 [id number] vertebrae are present. There is mild levoscoliosis. No vertebral body compression fractures. No suspicious bony lesions. Moderate degenerative disc disease at L3-L4 and L4-L5, and mild at other levels. Moderate facet arthropathy at L3-L4, L4-L5 and L5-S1. Soft tissues: Overlying bowel gas pattern is normal. No suspicious soft tissue calcifications. IMPRESSION: 1. Moderate degenerative disc and facet disease. 2. Scoliosis. 3. Cholelithiasis. Recommend gallbladder ultrasound for further evaluation. Dictated by: Brittany Maldonado M.D. on 02/08/2023 at 15:10 Approved by: Brittany Maldonado M.D. on 02/08/2023 at 15:12
== END ==
PROVIDERS: PCP Physician Assistant; Referring Provider Internal Medicine; Visit Provider Internal Medicine
DX: M51.36 Other intervertebral disc degeneration, lumbar region (principal); M47.816 Spondylosis without myelopathy or radiculopathy, lumbar region; M47.817 Spondylosis without myelopathy or radiculopathy, lumbosacral region; K80.20 Calculus of gallbladder without cholecystitis without obstruction; M41.9 Scoliosis, unspecified; M16.12 Unilateral primary osteoarthritis, left hip; M25.552 Pain in left hip; M54.50 Low back pain, unspecified
CPT/HCPCS: 72100; 73502

== ENCOUNTER → 2023-02-11 09:44 | Outpatient (CLI) | payer MEDICARE, SELFPAY ==
[2022-10-25 22:15] VITALS: BMI 26.6
[2023-02-11 12:19] LABS: BUN Creatinine Ratio 20.4 (6-22); Blood Urea Nitrogen 19 mg/dL (7-17); Calcium 9.1 mg/dL (8.4-10.2); Carbon Dioxide 28 mmol/L (22-32); Chloride 107 mmol/L (98-107); Estimated Glomerular Filt Rate > 60 mL/min (>60); Glucose 67 mg/dL (80-110); HEMOLYSIS < 15 (0-50); Potassium 4.3 mmol/L (3.4-5.1); Sodium 140 mmol/L (137-145)
== END ==
PROVIDERS: PCP Physician Assistant; Referring Provider Urology; Visit Provider Urology
DX: N39.0 Urinary tract infection, site not specified (principal)
CPT/HCPCS: 36415; 80048

== ENCOUNTER → 2023-02-11 14:05 | Outpatient (CLI) | payer MEDICARE, SELFPAY ==
[2022-10-25 22:15] VITALS: BMI 26.6
[2023-02-11 14:55] LABS: Appearance Urine UA CLEAR; Bilirubin Urine UA NEGATIVE (NEGATIVE); Color Urine UA YELLOW; Glucose Urine UA NEGATIVE (Negative); Ketones Urine UA NEGATIVE (NEGATIVE); Leukocyte Esterase Urine UA TRACE (NEGATIVE); Nitrite Urine UA NEGATIVE (Negative); Occult Blood Urine UA NEGATIVE (Negative); Protein Urine UA NEGATIVE (Negative); Specific Gravity Urine UA 1.025 (1.000-1.035); Urobilinogen Urine UA 0.2 E.U./dL (0.2)
[2023-02-11 15:24] LABS: Bacteria Urine Occasional (0-1); Culture Indicated Urine Specimen Cultured; RBC Urine 0-1/HPF (0-5/HPF); Squamous Epithelial Cell Urine 1-5 /HPF (0-5/HPF); WBC Urine 1-5/HPF (0-5/HPF)
== END ==
PROVIDERS: PCP Physician Assistant; Referring Provider Urology; Visit Provider Urology
DX: R25.9 Unspecified abnormal involuntary movements (principal); N39.0 Urinary tract infection, site not specified; Z87.440 Personal history of urinary (tract) infections; Z90.710 Acquired absence of both cervix and uterus
CPT/HCPCS: 36415; 51798; 80048; 81001; 87086; 99214

== ENCOUNTER → 2023-02-18 08:43 | Outpatient (CLI) | payer MEDICARE, SELFPAY ==
[2022-10-25 22:15] VITALS: BMI 26.6
--- NOTE | 2023-02-18 | DI.US.S_ITS ---
PROCEDURE: US ABDOMEN COMPLETE INDICATIONS: CALCULUS OF GALLBLADDER WITHOUT CHOLECYSTITIS TECHNIQUE: Real-time scanning was performed of the abdominal and retroperitoneal organs, with image documentation. COMPARISON: [facility], CT, CT ABDOMEN PELVIS W CON, 10/20/2022, 23:31. FINDINGS: Liver: Liver is normal in size and homogeneous in echotexture. Gallbladder: There are multiple small gallstones. No gallbladder wall thickening, pericholecystic fluid or sonographic Nunez's sign. Biliary ducts: Intrahepatic bile ducts are non-dilated. Extrahepatic bile duct caliber measures 4.0 mm. Normal is 6-7 mm or less in diameter, or 10 mm or less post-cholecystectomy. Pancreas: Visualized portions of the pancreas are sonographically normal. Spleen: Spleen is normal in size and homogeneous in echotexture. Kidneys: Kidneys are normal in size and echotexture. Right kidney measures 8.3 cm long; left kidney measures 9.3 cm long. Question mild hydronephrosis in right kidney. No nephrolithiasis. No solid masses. Aorta: Visualized aorta is normal in caliber at less than 3 cm. Iliacs: Proximal common iliac arteries are normal in caliber at less than 2.5 cm. IVC: Intrahepatic inferior vena cava is patent. Miscellaneous: No free abdominal fluid. IMPRESSION: 1. Cholelithiasis. No ultrasound findings to suggest acute cholecystitis. 2. Question mild hydronephrosis right kidney. 3. Limited examination secondary to body habitus. Dictated by: Brittany Maldonado M.D. on 02/18/2023 at 13:48 Approved by: Brittany Maldonado M.D. on 02/18/2023 at 13:51
== END ==
PROVIDERS: PCP Physician Assistant; Referring Provider Physician Assistant; Visit Provider Physician Assistant
DX: K80.20 Calculus of gallbladder without cholecystitis without obstruction (principal)
CPT/HCPCS: 76700

== ENCOUNTER → 2023-02-22 09:24 | Outpatient (CLI) | payer MEDICARE, SELFPAY ==
[2022-10-25 22:15] VITALS: BMI 26.6
== END ==
PROVIDERS: PCP Physician Assistant; Visit Provider Urology
DX: N39.0 Urinary tract infection, site not specified (principal)
CPT/HCPCS: 87086

== ENCOUNTER → 2023-02-22 13:17 | Outpatient (CLI) | payer MEDICARE, SELFPAY ==
[2022-10-25 22:15] VITALS: BMI 26.6
--- NOTE | 2023-02-22 13:17 | DI.CT.S_ITS ---
PROCEDURE: CT ABDOMEN PELVIS WO/W CON INDICATIONS: Recurrent urinary tract infection TECHNIQUE: Optional 5 mm thick noncontrast images acquired from the diaphragm to the symphysis pubis. After the administration of intravenous contrast, 5 mm thick images acquired from the diaphragm to the symphysis pubis after a 10-minute delay. 2 mm thick coronal and sagittal reformats were then performed of the kidneys and ureters. For radiation dose reduction, the following was used: automated exposure control, adjustment of mA and/or kV according to patient size. COMPARISON: [facility], CT, CT ANGIO CHEST PE PROTOCOL, 10/20/2022, 23:31. [facility], CT, CT ABDOMEN PELVIS W CON, 10/20/2022, 23:31. FINDINGS: Image quality: Excellent. Lung bases: Lingula scars and atelectasis. Heart size is normal. Urinary system: Both kidneys are normal in size, without hydronephrosis or nephrolithiasis on pre-contrast images. No perinephric fat stranding. There is normal bilateral renal enhancement. Suspect bilateral parapelvic renal cysts. Renal calyces appear normal in morphology when filled with contrast. Opacified portions of both ureters demonstrate normal caliber. There may be a mass in the left bladder base (series 4, image 169; series 5 image 68). There is a urachal cyst or bladder diverticulum in the anterior aspect of the urinary bladder.. No calcified bladder stones. Other solid organs: Liver is normal in size and enhancement. Gallbladder contains multiple calcified stones. Biliary system is non dilated. Pancreas enhances normally. Spleen is normal in size and enhancement. Left adrenal thickening. Peritoneum and bowel: Bowel loops demonstrate normal wall thickness and caliber. Diverticulosis without acute diverticulitis. No free fluid or air. Nodes and vessels: No retroperitoneal or mesenteric adenopathy by size criteria. Aorta and inferior vena cava are normal in size. Moderate atherosclerosis. Abdominal wall: No ventral hernias. Pelvis: No pathologic free pelvic fluid. No inguinal hernias or adenopathy. Bones: No suspicious bony lesions. No vertebral body compression fractures. Scoliosis and degenerative changes in lumbar spine. IMPRESSION: 1. Question a bladder mass in the left bladder base. Recommend cystoscopy for further evaluation. 2. There is a complex urachal cyst versus bladder diverticulum in the anterior wall of the urinary bladder. 3. No renal stone or hydronephrosis. 4. Cholelithiasis. 5. Diverticulosis without diverticulitis. Dictated by: Brittany Maldonado M.D. on 02/22/2023 at 17:05 Approved by: Brittany Maldonado M.D. on 02/22/2023 at 18:44
== END ==
PROVIDERS: PCP Physician Assistant; Referring Provider Urology; Visit Provider Urology
DX: N39.0 Urinary tract infection, site not specified (principal); K80.20 Calculus of gallbladder without cholecystitis without obstruction; K57.90 Diverticulosis of intestine, part unspecified, without perforation or abscess without bleeding
CPT/HCPCS: 51701; 74178; 87086; Q9967

== ENCOUNTER → 2024-08-25 11:25 | Outpatient (CLI) | payer MEDICARE, SELFPAY ==
[2022-10-25 22:15] VITALS: BMI 26.6
[2024-08-25 12:03] LABS: Appearance Urine UA CLEAR; Bilirubin Urine UA NEGATIVE (NEGATIVE); Color Urine UA YELLOW; Glucose Urine UA NEGATIVE (Negative); Ketones Urine UA NEGATIVE (NEGATIVE); Leukocyte Esterase Urine UA NEGATIVE (NEGATIVE); Nitrite Urine UA NEGATIVE (Negative); Occult Blood Urine UA NEGATIVE (Negative); Protein Urine UA NEGATIVE (Negative); Specific Gravity Urine UA 1.025 (1.000-1.035); Urobilinogen Urine UA 0.2 E.U./dL (0.2)
[2024-08-25 12:13] LABS: pH Urine UA 5.5 (4.5-8.0)
[2024-08-25 12:17] LABS: Bacteria Urine None Seen; RBC Urine None Seen (0-5/HPF); Squamous Epithelial Cell Urine None Seen (0-5/HPF); Urine Volume 10mL (spun); WBC Urine 5-10/HPF (0-5/HPF)
== END ==
PROVIDERS: PCP Physician Assistant; Referring Provider Physician Assistant; Visit Provider Physician Assistant
DX: R39.89 Other symptoms and signs involving the genitourinary system (principal)
CPT/HCPCS: 81001; 87086